=== PATIENT | male | born 1985 ===

== ENCOUNTER 2021-05-19 18:49 | Emergency (ER) | payer OTHER, SELFPAY ==
[2021-05-19 18:57] VITALS: BP 125/85; BP 142/75; PULSE 84; RESP 18; TEMP 37.3; O2SAT 96; BMI 30.1
[2021-05-19 19:05] LABS: Glucose, Whole Blood 140 mg/dL (60-115)
[2021-05-19 19:19] LABS: MANUAL DIFF FLAG NO
[2021-05-19 19:21] LABS: Basophils Percent Auto 0.5 % (0-2); Eosinophils Percent Auto 0.4 % (0-4); Hematocrit 41.8 % (42-52); Hemoglobin 14.5 g/dl (14.0-18.0); Imm Gran Abs Auto 0.01 X10*3/uL (0.00-0.03); Imm Gran Pct Auto 0.1 % (0.0-0.4); Lymphocytes Percent Auto 26.2 % (20-40); Mean Corpuscular HGB Conc 34.7 g/dl (31.0-36.0); Mean Corpuscular Hemoglobin 31.5 pg (27.0-33.0); Mean Corpuscular Volume 90.7 fL (80-98); Mean Platelet Volume 9.1 fL (9.4-12.4); Monocytes Absolute Auto 0.5 X10*3/uL (0.1-1.2); Monocytes Percent Auto 6.8 % (2-11); Neutrophils Absolute Auto 5.1 X10*3/uL (2.0-8.3); Platelet Count 260 X10*3/uL (160-400); Red Blood Count 4.61 X10*6/uL (4.60-5.80); Red Cell Distribution Width 13.2 % (11.0-16.0); White Blood Count 7.8 X10*3/uL (4.8-10.8)
--- NOTE | 2021-05-19 19:41 | ED_ITS ---
HPI - Seizure General Chief Complaint: Seizure Stated Complaint: hypoglycemia Time Seen by Provider: 05/19/21 19:41 Source: patient Mode of arrival: EMS Limitations: no limitations History of Present Illness HPI Narrative: patient's history of seizures for last 5 years after craniotomy for brain tumor taking Keppra and Depakote for last few days not taking his medication regularly and been drinking heavy drinking almost 1 pt of vodka daily had 2 seizures [id number] 45 minutes prior to arrival patient was alone at home he felt the seizure and sat down the couch according to him they lasted only for few minutes feels little confused after seizure but no fall no head injury Related Data Home Medications Medication Instructions Recorded Confirmed levetiracetam 1,000 mg tablet 1,000 mg PO BID 11/02/20 01/30/21 pantoprazole 40 mg tablet,delayed 40 mg PO DAILY 11/02/20 01/30/21 release Previous Rx's Medication Instructions Recorded nicotine (polacrilex) 4 mg buccal 4 mg PO Q8H PRN #81 maguns 01/08/21 lozenge citalopram 20 mg tablet 20 mg PO DAILY #90 tab 03/14/21 lorazepam 0.5 mg tablet 0.5 mg PO DAILY PRN 30 Days #30 tab 04/04/21 divalproex 250 mg tablet,delayed See Rx Instructions PO .COMPLEX 04/09/21 release #270 tab Allergies Allergy/AdvReac Type Severity Reaction Status Date / Time ibuprofen Allergy Unknown agitation Verified 03/07/20 00:00 No Known Allergies Allergy Unverified 08/10/20 15:45 [No Known Allergies*] Review of Systems Review of Systems: Constitutional : No Weight loss, No Fever, No Chills ENT/Mouth : No sore throat, No Rhinorrhea Eyes: No Eye Pain, No Swelling Cardiovascular : No Chest Pain, no palpitations Respiratory : No Cough, No Sputum, no shortness of breath Gastrointestinal : no Nausea, No Vomiting, No Diarrhea, No abdominal Pain, no black stools Genitourinary : No Dysuria, No Urinary Frequency Musculoskeletal : No joint pain, No Myalgias, No Joint Swelling Skin : No Skin Lesions, No rash Neuro : No Weakness, No Numbness, No Dizziness, No Headache Psych : No Anxiety/Panic, No Depression Heme/Lymph: No Bruising, No Lymphadenopathy Endocrine : No Polyuria, No Polydipsia All other systems reviewed and are negative [facility] Past Medical History Medical History Anxiety and depression Bipolar 1 disorder GERD (gastroesophageal reflux disease) Obesity (BMI 30-39.9) Seizure disorder Tobacco abuse Social History Social History Alcohol intake: current Alcohol intake frequency: a few times a month Advance Directives: No Advance Directives Information Provided: Yes Physical Exam Vital Signs: Vital Signs: Last Vital Signs Temp 99.1 F 05/19/21 18:57 Pulse 84 05/19/21 18:57 Resp 18 05/19/21 18:57 BP 125/85 05/19/21 18:57 Pulse Ox 96 05/19/21 18:57 Body Mass Index 30.1 Appearance: Alert. Oriented X3. No acute distress. Eyes: PERRLA, No Nystagmus ENT: Pharynx normal. Oral Mucosa moist no tongue bite Neck: Normal inspection. Neck supple. CVS: Normal heart rate and rhythm. Pulses normal. Respiratory: No respiratory distress. Equal air entry bilateral, no wheezing/rales/rhonchi Abdomen: Soft and nontender. Bowel sounds are present, no mass palpable, no CVA tenderness Skin: Skin warm and dry. Normal skin color. Normal skin turgor. Extremities: No lower extremity edema. No calf tenderness Neuro: Oriented X 3. No motor deficit. No sensory deficit.No cerebellar signs , cranial nerves II-XII intact MDM - Seizure MDM Narrative Medical decision making narrative: patient with schizophrenia with history of seizure disorder on multiple medication had 2 small seizures today usually he gets 1-2 seizures per month no postictal symptoms at this time patient id advised to follow with neurologist Lab Data Attestation: I reviewed the patient's lab results. Result diagrams: 05/19/21 19:15 05/19/21 19:15 Labs: Lab Results 05/19/21 05/19/21 05/19/21 Range/Units 18:56 19:15 19:15 WBC 7.8 (4.8-10.8) X10*3/uL RBC 4.61 (4.60-5.80) X10*6/uL Hgb 14.5 (14.0-18.0) g/dl Hct 41.8 L (42-52) % MCV 90.7 (80-98) fL MCH 31.5 (27.0-33.0) pg MCHC 34.7 (31.0-36.0) g/dl RDW 13.2 (11.0-16.0) % Plt Count 260 (160-400) X10*3/uL MPV 9.1 L (9.4-12.4) fL Immature Gran % (Auto) 0.1 (0.0-0.4) % Neut % (Auto) 66.0 (45-73) % Lymph % (Auto) 26.2 (20-40) % [place] % (Auto) 6.8 (2-11) % Eos % (Auto) 0.4 (0-4) % Baso % (Auto) 0.5 (0-2) % Lymph # (Auto) 2.0 (1.2-4.9) X10*3/uL [place] # (Auto) 0.5 (0.1-1.2) X10*3/uL Eos # (Auto) 0.0 (0.0-0.4) X10*3/uL Baso # (Auto) 0.0 (0.0-0.2) X10*3/uL Abs Immat Gran (auto) 0.01 (0.00-0.03) X10*3/uL Absolute Neuts (auto) 5.1 (2.0-8.3) X10*3/uL Absolute Nucleated RBC 0.000 (0.0-0.012) X10*3/uL Nucleated RBC % (auto) 0.0 (0.0-0.2) /100WBC Sodium 137 (135-145) mmol/L Potassium 3.5 (3.3-5.1) mmol/L Chloride 103 (96-108) mmol/L Carbon Dioxide 21 L (22-29) mmol/L Anion Gap 17 (12-20) BUN 7 L (9-16) mg/dL Creatinine 0.84 (0.5-1.4) mg/dL Estim Creat Clear Calc 142.1 Estimated GFR > 60 POC Glucose 140 H (60-115) mg/dL Random Glucose 144 H (60-115) mg/dL Calcium 8.5 (8.4-10.2) mg/dL Magnesium 1.5 L (1.6-2.6) mg/dL Total Bilirubin 0.4 (0.0-1.0) mg/dL Direct Bilirubin 0.3 (0.0-0.5) mg/dL AST 19 (5-37) U/L ALT 20 (0-40) U/L Alkaline Phosphatase 61 (39-117) U/L Total Protein 6.2 L (6.5-8.0) g/dL Albumin 3.6 (3.5-5.0) g/dL Lipase 13 (8-78) U/L Valproic Acid (50.0-100.0) mcg/mL Ethyl Alcohol mg/dL 05/19/21 05/19/21 Range/Units 19:15 19:15 WBC (4.8-10.8) X10*3/uL RBC (4.60-5.80) X10*6/uL Hgb (14.0-18.0) g/dl Hct (42-52) % MCV (80-98) fL MCH (27.0-33.0) pg MCHC (31.0-36.0) g/dl RDW (11.0-16.0) % Plt Count (160-400) X10*3/uL MPV (9.4-12.4) fL Immature Gran % (Auto) (0.0-0.4) % Neut % (Auto) (45-73) % Lymph % (Auto) (20-40) % [place] % (Auto) (2-11) % Eos % (Auto) (0-4) % Baso % (Auto) (0-2) % Lymph # (Auto) (1.2-4.9) X10*3/uL [place] # (Auto) (0.1-1.2) X10*3/uL Eos # (Auto) (0.0-0.4) X10*3/uL Baso # (Auto) (0.0-0.2) X10*3/uL Abs Immat Gran (auto) (0.00-0.03) X10*3/uL Absolute Neuts (auto) (2.0-8.3) X10*3/uL Absolute Nucleated RBC (0.0-0.012) X10*3/uL Nucleated RBC % (auto) (0.0-0.2) /100WBC Sodium (135-145) mmol/L Potassium (3.3-5.1) mmol/L Chloride (96-108) mmol/L Carbon Dioxide (22-29) mmol/L Anion Gap (12-20) BUN (9-16) mg/dL Creatinine (0.5-1.4) mg/dL Estim Creat Clear Calc Estimated GFR POC Glucose (60-115) mg/dL Random Glucose (60-115) mg/dL Calcium (8.4-10.2) mg/dL Magnesium (1.6-2.6) mg/dL Total Bilirubin (0.0-1.0) mg/dL Direct Bilirubin (0.0-0.5) mg/dL AST (5-37) U/L ALT (0-40) U/L Alkaline Phosphatase (39-117) U/L Total Protein (6.5-8.0) g/dL Albumin (3.5-5.0) g/dL Lipase (8-78) U/L Valproic Acid 47.2 L (50.0-100.0) mcg/mL Ethyl Alcohol 13 mg/dL Discharge Plan Discharge Clinical Impression: Seizure disorder Patient Disposition: Home, Self-Care Instructions: Epilepsy (ED) Additional Instructions: stop drinking alcohol and take medications on time. Follow with your neurologist Prescriptions: No Action nicotine (polacrilex) 4 mg lozenge 4 mg PO Q8H PRN (Reason: for nicotine cravings) Qty: 81 RF: 0 citalopram 20 mg tablet 20 mg PO DAILY Qty: 90 RF: 2 lorazepam 0.5 mg tablet 0.5 mg PO DAILY PRN (Reason: agitation) 30 Days Qty: 30 RF: 2 divalproex 250 mg tablet,delayed release (DR/EC) See Rx Instructions PO .COMPLEX Qty: 270 RF: 2 pantoprazole 40 mg tablet,delayed release (DR/EC) 40 mg PO DAILY RF: 0 levetiracetam [Keppra] 1,000 mg tablet 1,000 mg PO BID RF: 0 Interventions: ED Discharge Assessment Last Done: 05/19/21 20:44 Discharge Date/Time: 05/19/21 20:45
[2021-05-19 19:49] LABS: Ethanol 13 mg/dL
[2021-05-19 19:59] LABS: Valproate 47.2 mcg/mL (50.0-100.0)
[2021-05-19 20:08] LABS: Alanine Aminotransferase 20 U/L (0-40); Albumin Level 3.6 g/dL (3.5-5.0); Alkaline Phosphatase 61 U/L (39-117); Anion Gap 17 (12-20); Aspartate Amino Transferase 19 U/L (5-37); Bilirubin Direct 0.3 mg/dL (0.0-0.5); Bilirubin Total 0.4 mg/dL (0.0-1.0); Blood Urea Nitrogen 7 mg/dL (9-16); Calcium 8.5 mg/dL (8.4-10.2); Carbon Dioxide 21 mmol/L (22-29); Chloride 103 mmol/L (96-108); Creatinine Clr Calc Pharmacy 142.1; Estimated Glomerular Filt Rate > 60; Glucose Random 144 mg/dL (60-115); Lipase 13 U/L (8-78); Magnesium 1.5 mg/dL (1.6-2.6); Potassium 3.5 mmol/L (3.3-5.1); Sodium 137 mmol/L (135-145); Total Protein 6.2 g/dL (6.5-8.0)
== END 2021-05-19 20:45 | disposition home or self-care (01) ==
PROVIDERS: Emergency Provider Internal Medicine
DX: G40.909 Epilepsy, unspecified, not intractable, without status epilepticus (principal); F20.9 Schizophrenia, unspecified; Z79.899 Other long term (current) drug therapy
CPT/HCPCS: 36415; 80053; 80076; 80164; 82077; 82248; 82947; 83690; 83735; 85025; 99283

== ENCOUNTER 2022-03-29 17:57 | Inpatient (IN) | payer OTHER, SELFPAY ==
[2022-03-29 18:12] VITALS: BP 118/82; BP 131/75; PULSE 79; PULSE 84; RESP 18; TEMP 37.2; O2SAT 97; O2SAT 98; BMI 33.2
--- NOTE | 2022-03-29 18:56 | ED_ITS ---
HPI - Seizure General Chief Complaint: Seizure Stated Complaint: seizures Time Seen by Provider: 03/29/22 18:05 Source: patient Mode of arrival: EMS Limitations: no limitations History of Present Illness HPI Narrative: 37-year-old male with a past medical history of alcohol abuse and a seizure disorder status post brain tumor presents for seizures today. Patient states he had 2 or 3 seizures today there were not witnessed. The last 1 was just prior to arrival. States they lasted for couple of minutes. States he does have a history of alcohol withdrawal seizures, normally drinks 15 drinks a day, and his last drink was 24 hours ago. States he was hospitalized for alcohol withdrawal seizure at [facility] last year Today he said he was aware during his seizures, he had no loss of consciousness, no head strike, his face went numb but now that sensation is gone. He is on Keppra and Depakote. He does not see a neurologist. Related Data Previous Rx's Medication Instructions Recorded nicotine (polacrilex) 4 mg buccal 4 mg PO Q8H PRN #81 magnus 01/08/21 lozenge folic acid 1 mg tablet 1 mg PO DAILY 90 Days #90 tab 07/12/21 pyridoxine (vitamin B6) 50 mg 50 mg PO DAILY 90 Days #90 tab 07/12/21 tablet thiamine HCl (vitamin B1) 100 mg 100 mg PO DAILY 90 Days #90 tab 07/12/21 tablet lorazepam 0.5 mg tablet 0.5 mg PO DAILY PRN 30 Days #30 tab 11/22/21 divalproex 250 mg tablet,delayed 500 mg PO BID #270 tab 12/05/21 release citalopram 20 mg tablet 20 mg PO DAILY #90 tab 12/26/21 pantoprazole 40 mg tablet,delayed 40 mg PO DAILY 90 Days #90 tab 12/26/21 release levetiracetam 1,000 mg tablet 1,000 mg PO BID 90 Days #180 tab 01/17/22 (Keppra) acamprosate 333 mg tablet,delayed 666 mg PO TID 30 Days #180 tab 02/03/22 release Allergies Allergy/AdvReac Type Severity Reaction Status Date / Time ibuprofen Allergy Unknown agitation Verified 07/12/21 08:54 No Known Allergies Allergy Verified 07/12/21 08:54 [No Known Allergies*] Review of Systems Constitutional: Constitutional: Denies body ache(s), Denies chills, Denies fatigue, Denies fever(s), Denies headache(s), Denies malaise and Denies weakness Eyes: Eyes: Denies blurry vision and Denies diplopia ENT: Denies vertigo, Denies dizziness, Denies headache(s) and Denies throat swelling Cardiovascular: Cardiovascular: Denies chest pain, Denies syncope, Denies leg edema, Denies lightheadedness, Denies Loss of Consciousness, Denies palpitations and Denies dyspnea Respiratory: Respiratory: Denies chest congestion, Denies cough and Denies dyspnea Gastrointestinal: Gastrointestinal: Denies abdominal pain, Denies hematochezia, Denies constipation, Denies diarrhea and Denies vomiting Genitourinary: Genitourinary: Reports no additional male genitourinary complaints Musculoskeletal: Musculoskeletal: Reports no additional musculoskeletal complaints Neurologic: Denies Abnormal speech present, Denies confusion, Denies vertigo, Denies dizziness, Denies syncope, Denies headache(s), Reports seizure-like activity, Denies Sensory deficit (Neuro) and Denies weakness Psychiatric: Psychiatric: Denies anxiety, Denies confusion and Denies depression Endocrine: Endocrine: Denies fatigue and Denies palpitations Allergic/Immunologic: Allergic/Immunologic: Denies throat swelling PMFSH Past Medical History Medical History Anxiety and depression Bipolar 1 disorder GERD (gastroesophageal reflux disease) Obesity (BMI 30-39.9) Seizure disorder Tobacco abuse Social History Social History Housing: Apartment Alcohol intake: current Alcohol intake frequency: a few times a month Patient Tobacco Use Status: Current everyday Tobacco user Tobacco use type: Cigarette Cigarette Packs Per Day: 0.5 e-Cigarette/Vaping Use: Never Used Second Hand Smoke Exposure: No Advance Directives: No Advance Directives Information Provided: No service: No Current occupational status: unemployed Physical Exam Vital Signs: Vital Signs: Last Vital Signs Temp 99.1 F 03/29/22 20:36 Pulse 80 03/29/22 20:36 Resp 20 03/29/22 20:36 BP 128/79 03/29/22 20:36 Pulse Ox 97 03/29/22 20:36 BMI result Body Mass Index 33.2 Const: Other: Patient tremulous and sweaty General: No confusion Nutritional Appearance: well nourished Orientation/consciousness: patient oriented x3 and No confusion Limitations: no limitations HEENT: Other: tongue is normal, no lesions or bites on tongue or in buccal mucosa Head: Yes normal to inspection, Yes normocephalic and Yes atraumatic Ears: hearing grossly normal bilaterally General nose exam: Normal external nose present Face and sinus: Yes normal facial exam Mouth: Normal oral and palatal mucosa present, lip normal, tongue normal and moist mucous membranes Throat: Yes posterior oropharynx normal Eyes: Conjunctivae: conjunctivae normal Pupils: Equal, round and reactive pupils present EOM: EOMs intact bilaterally Neck: Neck: Yes full ROM, Yes no lymphadenopathy and Yes supple Resp: Effort & Inspection: normal respiratory effort and able to speak in complete sentences Auscultation: clear to auscultation bilaterally, no crackles, no rales, no rhonchi and no wheezes Cardio: Rate: regular rate Rhythm: regular rhythm Heart sounds: S1 normal heart sound present and S2 normal heart sound present GI: Inspection: Yes normal to inspection Palpation (GI): Soft to palpation, nontender, no guarding and not rigid Percussion: Yes normal to percussion Auscultation: normal bowel sounds Skin: General skin exam: no rashes or lesions noted Neuro: General: patient oriented x3, No confusion and Unable to assess gait Cranial nerves: Yes CN's II-XII intact bilaterally, Yes Facial sensation intact/muscles of mastication intact, Yes Equal, round and reactive pupils present, Yes Normal accommodation reflex present, Yes Bilaterally intact EOM present, Yes Nystagmus not present, Yes Normal facial strength present, Yes M idline tongue present, Yes Ability to bilaterally rotate head present and Yes Ability to bilaterally elevate shoulders present Cognition (Neuro): normal cognition Speech: No Abnormal speech present Gait exam (Neuro): Unable to assess gait Motor exam (neuro): 5/5 motor strength present throughout and Pronator motor function not present Sensory Exam: No Sensory deficit (Neuro) Deep tendon reflexes (DTR's): Right patellar reflex intensity grade: 1+ and Left patellar reflex intensity grade: 1+ Coordination: [id number] test normal and [id number] test normal Pupils: Normal pupillary reactivity/response: bilateral Extrem: General: Yes normal to inspection and Yes full ROM Psych: Appearance: grossly normal Affect: normal affect Attitude: cooperative Thought process: Normal thought process present Course Course Course Narrative: 37-year-old male with seizure disorder presents for reported 2-3 seizures today, last 1 just prior to arrival. Patient was not incontinent, did not bite his tongue. States he was aware during the whole seizure did not lose consciousness, did not strike his head. On exam, patient is tremulous and mildly diaphoretic, is neurologically intact, Patient is scoring 13 on CIWA, 1 mg Ativan given Will get alcohol, labs, chest x-ray, urine Drug screen Loaded patient with Keppra Reevaluation(s) Reevaluation #1: Alcohol is negative, CBC and CMP are unremarkable. Awaiting urine and urine dr ug screen. CIWA score is now 2. Will get lactic acid, if that returns positive, will admit for observation Reevaluation #2: Discussed with Dr Moreira, would like to admit for observation. UA negative. Lactic 1.2, Urine tox screen is negative. Lab tells me Keppra level needs to be drawn in the morning for send out Signed pt out to Dr Serna, pending if Hospitalist will admit for observation or not MDM - Seizure Lab Data Result diagrams: 03/29/22 18:57 03/29/22 18:57 Labs: Lab Results 03/29/22 03/29/22 03/29/22 Range/Units 18:57 18:57 18:57 WBC 7.2 (4.8-10.8) X10*3/uL RBC 4.84 (4.60-5.80) X10*6/uL Hgb 14.8 (14.0-18.0) g/dl Hct 42.0 (42.0-52.0) % MCV 86.8 (80.0-98.0) fL MCH 30.6 (27.0-33.0) pg MCHC 35.2 (31.0-36.0) g/dl RDW 12.8 (11.0-16.0) % Plt Count 305 (160-400) X10*3/uL MPV 8.9 L (9.4-12.4) fL Immature Gran % (Auto) 0.6 H (0.0-0.4) % Neut % (Auto) 67.1 (45-73) % Lymph % (Auto) 23.8 (20-40) % [place] % (Auto) 7.5 (2-11) % Eos % (Auto) 0.3 (0-4) % Baso % (Auto) 0.7 (0-2) % Lymph # (Auto) 1.7 (1.2-4.9) X10*3/uL [place] # (Auto) 0.5 (0.1-1.2) X10*3/uL Eos # (Auto) 0.0 (0.0-0.4) X10*3/uL Baso # (Auto) 0.1 (0.0-0.2) X10*3/uL Abs Immat Gran (auto) 0.04 H (0.00-0.03) X10*3/uL Absolute Neuts (auto) 4.8 (2.0-8.3) x10*3/uL Absolute Nucleated RBC 0.000 (0.0-0.012) X10*3/uL Nucleated RBC % (auto) 0.0 (0.0-0.2) /100WBC Sodium 140 (135-145) mmol/L Potassium 4.2 (3.3-5.1) mmol/L Chloride 108 (96-108) mmol/L Carbon Dioxide 24 (22-29) mmol/L Anion Gap 12 (12-20) BUN 9 (9-16) mg/dL Creatinine 1.00 (0.5-1.4) mg/dL Estim Creat Clear Calc 120.2 Estimated GFR > 60 Random Glucose 98 (60-115) mg/dL Lactic Acid (0.5-2.0) mmol/L Calcium 9.2 D (8.4-10.2) mg/dL Total Bilirubin 0.7 (0.0-1.0) mg/dL AST 23 (5-37) U/L ALT 38 (0-40) U/L Alkaline Phosphatase 65 (39-117) U/L Total Protein 6.7 (6.5-8.0) g/dL Albumin 3.6 (3.5-5.0) g/dL Urine Color Urine Appearance Urine pH (5.0-8.0) Ur Specific [place] (1.005-1.025) Urine Protein (NEG-TRACE) MG/DL Urine Glucose (UA) (NEG) MG/DL Urine Ketones (NEG) MG/DL Urine Blood (NEG) Urine Nitrite (NEG) Ur Leukocyte Esterase (NEG) Urine Opiates Screen (Not Detect) Urine Fentanyl Screen (Not Detect) Ur Barbiturates Screen (Not Detect) Ur Phencyclidine Scrn (Not Detect) Ur Amphetamines Screen (Not Detect) U Benzodiazepines Scrn (Not Detect) Urine Cocaine Screen (Not Detect) U Marijuana (THC) Screen (Not Detect) Ethyl Alcohol < 10 mg/dL 03/29/22 03/29/22 03/29/22 Range/Units 20:41 20:41 20:41 WBC (4.8-10.8) X10*3/uL RBC (4.60-5.80) X10*6/uL Hgb (14.0-18.0) g/dl Hct (42.0-52.0) % MCV (80.0-98.0) fL MCH (27.0-33.0) pg MCHC (31.0-36.0) g/dl RDW (11.0-16.0) % Plt Count (160-400) X10*3/uL MPV (9.4-12.4) fL Immature Gran % (Auto) (0.0-0.4) % Neut % (Auto) (45-73) % Lymph % (Auto) (20-40) % [place] % (Auto) (2-11) % Eos % (Auto) (0-4) % Baso % (Auto) (0-2) % Lymph # (Auto) (1.2-4.9) X10*3/uL [place] # (Auto) (0.1-1.2) X10*3/uL Eos # (Auto) (0.0-0.4) X10*3/uL Baso # (Auto) (0.0-0.2) X10*3/uL Abs Immat Gran (auto) (0.00-0.03) X10*3/uL Absolute Neuts (auto) (2.0-8.3) x10*3/uL Absolute Nucleated RBC (0.0-0.012) X10*3/uL Nucleated RBC % (auto) (0.0-0.2) /100WBC Sodium (135-145) mmol/L Potassium (3.3-5.1) mmol/L Chloride (96-108) mmol/L Carbon Dioxide (22-29) mmol/L Anion Gap (12-20) BUN (9-16) mg/dL Creatinine (0.5-1.4) mg/dL Estim Creat Clear Calc Estimated GFR Random Glucose (60-115) mg/dL Lactic Acid 1.2 (0.5-2.0) mmol/L Calcium (8.4-10.2) mg/dL Total Bilirubin (0.0-1.0) mg/dL AST (5-37) U/L ALT (0-40) U/L Alkaline Phosphatase (39-117) U/L Total Protein (6.5-8.0) g/dL Albumin (3.5-5.0) g/dL Urine Color YELLOW Urine Appearance CLEAR Urine pH 8.0 (5.0-8.0) Ur Specific [place] 1.015 (1.005-1.025) Urine Protein NEG (NEG-TRACE) MG/DL Urine Glucose (UA) NEG (NEG) MG/DL Urine Ketones NEG (NEG) MG/DL Urine Blood NEG (NEG) Urine Nitrite NEG (NEG) Ur Leukocyte Esterase NEG (NEG) Urine Opiates Screen Not Detected (Not Detect) Urine Fentanyl Screen Not Detected (Not Detect) Ur Barbiturates Screen Not Detected (Not Detect) Ur Phencyclidine Scrn Not Detected (Not Detect) Ur Amphetamines Screen Not Detected (Not Detect) U Benzodiazepines Scrn Not Detected (Not Detect) Urine Cocaine Screen Not Detected (Not Detect) U Marijuana (THC) Screen Not Detected (Not Detect) Ethyl Alcohol mg/dL Discharge Plan Discharge Clinical Impression: Generalized seizure, Alcohol abuse with withdrawal Patient Disposition: Admitted As Inpatient
[2022-03-29] MEDS: LORazepam 2 MG/ML VIAL 1 MG IVPUSH (19:00)
[2022-03-29] MEDS: levETIRAcetam in NaCl (iso-os) 1,000 MG/100 ML PIGGYBACK 400 MG IV (19:00)
[2022-03-29 19:01] LABS: MANUAL DIFF FLAG NO
[2022-03-29 19:23] LABS: Ethanol < 10 mg/dL
[2022-03-29 19:24] LABS: Basophils Absolute Auto 0.1 X10*3/uL (0.0-0.2); Basophils Percent Auto 0.7 % (0-2); Eosinophils Percent Auto 0.3 % (0-4); Hemoglobin 14.8 g/dl (14.0-18.0); Imm Gran Abs Auto 0.04 X10*3/uL (0.00-0.03); Imm Gran Pct Auto 0.6 % (0.0-0.4); Lymphocytes Absolute Auto 1.7 X10*3/uL (1.2-4.9); Lymphocytes Percent Auto 23.8 % (20-40); Mean Corpuscular HGB Conc 35.2 g/dl (31.0-36.0); Mean Corpuscular Hemoglobin 30.6 pg (27.0-33.0); Mean Corpuscular Volume 86.8 fL (80.0-98.0); Mean Platelet Volume 8.9 fL (9.4-12.4); Monocytes Absolute Auto 0.5 X10*3/uL (0.1-1.2); Monocytes Percent Auto 7.5 % (2-11); Neutrophils Absolute Auto 4.8 x10*3/uL (2.0-8.3); Neutrophils Percent Auto 67.1 % (45-73); Platelet Count 305 X10*3/uL (160-400); Red Blood Count 4.84 X10*6/uL (4.60-5.80); Red Cell Distribution Width 12.8 % (11.0-16.0); White Blood Count 7.2 X10*3/uL (4.8-10.8)
[2022-03-29 19:26] LABS: Alanine Aminotransferase 38 U/L (0-40); Albumin Level 3.6 g/dL (3.5-5.0); Alkaline Phosphatase 65 U/L (39-117); Anion Gap 12 (12-20); Aspartate Amino Transferase 23 U/L (5-37); Bilirubin Total 0.7 mg/dL (0.0-1.0); Blood Urea Nitrogen 9 mg/dL (9-16); Calcium 9.2 mg/dL (8.4-10.2); Carbon Dioxide 24 mmol/L (22-29); Chloride 108 mmol/L (96-108); Creatinine Clr Calc Pharmacy 120.2; Estimated Glomerular Filt Rate > 60; Glucose Random 98 mg/dL (60-115); Potassium 4.2 mmol/L (3.3-5.1); Sodium 140 mmol/L (135-145); Total Protein 6.7 g/dL (6.5-8.0)
[2022-03-29 19:29] VITALS: BP 134/83; PULSE 76; RESP 15; O2SAT 97
[2022-03-29 20:36] VITALS: BP 128/79; PULSE 80; RESP 20; TEMP 37.3; O2SAT 97
[2022-03-29 20:54] LABS: Appearance Urine CLEAR; Color Urine YELLOW; Glucose Urine UA NEG (NEG); Leukocyte Esterase Urine NEG (NEG); Nitrite Urine NEG (NEG); Specific Gravity - Urine 1.015 (1.005-1.025); Urine Blood NEG (NEG); Urine Ketones NEG (NEG); Urine Protein NEG (NEG-TRACE)
[2022-03-29 21:05] LABS: Lactic Acid 1.2 mmol/L (0.5-2.0)
[2022-03-29 21:10] LABS: Amphetamine Screen Urine Not Detected (Not Detect); Barbiturates, Urine Not Detected (Not Detect); Benzodiazepines Screen Urine Not Detected (Not Detect); Cannabinoid Screen Urine Not Detected (Not Detect); Cocaine Screen Urine Not Detected (Not Detect); Fentanyl, urine Not Detected (Not Detect); Opiate Screen Urine Not Detected (Not Detect); Phencyclidine Screen Urine Not Detected (Not Detect)
[2022-03-29 21:36] LABS: Valproate 31.2 mcg/mL (50.0-100.0)
[2022-03-29 21:55] LABS: COVID-19 Test Negative (Negative)
[2022-03-29] MEDS: PHENobarbitaL 200 MG, PHENobarbitaL 60 MG, PHENobarbitaL 15 MG 275 MG PO (22:57)
[2022-03-29] MEDS: Enoxaparin Sodium 40 MG/0.4 ML SYRINGE SUBCUT (22:58)
[2022-03-29] MEDS: 0.9 % Sodium Chloride Flush 3 ML SYRINGE IVFLUSH (23:00)
[2022-03-30] VITALS (8 sets, daily range): BP systolic 123–145; BP diastolic 72–95; PULSE 62–84; RESP 18–21; TEMP 36.1–37.2; O2SAT 94–96; BMI 35.6
[2022-03-30] MEDS: PHENobarbitaL 200 MG, PHENobarbitaL 15 MG 215 MG PO ×2 (01:32→04:33)
[2022-03-30 06:49] LABS: MANUAL DIFF FLAG NO
[2022-03-30 06:56] LABS: Basophils Absolute Auto 0.1 X10*3/uL (0.0-0.2); Basophils Percent Auto 0.7 % (0-2); Eosinophils Absolute Auto 0.1 X10*3/uL (0.0-0.4); Eosinophils Percent Auto 1.1 % (0-4); Hemoglobin 14.2 g/dl (14.0-18.0); Imm Gran Abs Auto 0.03 X10*3/uL (0.00-0.03); Imm Gran Pct Auto 0.4 % (0.0-0.4); Lymphocytes Absolute Auto 2.8 X10*3/uL (1.2-4.9); Lymphocytes Percent Auto 38.8 % (20-40); Mean Corpuscular HGB Conc 34.6 g/dl (31.0-36.0); Mean Corpuscular Hemoglobin 30.1 pg (27.0-33.0); Monocytes Absolute Auto 0.5 X10*3/uL (0.1-1.2); Monocytes Percent Auto 7.2 % (2-11); Neutrophils Absolute Auto 3.7 x10*3/uL (2.0-8.3); Neutrophils Percent Auto 51.8 % (45-73); Platelet Count 282 X10*3/uL (160-400); Red Blood Count 4.71 X10*6/uL (4.60-5.80); Red Cell Distribution Width 12.5 % (11.0-16.0); White Blood Count 7.1 X10*3/uL (4.8-10.8)
[2022-03-30 07:11] LABS: Anion Gap 12 (12-20); Blood Urea Nitrogen 9 mg/dL (9-16); Carbon Dioxide 26 mmol/L (22-29); Chloride 104 mmol/L (96-108); Creatinine Clr Calc Pharmacy 115.4; Estimated Glomerular Filt Rate > 60; Glucose Random 87 mg/dL (60-115); Potassium 3.8 mmol/L (3.3-5.1); Sodium 138 mmol/L (135-145)
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
--- NOTE | 2022-03-30 08:06 | PHA.MEDREC ---
Pharmacy Consult ? Medication Reconciliation Pharmacy has completed the medication reconciliation. Per patient, last time medication was taken was before he got here yesterday. Thanks Arvind
[2022-03-30] MEDS: Thiamine HCL 100 MG TABLET PO (09:04)
[2022-03-30] MEDS: Folic Acid 1 MG TABLET PO (09:04)
[2022-03-30] MEDS: Nicotine 21 MG PATCH.TD24 TRANSDERMA (09:04)
[2022-03-30] MEDS: 0.9 % Sodium Chloride Flush 3 ML SYRINGE IVFLUSH ×2 (09:06→17:26)
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
--- NOTE | 2022-03-30 15:31 | HO.PM.IMPN ---
Subjective Subjective Date of Service: 03/30/22 Interval History: the patient was seen and evaluated this morning Laying in bed, feels comfortable Denies any recurrence of seizure No reported other overnight events. Systemic review: No fever, chills or weakness No chest pain, palpitation No shortness of breath or coughing No abdominal pain, nausea or vomiting No urinary symptoms No any rash or wounds Physical Exam Vital Signs: Vital Signs: Last Vital Signs Temp 99.0 F 03/30/22 12:00 Pulse 84 03/30/22 12:00 Resp 20 03/30/22 12:00 BP 135/84 03/30/22 12:00 Pulse Ox 94 03/30/22 12:00 BMI result Body Mass Index 35.6 Const: Other: Constitutional : Alert, oriented, mildly anxious Neck : Normal inspection, Supple Cardiovascular : RRR, no JVP, no lower extremity edema Respiratory : fair bilateral air entry, no crackles, wheezes or rhonchi Gastrointestinal: soft, lax, Normal bowel sounds, Non tender Skin : Warm, Dry Neurological : Alert & oriented x3, No focal deficit , CN 2-12 within normal Objective Data Active Medications Acetaminophen (Acetaminophen 325 Mg Tablet) 650 mg PO Q6H PRN PRN Reason: Pain, Mild (Pain Scale 1-3) Docusate Sodium (Docusate Sodium 100 Mg Capsule) 100 mg PO DAILY PRN PRN Reason: Constipation Enoxaparin Sodium (Enoxaparin Sodium 40 Mg/0.4 Ml Syringe) 40 mg SUBCUT Q24H [facility] Last Admin: 03/29/22 22:58 Dose: 40 mg Documented by: HORTENSIA Folic Acid (Folic Acid 1 Mg Tablet) 1 mg PO DAILY [facility] Last Admin: 03/30/22 09:04 Dose: 1 mg Documented by: [facility] Nicotine (Nicotine 21 Mg Patch.Td24) 21 mg TRANSDERMA DAILY [facility] Last Admin: 03/30/22 09:04 Dose: 21 mg Documented by: [facility] Ondansetron HCl (Ondansetron Hcl 4 Mg/2 Ml Vial) 4 mg IVPUSH Q8H PRN PRN Reason: Nausea and Vomiting Pharmacy Consult (Consult Rx Etoh Phenob Po Dose) 1 each MISCELLANE ONCE PRN; Protocol PRN Reason: Consult order Pharmacy Consult (Consult Rx Perform Med Rec) 1 each MISCELLANE ONCE PRN PRN Reason: Consult order Phenobarbital (Phenobarbital 15 Mg Tablet) 45 mg PO BID [facility]; Protocol Stop: 04/01/22 09:01 Phenobarbital (Phenobarbital 30 Mg Tablet) 30 mg PO BID [facility]; Protocol Stop: 04/03/22 09:01 Phenobarbital (Phenobarbital 30 Mg Tablet) 30 mg PO DAILY [facility]; Protocol Stop: 04/04/22 09:01 Sodium Chloride (0.9 % Sodium Chloride Flush 3 Ml Syringe) 3 ml IVFLUSH QSHIFT [facility] Last Admin: 03/30/22 09:06 Dose: 3 ml Documented by: [facility] Thiamine HCl (Thiamine Hcl 100 Mg Tablet) 100 mg PO DAILY [facility] Last Admin: 03/30/22 09:04 Dose: 100 mg Documented by: ROC Labs CBC & Chem 7: 03/30/22 06:37 03/30/22 06:37 Labs: Laboratory Results - last 24 hr 03/29/22 03/29/22 03/29/22 18:57 18:57 18:57 MCV 86.8 MCH 30.6 MCHC 35.2 RDW 12.8 Plt Count 305 MPV 8.9 L Immature Gran % (Auto) 0.6 H Neut % (Auto) 67.1 Lymph % (Auto) 23.8 [facility] % (Auto) 7.5 Eos % (Auto) 0.3 Baso % (Auto) 0.7 Lymph # (Auto) 1.7 [facility] # (Auto) 0.5 Eos # (Auto) 0.0 Baso # (Auto) 0.1 Abs Immat Gran (auto) 0.04 H Absolute Neuts (auto) 4.8 Absolute Nucleated RBC 0.000 Nucleated RBC % (auto) 0.0 Anion Gap 12 Estim Creat Clear Calc 120.2 Estimated GFR > 60 Random Glucose 98 Lactic Acid Calcium 9.2 D Total Bilirubin 0.7 AST 23 ALT 38 Alkaline Phosphatase 65 Total Protein 6.7 Albumin 3.6 Urine Color Urine Appearance Urine pH Ur Specific [place] Urine Protein Urine Glucose (UA) Urine Ketones Urine Blood Urine Nitrite Ur Leukocyte Esterase Urine Opiates Screen Urine Fentanyl Screen Ur Barbiturates Screen Valproic Acid 31.2 L Ur Phencyclidine Scrn Ur Amphetamines Screen U Benzodiazepines Scrn Urine Cocaine Screen U Marijuana (THC) Screen Ethyl Alcohol < 10 COVID-19 ([facility]) COVID-19 Clin Com 03/29/22 03/29/22 03/29/22 20:41 20:41 20:41 MCV MCH MCHC RDW Plt Count MPV Immature Gran % (Auto) Neut % (Auto) Lymph % (Auto) [facility] % (Auto) Eos % (Auto) Baso % (Auto) Lymph # (Auto) [facility] # (Auto) Eos # (Auto) Baso # (Auto) Abs Immat Gran (auto) Absolute Neuts (auto) Absolute Nucleated RBC Nucleated RBC % (auto) Anion Gap Estim Creat Clear Calc Estimated GFR Random Glucose Lactic Acid 1.2 Calcium Total Bilirubin AST ALT Alkaline Phosphatase Total Protein Albumin Urine Color YELLOW Urine Appearance CLEAR Urine pH 8.0 Ur Specific [place] 1.015 Urine Protein NEG Urine Glucose (UA) NEG Urine Ketones NEG Urine Blood NEG Urine Nitrite NEG Ur Leukocyte Esterase NEG Urine Opiates Screen Not Detected Urine Fentanyl Screen Not Detected Ur Barbiturates Screen Not Detected Valproic Acid Ur Phencyclidine Scrn Not Detected Ur Amphetamines Screen Not Detected U Benzodiazepines Scrn Not Detected Urine Cocaine Screen Not Detected U Marijuana (THC) Screen Not Detected Ethyl Alcohol COVID-19 ([facility]) COVID-19 [facility] 03/29/22 03/30/22 03/30/22 21:24 06:37 06:37 MCV 87.0 MCH 30.1 MCHC 34.6 RDW 12.5 Plt Count 282 MPV 9.0 L Immature Gran % (Auto) 0.4 Neut % (Auto) 51.8 Lymph % (Auto) 38.8 [facility] % (Auto) 7.2 Eos % (Auto) 1.1 Baso % (Auto) 0.7 Lymph # (Auto) 2.8 [facility] # (Auto) 0.5 Eos # (Auto) 0.1 Baso # (Auto) 0.1 Abs Immat Gran (auto) 0.03 Absolute Neuts (auto) 3.7 Absolute Nucleated RBC 0.000 Nucleated RBC % (auto) 0.0 Anion Gap 12 Estim Creat Clear Calc 115.4 Estimated GFR > 60 Random Glucose 87 Lactic Acid Calcium 9.0 Total Bilirubin AST ALT Alkaline Phosphatase Total Protein Albumin Urine Color Urine Appearance Urine pH Ur Specific [place] Urine Protein Urine Glucose (UA) Urine Ketones Urine Blood Urine Nitrite Ur Leukocyte Esterase Urine Opiates Screen Urine Fentanyl Screen Ur Barbiturates Screen Valproic Acid Ur Phencyclidine Scrn Ur Amphetamines Screen U Benzodiazepines Scrn Urine Cocaine Screen U Marijuana (THC) Screen Ethyl Alcohol COVID-19 ([facility]) Negative COVID-19 Clin Com See Note Assessment and Plan (1) Breakthrough seizure: Status: Acute (2) Alcohol abuse with withdrawal: Status: Acute Plan 37 male with past medical history bipolar disorder, alcohol abuse who presents to the hospital with seizure episode # breakthrough seizure secondary to noncompliance with his medications as well as alcohol withdrawal seizure Continue Walt Kline # alcohol abuse with withdrawal CIWA of 13 on arrival to the ED Continue phenobarb protocol folic acid and thiamine supplement # nicotine abuse patient smokes 1 pack per day nicotine patch daily # bipolar disorder/anxiety and depression resume home medications DVT prophylaxis: Lovenox Quality Stroke Does the patient have a stroke diagnosis?: No VTE Prior VTE?: No VTE Risk Level:: Medical - moderate - high VTE Device Contraindication: Treatment Not Indicated VTE Drug Contraindication: N/A - Med Ordered
[2022-03-30] MEDS: levETIRAcetam 1,000 MG TABLET 1000 MG PO ×2 (17:26→20:43)
[2022-03-30] MEDS: Divalproex Sodium 500 MG TABLET.DR PO ×2 (17:26→20:43)
[2022-03-30] MEDS: PHENobarbitaL 15 MG TABLET 45 MG PO (20:42)
[2022-03-30] MEDS: Acamprosate Calcium 333 MG TABLET.DR 666 MG PO (20:43)
[2022-03-30] MEDS: Enoxaparin Sodium 40 MG/0.4 ML SYRINGE SUBCUT (22:10)
[2022-03-31] MEDS: 0.9 % Sodium Chloride Flush 3 ML SYRINGE IVFLUSH ×2 (00:45→10:51)
[2022-03-31 03:51] VITALS: BP 124/78; PULSE 75; RESP 18; TEMP 36.2; O2SAT 97
[2022-03-31 07:22] LABS: Anion Gap 12 (12-20); Blood Urea Nitrogen 10 mg/dL (9-16); Carbon Dioxide 24 mmol/L (22-29); Chloride 103 mmol/L (96-108); Creatinine Clr Calc Pharmacy 128.5; Estimated Glomerular Filt Rate > 60; Glucose Random 82 mg/dL (60-115); Potassium 4.1 mmol/L (3.3-5.1); Sodium 135 mmol/L (135-145)
[2022-03-31 07:58] VITALS: BP 135/61; PULSE 77; RESP 20; TEMP 36.5; O2SAT 95
--- NOTE | 2022-03-31 10:25 | P.DS_ITS ---
DS: Providers Provider Date of Service: 03/31/22 Date of admission: 03/29/22 22:10 Primary care physician: Unknown Physician DS: Diagnosis Discharge Diagnosis (1) Breakthrough seizure: Status: Acute (2) Alcohol abuse with withdrawal: Status: Acute (3) Tobacco abuse: Status: Acute DS: Summary Hospital Course Hospital Course: Admission note HPI This is a 37-year-old male with past medical history of bipolar disorder, anxiety and depression, seizure disorder on Depakote and Keppra who presents to the hospital with breakthrough seizure.? Patient reports that he was not feeling well today, he had a binge drinking episode from Friday through , he stop drinking on , and has been feeling very jittery and anxious on the day prior to presentation.? ProStat he got home from work and had to seizure- like episodes where he was lucid through 1 of them.? He denies any loss of bladder or bowel control, no biting his tongue, reports compliance with his antiseizure medications.? Patient reports history of withdrawal seizure.? He reports being postictal and confused on waking up On arrival to the ED patient hemodynamically stable with no significant abnormal vitals Labs were significant for WBC count of 7.2, lactic acid of 1.2, UA negative, valproic acid of 31.2 Hospital course The patient was admitted on phenobarbital protocol for alcohol withdrawal symptoms. His CIWA score was of 15 at time of presentation and dropped to 0 at the day of discharge. The patient started on his home medications for seizure with good response as no more seizure activity happen during the hospital stay. He was found to have low valproic acid level and Keppra level still pending at the day of discharge but he report being not adherent to his home medications. Smoker, will discharge in nicotine patches. Advised to quit smoking. We advise you complete abstinence from alcohol continue home medications as prescribed Time Spent with Patient Time attestation: Total time spent providing and/or coordinating discharge services: Discharge coordination time: Greater than 30 minutes Quality: Safe Use of Opioids Does Pt have an Active Cancer Diagnosis on the Problem List?: No Quality: Stroke Does the patient have a stroke diagnosis?: No Physical Exam Vital Signs: Vital Signs: Last Vital Signs Temp 97.7 F 03/31/22 07:58 Pulse 77 03/31/22 07:58 Resp 20 03/31/22 07:58 BP 135/61 03/31/22 07:58 Pulse Ox 95 03/31/22 07:58 BMI result Body Mass Index 35.6 Const: Other: Constitutional : Alert, oriented, not in distress Neck : Normal inspection, Supple Cardiovascular : RRR, no JVP, no lower extremity edema Respiratory : fair bilateral air entry, no crackles, wheezes or rhonchi Gastrointestinal: soft, lax, Normal bowel sounds, Non tender Skin : Warm, Dry Neurological : Alert & oriented x3, No focal deficit , CN 2-12 within normal DS: Data Data Completed and Pending Labs on day of discharge: Laboratory Results - last 24 hr 03/31/22 05:58 Sodium 135 Potassium 4.1 Chloride 103 Carbon Dioxide 24 Anion Gap 12 BUN 10 Creatinine 0.97 Estim Creat Clear Calc 128.5 Estimated GFR > 60 Random Glucose 82 Calcium 9.0 Discharge Plan Discharge Patient Disposition: Home, Self-Care Discharge Diagnosis: Breakthrough seizure Alcohol withdrawal Referrals: Physician,Unknown J [Primary Care Provider] - 1 Week Discharge Medications: Continued lorazepam 0.5 mg tablet 0.5 mg PO DAILY PRN (Reason: agitation) 30 Days Qty: 30 2RF divalproex 250 mg tablet,delayed release (DR/EC) 500 mg PO BID Qty: 270 3RF citalopram 20 mg tablet 20 mg PO DAILY Qty: 90 0RF pantoprazole 40 mg tablet,delayed release (DR/EC) 40 mg PO DAILY 90 Days Qty: 90 0RF levetiracetam [Keppra] 1,000 mg tablet 1,000 mg PO BID 90 Days Qty: 180 1RF acamprosate 333 mg tablet,delayed release (DR/EC) 666 mg PO TID 30 Days Qty: 180 0RF Discharge Orders: Discharge Order (Routine); Ordered 03/31/22 Ordered By: Phi Warren Diet: advance to usual diet Activity on Discharge: As tolerated Stand Alone Forms: Patient Portal Discharge page Care Plan Goals: Read below Health Concerns: Read below Plan of Treatment: Read below Assessment: You were admitted to the hospital for evaluation of breakthrough seizure and alcohol withdrawal. You were treated with your home medications with addition of phenobarbital for alcohol withdrawal with good response as no recurrence of seizure activity while in the hospital. We advise you complete abstinence from alcohol continue home medications as prescribed
[2022-03-31] MEDS: Divalproex Sodium 500 MG TABLET.DR PO (10:50)
[2022-03-31] MEDS: Acamprosate Calcium 333 MG TABLET.DR 666 MG PO (10:50)
[2022-03-31] MEDS: levETIRAcetam 1,000 MG TABLET 1000 MG PO (10:50)
[2022-03-31] MEDS: PHENobarbitaL 15 MG TABLET 45 MG PO (10:50)
[2022-03-31] MEDS: Thiamine HCL 100 MG TABLET PO (10:50)
[2022-03-31] MEDS: Folic Acid 1 MG TABLET PO (10:51)
[2022-03-31] MEDS: Nicotine 21 MG PATCH.TD24 TRANSDERMA (10:51)
--- NOTE | 2022-03-31 11:50 | MHC.CM.PN ---
PT WILL DC HOME TODAY WITH NO SERVICES PT TO ARRANGE TRANSPORT
== END 2022-03-31 13:11 | disposition home or self-care (01) | DRG 101 ==
LOC: HO.ED 21:06 → HO.EDOVER 22:37 → HO.IMC 03-30 03:00
PROVIDERS: Physician Assistant; Admitting Provider Internal Medicine; Emergency Provider Emergency Medicine; PCP Internal Medicine; Visit Provider Student in an Organized Health Care Education/Training Program
DX: G40.909 Epilepsy, unspecified, not intractable, without status epilepticus (principal); F10.139 Alcohol abuse with withdrawal, unspecified; K21.9 Gastro-esophageal reflux disease without esophagitis; F31.9 Bipolar disorder, unspecified; F17.210 Nicotine dependence, cigarettes, uncomplicated; Z71.6 Tobacco abuse counseling; Z91.14 Patient's other noncompliance with medication regimen; Z20.822 Contact with and (suspected) exposure to COVID-19; Z88.6 Allergy status to analgesic agent; Z79.899 Other long term (current) drug therapy
CPT/HCPCS: 36415; 80048; 80053; 80164; 80177; 80307; 81003; 82077; 83605; 85025; 87635; 96374; 96375; 99285; J1650; J1953; J2060

== ENCOUNTER 2022-08-21 05:59 | Emergency (ER) | payer OTHER, SELFPAY ==
[2022-08-21 06:06] VITALS: BP 138/78; PULSE 89; RESP 17; TEMP 36.3; O2SAT 94; BMI 32.3
[2022-08-21 06:31] LABS: MANUAL DIFF FLAG NO
[2022-08-21 06:34] LABS: Basophils Absolute Auto 0.1 X10*3/uL (0.0-0.2); Basophils Percent Auto 0.8 % (0-2); Eosinophils Percent Auto 0.4 % (0-4); Hematocrit 41.7 % (42.0-52.0); Hemoglobin 14.6 g/dl (14.0-18.0); Imm Gran Abs Auto 0.03 X10*3/uL (0.00-0.03); Imm Gran Pct Auto 0.4 % (0.0-0.4); Lymphocytes Absolute Auto 3.3 X10*3/uL (1.2-4.9); Lymphocytes Percent Auto 45.6 % (20-40); Mean Corpuscular Hemoglobin 30.8 pg (27.0-33.0); Mean Platelet Volume 9.3 fL (9.4-12.4); Monocytes Absolute Auto 0.5 X10*3/uL (0.1-1.2); Monocytes Percent Auto 7.2 % (2-11); Neutrophils Absolute Auto 3.3 x10*3/uL (2.0-8.3); Neutrophils Percent Auto 45.6 % (45-73); Platelet Count 314 X10*3/uL (160-400); Red Blood Count 4.74 X10*6/uL (4.60-5.80); Red Cell Distribution Width 12.5 % (11.0-16.0); White Blood Count 7.2 X10*3/uL (4.8-10.8)
[2022-08-21 06:56] LABS: Alanine Aminotransferase 32 U/L (0-40); Alkaline Phosphatase 54 U/L (39-117); Anion Gap 17 (12-20); Aspartate Amino Transferase 25 U/L (5-37); Bilirubin Total 0.3 mg/dL (0.0-1.0); Blood Urea Nitrogen 10 mg/dL (9-16); Calcium 8.9 mg/dL (8.4-10.2); Carbon Dioxide 25 mmol/L (22-29); Chloride 106 mmol/L (96-108); Creatinine Clr Calc Pharmacy 111.1; Estimated Glomerular Filt Rate > 60; Glucose Random 125 mg/dL (60-115); Potassium 3.6 mmol/L (3.3-5.1); Sodium 144 mmol/L (135-145); Total Protein 6.9 g/dL (6.5-8.0)
--- OUTSIDE RECORDS SUMMARY | 2022-08-21 19:01 | XMS_ITS | Continuity of Care Document ---
:1985 Author Organization [facility] Address [address], [address]rd Floor, [address] [place] [id number] Care Team Providers Name Role Phone Po Marilyn ESTEBAN Primary Care Physician Encounter [facility] Date(s): 11/03/20 - 12/03/20 [facility] [address] [place], [address], [address] [place] [id number] Allergies, Adverse Reactions, Alerts No Known Medication Allergies Immunizations Given and Recorded Vaccine Date Status Refusal Reason influenza virus vaccine, inactivated1 10/13/14 Given pneumococcal 23-valent vaccine 07/20/14 Given tetanus/diphtheria/pertussis, acel(Tdap) 12/29/09 Given 1Result Comment: [10/13/2014] Trivalent [id number] Medications Depakote By Mouth, 3 times a day, 0 Refills, Maintenance, 04/30/18 9:01:23 EDT Start Date: 04/30/18 Status: OrderedlevETIRAcetam 1000 mg oral tablet 1 tablet = 1,000 mg, By Mouth, Every 12 hours, do not crush or chew, # 60 tablet, 8 Refills, Maintenance, 11/03/20 12:15:00 EST, Tablet, [id number] Start Date: 11/03/20 Stop Date: 07/31/21 Status: Ordered Problem List Condition Effective Dates Status Health Status Informant Abnormal brain MRI(Confirmed)1 Active Tobacco abuse(Confirmed) Active 1Need to have follow up study Social History Social History Type Response Smoking Status Current every day smoker entered on: 08/16/14 Sex
--- OUTSIDE RECORDS SUMMARY | 2022-08-21 19:01 | XMS_ITS | Continuity of Care Document ---
:1985 Author Organization [facility] Address [address] [place] [address], [address] [place] [address]- Care Team Providers Name Role Phone Marilyn Myrick MD Primary Care Phys[place] [facility] [place] 08/01/[address], [address] [place], [place] [address] Attending Physician: Not on Staff, Attending MD Referring Physician: Marilyn Myrick MD Allergies, Adverse Reactions, Alerts No Known Medication Allergies Immunizations Given and Recorded Vaccine Date Status Refusal Reason influenza virus vaccine, inactivated1 10/13/14 Given pneumococcal 23-valent vaccine 07/20/14 Given tetanus/diphtheria/pertussis, acel(Tdap) 12/29/09 Given 1Result Comment: [10/13/2014] Trivalent 4006-5501 Medications acamprosate 333 mg oral delayed release tablet 2 tablet = 666 mg, By Mouth, 3 times a day, # 180 tablet, 0 Refills, Maintenance, 06/11/21 13:10:00 EDT, CR Tablet, [facility], Partial fill upon patient request if the prescription is for a schedule II opioid drug. Start Date: 06/11/21 Status: Orderedcitalopram 20 mg oral tablet 1 tablet = 20 mg, By Mouth, Daily, # 30 tablet, 0 Refills, Maintenance, 06/09/21 8:24:00 EDT, Tablet, Partial fill upon patient request if the prescription is for a schedule II opioid drug. Start Date: 06/09/21 Status: Ordereddivalproex sodium 500 mg oral enteric coated tablet = 500 mg, By Mouth, 2 times a day, # 60 tablet, 0 Refills, Maintenance, 06/11/21 12:45:00 EDT, Tablet, [facility], Partial fill upon patient request if the prescription is for a schedule II opioid drug. Start Date: 06/11/21 Stop Date: 07/11/21 Status: Orderedfolic acid 1 mg oral tablet 1 mg, 1, tablet, By Mouth, Daily, # 30 tablet, Refills 0, Tot. Refills 0, Maintenance, 06/11/21 12:46:00 EDT, Route to Pharmacy Electronically, [facility], Partial fill upon patient request if the prescription is for a schedule II opioid... Start Date: 06/11/21 Status: OrderedlevETIRAcetam 1000 mg oral tablet 1 tablet = 1,000 mg, By Mouth, 2 times a day, # 60 tablet, 0 Refills, Maintenance, 06/09/21 8:24:00 EDT, Tablet, Partial fill upon patient request if the prescription is for a schedule II opioid drug. Start Date: 06/09/21 Status: OrderedLORazepam 0.5 mg oral tablet 1 tablet = 0.5 mg, By Mouth, Daily, PRN anxiety, 0 Refills, Maintenance, 06/09/21 8:24:00 EDT, Tablet, Partial fill upon patient request if the prescription is for a schedule II opioid drug. Start Date: 06/09/21 Status: Ordered Problem List Condition Effective Dates Status Health Status Informant Abnormal brain MRI(Confirmed)1 Active Tobacco abuse(Confirmed) Active 1Need to have follow up study Social History Social History Type Response Smoking Status Current every day smoker entered on: 08/16/14 Sex
--- OUTSIDE RECORDS SUMMARY | 2022-08-21 19:01 | XMS_ITS | Continuity of Care Document ---
:1985 Author Organization [address], [address] [place] [address]- Care Team Providers Name Role Phone Po Marilyn ESTEBAN Primary Care Physician [place] [facility] [place] 08/01/[address], [address] [place], [place] [address] Attending Physician: Jaclyn Prado Admitting Physician: AdmJaclyn butler Referring Physician: AdmtrJaclyn Allergies, Adverse Reactions, Alerts No Known Medication Allergies Immunizations Given and Recorded Vaccine Date Status Refusal Reason influenza virus vaccine, inactivated1 10/13/14 Given pneumococcal 23-valent vaccine 07/20/14 Given tetanus/diphtheria/pertussis, acel(Tdap) 12/29/09 Given 1Result Comment: [10/13/2014] Trivalent [id number] Medications acamprosate 333 mg oral delayed release tablet 2 tablet = 666 mg, By Mouth, 3 times a day, # 180 tablet, 0 Refills, Maintenance, 06/11/21 13:10:00 EDT, CR Tablet, [facility], Partial fill upon patient [...] 0 Refills, Maintenance, 06/11/21 12:45:00 EDT, Tablet, [facility], Partial fill upon patient request if the prescription is for a schedule II opioid drug. Start Date: 06/11/21 Stop Date: 07/11/21 Status: Orderedfolic acid 1 mg oral tablet 1 mg, 1, tablet, By Mouth, Daily, # 30 tablet, Refills 0, Tot. Refills 0, Maintenance, 06/11/21 12:46:00 EDT, Route to Pharmacy Electronically, [facility], Partial fill upon patient request if [...]
--- NOTE | 2022-08-21 19:08 | ED_ITS ---
HPI - Seizure General Chief Complaint: Seizure Stated Complaint: Seizure Time Seen by Provider: 08/21/22 11:12 Source: patient Mode of arrival: ambulatory Limitations: no limitations History of Present Illness HPI Narrative: Patient history of alcohol abuse and alcohol withdrawal seizures epilepsy been drinking heavily lately stop drinking earlier today just prior to arrival had 2 seizures short lasting patient does not remember exactly how long no head injury patient was alone no tongue bite no bleeding history of same in 05/15 when he was admitted for alcohol withdrawal seizures at this time patient feel tired and weak Seizure History: Yes Related Data Previous Rx's Medication Instructions Recorded lorazepam 0.5 mg tablet 0.5 mg PO DAILY PRN agitation 30 11/22/21 days #30 tabs divalproex 250 mg tablet,delayed 500 mg PO BID #270 tabs 12/05/21 release nicotine 21 mg/24 hr daily 21 mg transdermal DAILY #28 ea 03/31/22 transdermal patch pantoprazole 40 mg tablet,delayed 40 mg PO DAILY 90 days #90 tabs 07/07/22 release citalopram 20 mg tablet 20 mg PO DAILY #90 tabs 07/09/22 acamprosate 333 mg tablet,delayed 666 mg PO TID 30 days #180 tabs 08/04/22 release levetiracetam 1,000 mg tablet 1,000 mg PO BID 90 days #180 tabs 08/04/22 (Keppra) lorazepam 2 mg tablet (Ativan) 2 mg PO TID PRN alcohol withdrawal 08/21/22 #14 tabs Allergies Allergy/AdvReac Type Severity Reaction Status Date / Time ibuprofen Allergy Unknown agitation Verified 07/12/21 08:54 No Known Allergies Allergy Verified 07/12/21 08:54 [No Known Allergies*] Review of Systems Review of Systems: Yes all other systems are reviewed and are negative PMFSH Past Medical History Medical History Anxiety and depression Bipolar 1 disorder Generalized seizure GERD (gastroesophageal reflux disease) History of benign brain tumor Obesity (BMI 30-39.9) Seizure disorder Tobacco abuse Surgical History H/O brain surgery Family History Family History Other No family history of coronary artery disease Social History Social History Household Members: Other Housing: Apartment Do you presently have visiting nurse or other home services: No Alcohol intake: current Alcohol intake frequency: a few times a month Patient Tobacco Use Status: Current everyday Tobacco user Tobacco use type: Cigarette Cigarette Packs Per Day: 0.5 e-Cigarette/Vaping Use: Never Used Second Hand Smoke Exposure: Yes Advance Directives: No Advance Directives Information Provided: No service: No Current occupational status: unemployed Physical Exam Vital Signs: Vital Signs: Last Vital Signs Temp 98.1 F 08/21/22 21:31 Pulse 83 08/21/22 21:31 Resp 18 08/21/22 21:31 BP 147/88 H 08/21/22 21:31 Pulse Ox 98 08/21/22 21:31 O2 Del Method 08/21/22 21:31 BMI result Body Mass Index 32.3 Appearance: Alert. Oriented X3. No acute distress. Eyes: PERRLA, No Nystagmus HEENT: Pharynx normal. Oral Mucosa moist atraumatic normocephalic Neck: Normal inspection. Neck supple. CVS: Normal heart rate and rhythm. Pulses normal. Respiratory: No respiratory distress. Equal air entry bilateral, no wheezing/rales/rhonchi Abdomen: Soft and nontender. Bowel sounds are present, no mass palpable, no CVA tenderness Skin: Skin warm and dry. Normal skin color. Normal skin turgor. Extremities: No lower extremity edema. No calf tenderness Neuro: Oriented X 3. No motor deficit. No sensory deficit.No cerebellar signs , cranial nerves II-XII intact MDM - Seizure MDM Narrative Medical decision making narrative: Patient alcoholic with history of epilepsy and alcohol withdrawal seizures on Keppra and Depakote with your patient was given extra dose of Keppra and Depakote for the seizure he had after he decrease amount of alcohol. During stay in the ER patient slept well no signs of withdrawal will discharge patient home on Ativan 2 mg tablets advised to follow-up with detox Differential Diagnosis Differential diagnosis: Likely generalized seizure Medical Records Attestation: I reviewed the patient's medical records. Lab Data Attestation: I reviewed the patient's lab results. Result diagrams: 08/21/22 06:23 08/21/22 06:23 Labs: Lab Results 08/21/22 08/21/22 Range/Units 06:23 06:23 WBC 7.2 (4.8-10.8) X10*3/uL RBC 4.74 (4.60-5.80) X10*6/uL Hgb 14.6 (14.0-18.0) g/dl Hct 41.7 L (42.0-52.0) % MCV 88.0 (80.0-98.0) fL MCH 30.8 (27.0-33.0) pg MCHC 35.0 (31.0-36.0) g/dl RDW 12.5 (11.0-16.0) % Plt Count 314 (160-400) X10*3/uL MPV 9.3 L (9.4-12.4) fL Immature Gran % (Auto) 0.4 (0.0-0.4) % Neut % (Auto) 45.6 (45-73) % Lymph % (Auto) 45.6 H (20-40) % [place] % (Auto) 7.2 (2-11) % Eos % (Auto) 0.4 (0-4) % Baso % (Auto) 0.8 (0-2) % Lymph # (Auto) 3.3 (1.2-4.9) X10*3/uL [place] # (Auto) 0.5 (0.1-1.2) X10*3/uL Eos # (Auto) 0.0 (0.0-0.4) X10*3/uL Baso # (Auto) 0.1 (0.0-0.2) X10*3/uL Abs Immat Gran (auto) 0.03 (0.00-0.03) X10*3/uL Absolute Neuts (auto) 3.3 (2.0-8.3) x10*3/uL Absolute Nucleated RBC 0.000 (0.0-0.012) X10*3/uL Nucleated RBC % (auto) 0.0 (0.0-0.2) /100WBC Sodium 144 (135-145) mmol/L Potassium 3.6 (3.3-5.1) mmol/L Chloride 106 (96-108) mmol/L Carbon Dioxide 25 (22-29) mmol/L Anion Gap 17 (12-20) BUN 10 (9-16) mg/dL Creatinine 1.10 (0.5-1.4) mg/dL Estim Creat Clear Calc 111.1 Estimated GFR > 60 Random Glucose 125 H D (60-115) mg/dL Calcium 8.9 (8.4-10.2) mg/dL Total Bilirubin 0.3 (0.0-1.0) mg/dL AST 25 (5-37) U/L ALT 32 (0-40) U/L Alkaline Phosphatase 54 (39-117) U/L Total Protein 6.9 (6.5-8.0) g/dL Albumin 4.0 (3.5-5.0) g/dL Discharge Plan Discharge Clinical Impression: Seizure disorder, Alcohol abuse Patient Disposition: Home, Self-Care Instructions: Abuse of Alcohol (ED), Recurrent Seizures in Adults (ED) Additional Instructions: Drink plenty of fluids Stop alcohol use Continue new seizure medications Take lorazepam tablets every 6 hours as needed for alcohol withdrawal Prescriptions: New lorazepam [Ativan] 2 mg tablet 2 mg PO TID PRN (Reason: alcohol withdrawal) Qty: 14 0RF No Action lorazepam 0.5 mg tablet 0.5 mg PO DAILY PRN (Reason: agitation) 30 Days Qty: 30 2RF divalproex 250 mg tablet,delayed release (DR/EC) 500 mg PO BID Qty: 270 3RF pantoprazole 40 mg tablet,delayed release (DR/EC) 40 mg PO DAILY 90 Days Qty: 90 0RF citalopram 20 mg tablet 20 mg PO DAILY Qty: 90 0RF acamprosate 333 mg tablet,delayed release (DR/EC) 666 mg PO TID 30 Days Qty: 180 0RF levetiracetam [Keppra] 1,000 mg tablet 1,000 mg PO BID 90 Days Qty: 180 1RF nicotine 21 mg/24 hr Patch 24 Hour 21 mg transdermal DAILY Qty: 28 0RF
[2022-08-21] MEDS: LORazepam 1 MG TABLET 2 MG PO (19:28)
[2022-08-21] MEDS: levETIRAcetam in NaCl (iso-os) 1,000 MG/100 ML PIGGYBACK 400 MG IV (19:28)
[2022-08-21] MEDS: 0.9 % Sodium Chloride 1,000 ML 999 ML IV (19:28)
[2022-08-21] MEDS: Divalproex Sodium 500 MG TABLET.DR 1000 MG PO (19:28)
[2022-08-21 20:00] VITALS: BP 132/79; PULSE 87; RESP 18; TEMP 36.4; O2SAT 95
[2022-08-21 21:31] VITALS: BP 147/88; PULSE 83; RESP 18; TEMP 36.7; O2SAT 98
== END 2022-08-22 00:20 | disposition home or self-care (01) ==
PROVIDERS: Emergency Provider Internal Medicine; PCP Internal Medicine
DX: G40.909 Epilepsy, unspecified, not intractable, without status epilepticus (principal); F10.10 Alcohol abuse, uncomplicated; Y90.9 Presence of alcohol in blood, level not specified; F17.210 Nicotine dependence, cigarettes, uncomplicated; E66.9 Obesity, unspecified; Z68.32 Body mass index [BMI] 32.0-32.9, adult; Z79.899 Other long term (current) drug therapy
CPT/HCPCS: 36415; 80053; 85025; 96361; 96374; 99283; 99284; J1953

== ENCOUNTER 2023-05-28 23:43 | Emergency (ER) | payer OTHER, SELFPAY ==
[2023-05-28 23:46] VITALS: BP 124/80; BP 156/70; PULSE 114; RESP 20; TEMP 37; O2SAT 92; O2SAT 94; BMI 32.0
--- NOTE | 2023-05-28 23:50 | PC.NURSE ---
this rn assumed care of pt from ems. dr haynes made aware of pt status md to bedside for assessment. pt belongings secured and placed into locker 7. pt placed on nuclear monitoring technician. iv line placed 20g in R AC. pt medicated according to jan.
[2023-05-29] VITALS (11 sets, daily range): BP systolic 100–132; BP diastolic 61–81; PULSE 77–106; RESP 14–28; TEMP 36.3–37.2; O2SAT 88–98
--- NOTE | 2023-05-29 00:04 | ED.ALCOHOL ---
HPI - Alcohol General Chief Complaint: ETOH/Substance Use Stated Complaint: etoh Time Seen by Provider: 05/29/23 00:02 Source: patient Mode of arrival: EMS Limitations: no limitations History of Present Illness HPI narrative: Patient's history of alcohol abuse and alcohol withdrawal seizures, epilepsy on Keppra and Depakote been drinking heavily lately wanted to stop had a seizure earlier today has not missed his medications had 3 24 oz beer today usually drinks more than that denies any SI or HI or depression no history of DTs no visual hallucination no delirium patient did have a benign brain tumor ? Meningioma status post craniotomy about 8 years ago since then having the seizure Related Data Previous Rx's Medication Instructions Recorded nicotine 21 mg/24 hr daily 21 mg transdermal DAILY #28 ea 03/31/22 transdermal patch acamprosate 333 mg tablet,delayed 666 mg PO TID #180 tabs 10/06/22 release citalopram 20 mg tablet 20 mg PO DAILY #90 tabs 01/30/23 divalproex 250 mg tablet,delayed 500 mg PO BID #270 tabs 04/11/23 release levetiracetam 1,000 mg tablet 1,000 mg PO BID 90 days #180 tabs 04/24/23 (Keppra) pantoprazole 40 mg tablet,delayed 40 mg PO DAILY 90 days #90 tabs 05/17/23 release Allergies Allergy/AdvReac Type Severity Reaction Status Date / Time No Known Allergies Allergy Verified 05/13/23 13:59 [No Known Allergies*] Review of Systems Review of Systems: Yes all other systems are reviewed and are negative PMFSH Past Medical History Medical History Anxiety and depression Bipolar 1 disorder Generalized seizure GERD (gastroesophageal reflux disease) History of benign brain tumor Obesity (BMI 30-39.9) Seizure disorder Tobacco abuse Surgical History H/O brain surgery Family History Family History Other No family history of coronary artery disease Substance use disorder Social History Social History Household Members: Other Housing: Apartment Do you presently have visiting nurse or other home services: No Alcohol intake: current Alcohol intake frequency: 3 or more drinks per day Patient Tobacco Use Status: Current everyday Tobacco user Tobacco use type: Cigarette Cigarette Packs Per Day: 0.5 Cigarettes Per Day: 10 Smoked in Last 30 Days: No e-Cigarette/Vaping Use: Never Used Second Hand Smoke Exposure: Yes Use of substances other than those prescribed or required for medical reasons: Yes Substance Use Type: Crack/Cocaine Advance Directives: No Advance Directives Information Provided: No service: No Current occupational status: unemployed Cognitive needs: No Hearing needs: No Vision needs: No Physical Exam ED Vital Signs: Vital Signs - 24 hr 05/28/23 23:46 05/29/23 02:04 05/29/23 03:53 Temperature 98.6 F 98.5 F 97.4 F Pulse Rate 114 H 106 H 98 Respiratory Rate 20 28 H 22 H Blood Pressure 124/80 111/62 111/67 Pulse Oximetry 92 92 96 Oxygen Delivery Method Room Air Nasal Cannula Nasal Cannula Oxygen Flow Rate 2 2 05/29/23 05:43 05/29/23 01:00 05/29/23 06:52 Temperature 97.7 F Pulse Rate 90 81 Respiratory Rate 21 H 16 Blood Pressure 110/64 Pulse Oximetry 98 88 L Oxygen Delivery Method Nasal Cannula Room Air Oxygen Flow Rate 2 BMI result Body Mass Index 32.0 Appearance: Alert. Oriented X3. No acute distress. etoh++ Eyes: PERRLA, No Nystagmus ENT: Pharynx normal. Oral Mucosa moist Neck: Normal inspection. Neck supple. CVS: Tachycardia, regular rate and rhythm, no murmur , Pulses normal. Respiratory: No respiratory distress. Equal air entry bilateral, no wheezing/rales/rhonchi Abdomen: Soft and nontender. Bowel sounds are present, no mass palpable, no CVA tenderness Skin: Skin warm and dry. Normal skin color. Normal skin turgor. Extremities: No lower extremity edema. No calf tenderness Neuro: Oriented X 3. No motor deficit. No sensory deficit.No cerebellar signs , cranial nerves II-XII intact Medical Decision Making Medical Decision Making MDM Narrative: Patient alcoholic would like to go to detox. During stay in the ER patient noticed decreased pulse ox to 88% at room air patient denied any chest pain or cough no history of sleep apnea chest x-ray negative for any infiltrate . While awake patient's saturation improves possible the patient might have sleep apnea be give DuoNeb treatment re-evaluate 705 am patient awake alert having breakfast saturating 96% at room air will get care team involved for detox placement Lab Data MDM Lab Attestation statement: I reviewed the patient's lab results. 05/29/23 00:19 05/29/23 00:19 Labs: Lab Results 05/29/23 05/29/23 05/29/23 Range/Units 00:19 00:19 00:19 WBC 8.5 (4.8-10.8) X10*3/uL RBC 5.09 (4.60-5.80) X10*6/uL Hgb 15.4 (14.0-18.0) g/dl Hct 43.1 (42.0-52.0) % MCV 84.7 (80.0-98.0) fL MCH 30.3 (27.0-33.0) pg MCHC 35.7 (31.0-36.0) g/dl RDW 12.0 (11.0-16.0) % Plt Count 333 (160-400) X10*3/uL MPV 8.9 L (9.4-12.4) fL Immature Gran % (Auto) 0.4 (0.0-0.4) % Neut % (Auto) 54.2 (45-73) % Lymph % (Auto) 35.9 (20-40) % [place] % (Auto) 8.6 (2-11) % Eos % (Auto) 0.2 (0-4) % Baso % (Auto) 0.7 (0-2) % Lymph # (Auto) 3.1 (1.2-4.9) X10*3/uL [place] # (Auto) 0.7 (0.1-1.2) X10*3/uL Eos # (Auto) 0.0 (0.0-0.4) X10*3/uL Baso # (Auto) 0.1 (0.0-0.2) X10*3/uL Abs Immat Gran (auto) 0.03 (0.00-0.03) X10*3/uL Absolute Neuts (auto) 4.6 (2.0-8.3) x10*3/uL Absolute Nucleated RBC 0.000 (0.0-0.012) X10*3/uL Nucleated RBC % (auto) 0.0 (0.0-0.2) /100WBC Sodium 142 (135-145) mmol/L Potassium 3.4 (3.3-5.1) mmol/L Chloride 103 (96-108) mmol/L Carbon Dioxide 25 (22-29) mmol/L Anion Gap 17 (12-20) BUN 11 (9-16) mg/dL Creatinine 1.01 (0.5-1.4) mg/dL Estim Creat Clear Calc 119.3 Estimated GFR > 60 Random Glucose 134 H (60-115) mg/dL Calcium 9.3 (8.4-10.2) mg/dL Magnesium 2.0 (1.6-2.6) mg/dL Total Bilirubin 0.3 (0.0-1.0) mg/dL AST 30 (5-37) U/L ALT 32 (0-40) U/L Alkaline Phosphatase 59 (39-117) U/L Total Protein 6.6 (6.5-8.0) g/dL Albumin 3.5 (3.5-5.0) g/dL Urine Color Urine Appearance Urine pH (5.0-9.0) Ur Specific [place] (1.005-1.025) Urine Protein (Neg-Trace) mg/dL Urine Glucose (UA) (Negative) mg/dL Urine Ketones (Negative) mg/dL Urine Blood (Negative) Urine Nitrite (Negative) Ur Leukocyte Esterase (Negative) Urine Opiates Screen (Not Detect) Urine Fentanyl Screen (Not Detect) Ur Barbiturates Screen (Not Detect) Ur Phencyclidine Scrn (Not Detect) Ur Amphetamines Screen (Not Detect) U Benzodiazepines Scrn (Not Detect) Urine Cocaine Screen (Not Detect) U Marijuana (THC) Screen (Not Detect) Ethyl Alcohol 255 mg/dL COVID-19 ([facility]) Negative (Negative) COVID-19 Clin Com See Note 05/29/23 05/29/23 Range/Units 03:24 03:24 WBC (4.8-10.8) X10*3/uL RBC (4.60-5.80) X10*6/uL Hgb (14.0-18.0) g/dl Hct (42.0-52.0) % MCV (80.0-98.0) fL MCH (27.0-33.0) pg MCHC (31.0-36.0) g/dl RDW (11.0-16.0) % Plt Count (160-400) X10*3/uL MPV (9.4-12.4) fL Immature Gran % (Auto) (0.0-0.4) % Neut % (Auto) (45-73) % Lymph % (Auto) (20-40) % [place] % (Auto) (2-11) % Eos % (Auto) (0-4) % Baso % (Auto) (0-2) % Lymph # (Auto) (1.2-4.9) X10*3/uL [place] # (Auto) (0.1-1.2) X10*3/uL Eos # (Auto) (0.0-0.4) X10*3/uL Baso # (Auto) (0.0-0.2) X10*3/uL Abs Immat Gran (auto) (0.00-0.03) X10*3/uL Absolute Neuts (auto) (2.0-8.3) x10*3/uL Absolute Nucleated RBC (0.0-0.012) X10*3/uL Nucleated RBC % (auto) (0.0-0.2) /100WBC Sodium (135-145) mmol/L Potassium (3.3-5.1) mmol/L Chloride (96-108) mmol/L Carbon Dioxide (22-29) mmol/L Anion Gap (12-20) BUN (9-16) mg/dL Creatinine (0.5-1.4) mg/dL Estim Creat Clear Calc Estimated GFR Random Glucose (60-115) mg/dL Calcium (8.4-10.2) mg/dL Magnesium (1.6-2.6) mg/dL Total Bilirubin (0.0-1.0) mg/dL AST (5-37) U/L ALT (0-40) U/L Alkaline Phosphatase (39-117) U/L Total Protein (6.5-8.0) g/dL Albumin (3.5-5.0) g/dL Urine Color Yellow Urine Appearance Clear Urine pH 6.0 (5.0-9.0) Ur Specific [place] 1.015 (1.005-1.025) Urine Protein Negative (Neg-Trace) mg/dL Urine Glucose (UA) Negative (Negative) mg/dL Urine Ketones Trace (Negative) mg/dL Urine Blood Negative (Negative) Urine Nitrite Negative (Negative) Ur Leukocyte Esterase Negative (Negative) Urine Opiates Screen Not Detected (Not Detect) Urine Fentanyl Screen Not Detected (Not Detect) Ur Barbiturates Screen Not Detected (Not Detect) Ur Phencyclidine Scrn Not Detected (Not Detect) Ur Amphetamines Screen Not Detected (Not Detect) U Benzodiazepines Scrn Not Detected (Not Detect) Urine Cocaine Screen Not Detected (Not Detect) U Marijuana (THC) Screen Not Detected (Not Detect) Ethyl Alcohol mg/dL COVID-19 ([facility]) (Negative) COVID-19 Clin Com Medications Administered Discontinued Medications Generic Name Dose Route Start Last Admin Trade Name Freq PRN Reason Stop Dose Admin Albuterol Sulfate 2.5 mg/ 0 mg 05/29/23 06:24 05/29/23 06:50 Albuterol/Ipratropium 3 ml INHALE 05/29/23 06:25 1 each ONCE ONE Administration Sodium Chloride 1,000 mls @ 999 mls/hr 05/29/23 00:04 05/29/23 02:34 Ns IV 05/29/23 01:04 Infused .Q1H1M ONE Infusion Sodium Chloride 1,000 mls @ 999 mls/hr 05/29/23 02:33 05/29/23 05:30 Ns IV 05/29/23 03:33 Infused .Q1H1M ONE Infusion Levetiracetam 1,000 mg 05/29/23 00:13 05/29/23 00:21 Levetiracetam 1,000 Mg Tablet PO 05/29/23 00:14 1,000 mg ONCE ONE Administration Lorazepam 2 mg 05/29/23 00:05 05/29/23 00:16 Lorazepam 2 Mg/Ml Vial IVPUSH 05/29/23 00:06 2 mg ONCE ONE Administration Discharge Plan Discharge Clinical Impression: Alcohol withdrawal syndrome Patient Disposition: Still a Patient Prescriptions: No Action acamprosate 333 mg tablet,delayed release (DR/EC) 666 mg PO TID Qty: 180 0RF citalopram 20 mg tablet 20 mg PO DAILY Qty: 90 1RF levetiracetam [Keppra] 1,000 mg tablet 1,000 mg PO BID 90 Days Qty: 180 1RF pantoprazole 40 mg tablet,delayed release (DR/EC) 40 mg PO DAILY 90 Days Qty: 90 0RF nicotine 21 mg/24 hr Patch 24 Hour 21 mg transdermal DAILY Qty: 28 0RF divalproex 250 mg tablet,delayed release (DR/EC) 500 mg PO BID Qty: 270 3RF
--- NOTE | 2023-05-29 00:22 | MHC.EDTECH ---
Pt arrived by ambulance, was changed into hospital attire. Security at bedside belongings list done, VS taken pt placed on cardiac specialist EKG and labs obtained. Seizure pads applied and call andrews within reach.
[2023-05-29 00:43] LABS: Alanine Aminotransferase 32 U/L (0-40); Albumin Level 3.5 g/dL (3.5-5.0); Alkaline Phosphatase 59 U/L (39-117); Anion Gap 17 (12-20); Aspartate Amino Transferase 30 U/L (5-37); Bilirubin Total 0.3 mg/dL (0.0-1.0); Blood Urea Nitrogen 11 mg/dL (9-16); Calcium 9.3 mg/dL (8.4-10.2); Carbon Dioxide 25 mmol/L (22-29); Chloride 103 mmol/L (96-108); Creatinine Clr Calc Pharmacy 119.3; Estimated Glomerular Filt Rate > 60; Ethanol 255 mg/dL; Glucose Random 134 mg/dL (60-115); Potassium 3.4 mmol/L (3.3-5.1); Sodium 142 mmol/L (135-145); Total Protein 6.6 g/dL (6.5-8.0)
--- NOTE | 2023-05-29 01:00 | PC.NURSE ---
pt desatted to 88% room air. dr haynes made aware pt placed on 2LPM NC. spo2 96% on 2LPM
[2023-05-29 03:30] LABS: Appearance Urine Clear; Color Urine Yellow; Glucose Urine UA Negative (Negative); Leukocyte Esterase Urine Negative (Negative); Nitrite Urine Negative (Negative); Specific Gravity - Urine 1.015 (1.005-1.025); Urine Blood Negative (Negative); Urine Ketones Trace mg/dL (Negative); Urine Protein Negative (Neg-Trace)
--- NOTE | 2023-05-29 03:40 | PC.NURSE ---
late entry- pt ambulatory to restroom with standby assist of this rn and hedis manager. pt calm and cooperative. pt replaced back to bed. urine sample sent down to lab
[2023-05-29 03:59] LABS: Amphetamine Screen Urine Not Detected (Not Detect); Barbiturates, Urine Not Detected (Not Detect); Benzodiazepines Screen Urine Not Detected (Not Detect); Cannabinoid Screen Urine Not Detected (Not Detect); Cocaine Screen Urine Not Detected (Not Detect); Fentanyl, urine Not Detected (Not Detect); Opiate Screen Urine Not Detected (Not Detect); Phencyclidine Screen Urine Not Detected (Not Detect)
--- NOTE | 2023-05-29 06:04 | PC.NURSE ---
med rec completed by this rn
--- NOTE | 2023-05-29 07:55 | PC.NURSE ---
assumed care at 0700. pt sleeping at the time of assumed care, denies pain. vss, breakfast given.
--- NOTE | 2023-05-29 09:05 | PC.NURSE ---
pt A&O x3, vss, CIWA: one, denies VH and AH, pt resting quietly, fitness coach at bedside.
--- NOTE | 2023-05-29 13:35 | MHC.RECOVRN ---
This screen writer met with patient, patient difficult to engage, reports not feeling well. Pt reports drinking 3, 24oz beers daily for past week. Pt interetesed in ATS bedsearch, once medically cleared. ED Provider states pt now off O2, pt ate breakfast, ambulated to the bathroom, resting comfortably, at this time pt medically cleared. ATS referral sent to Edil Elder for review.
--- NOTE | 2023-05-29 15:40 | MHC.RECOVSUP ---
Pt accepted to [facility] for 8pm admission.
--- NOTE | 2023-05-29 16:31 | PC.NURSE ---
pt seen by defensive secondary coach, per defensive secondary coach pt will be going to [facility] around 8pm via [facility]. Pt aware of plan of care.
--- NOTE | 2023-05-29 16:54 | PC.NURSE ---
per Rashard from recovery a [facility] will be here around 1920 for transport to [facility].
== END 2023-05-29 22:35 | disposition other institution (70) ==
PROVIDERS: Emergency Provider Internal Medicine; PCP Internal Medicine
DX: F10.130 Alcohol abuse with withdrawal, uncomplicated (principal); F10.120 Alcohol abuse with intoxication, uncomplicated; Y90.8 Blood alcohol level of 240 mg/100 ml or more; Z20.822 Contact with and (suspected) exposure to COVID-19; F17.210 Nicotine dependence, cigarettes, uncomplicated; F41.9 Anxiety disorder, unspecified; G40.909 Epilepsy, unspecified, not intractable, without status epilepticus; F31.9 Bipolar disorder, unspecified; E66.9 Obesity, unspecified; Z68.32 Body mass index [BMI] 32.0-32.9, adult; Z79.899 Other long term (current) drug therapy
CPT/HCPCS: 36415; 71045; 80053; 80307; 81003; 83735; 85025; 87635; 93005; 94640; 96361; 96374; 99285; J2060

== ENCOUNTER 2023-06-23 16:54 | Outpatient (AMB) | payer OTHER, SELFPAY ==
[2023-06-23 16:58] VITALS: BP 114/70; PULSE 90; O2SAT 97; BMI 31.1
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
== END 2023-06-23 17:55 | disposition home or self-care (01) ==
PROVIDERS: PCP Internal Medicine; Visit Provider Internal Medicine
DX: K21.9 Gastro-esophageal reflux disease without esophagitis (principal); G40.909 Epilepsy, unspecified, not intractable, without status epilepticus; E66.9 Obesity, unspecified; Z68.31 Body mass index [BMI] 31.0-31.9, adult; F10.10 Alcohol abuse, uncomplicated; Z72.0 Tobacco use; M54.50 Low back pain, unspecified
CPT/HCPCS: 99214

== ENCOUNTER 2023-07-04 13:00 | Outpatient (REF) | payer OTHER, SELFPAY ==
--- NOTE | ~2023-07-04 | XR_ITS ---
EXAMINATION: XR LUMBOSACRAL SPINE CLINICAL INFORMATION: Low back pain COMPARISON: CT scan from May 2017 and MRI from November 2016 TECHNIQUE: Three views of the lumbosacral spine. FINDINGS: There is straightening of lumbar lordosis with narrowing of L4-L5 intervertebral disc space unchanged significantly since previous examination of 2017 no evidence of spondylolysis or listhesis. Pedicles are preserved.. XR/XR lumbar spine 2-3V IMPRESSION: Degenerative changes at the level of L4-L5 with narrowing of disc space.
== END 2023-07-04 13:01 | disposition home or self-care (01) ==
LOC: HO.XRAY 13:00
PROVIDERS: PCP Internal Medicine; Visit Provider Internal Medicine
DX: M54.50 Low back pain, unspecified (principal)
CPT/HCPCS: 72100

== ENCOUNTER 2023-08-14 07:24 | Outpatient (AMB) | payer OTHER, SELFPAY ==
[2023-08-14 07:27] VITALS: BP 116/62; PULSE 89; O2SAT 98; BMI 31.6
--- NOTE | 2023-08-14 07:27 | A.OFFPC_ITS ---
Vital Signs 08/14/23 07:27 Height 5 ft 10 in Weight 220 lb BMI 31.6 BP 116/62 Blood Pressure Location Lt brachial Position Sitting Pulse 89 Pulse Source Pulse Oximeter Pulse Oximetry (%) 98 Oxygen Delivery Method Room Air Intake Visit Reasons: Back Pain Allergies No Known Allergies [No Known Allergies*] Allergy (Verified 08/14/23 07:29) Tobacco use date assessed: 05/13/23 Dental Screening Dental Screen Date: 08/14/23 Did you have a dental visit in the last 12 months?: No Did you have a dental problem in the last 6 months where you did not have access to dental care?: No Was dental information given to patient?: No HPI HPI Comments History of Present Illness Details 38-year-old male past medical history si gnificant for seizures, anxiety, depression, GERD and right-sided sciatica. Patient last seen in May. Patient presents today for Follow up for his low back pain. 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 Patient presents today stating that low back pain is feeling much better currently on meloxicam 50 mg daily with good effect denies any lumbar radiculopathy symptoms. Patient requesting a work note to return to work. Work note given. Patient educated on good body mechanics. Patient also reports has not yet been contacted by physical therapy, will re-enter referral. [facility] Medical History Anxiety and depression Bipolar 1 disorder Generalized seizure GERD (gastroesophageal reflux disease) History of benign brain tumor Obesity (BMI 30-39.9) Seizure disorder Tobacco abuse Surgical History H/O brain surgery Family History Other No family history of coronary artery disease Substance use disorder Social History Household Members: Other Housing: Apartment Do you presently have visiting nurse or other home services: No Alcohol intake: current Alcohol intake frequency: 3 or more drinks per day Patient Tobacco Use Status: Current everyday Tobacco user Tobacco use type: Cigarette Cigarette Packs Per Day: 0.5 Cigarettes Per Day: 10 e-Cigarette/Vaping Use: Never Used Second Hand Smoke Exposure: Yes Substance Use Type: Crack/Cocaine service: No Current occupational status: unemployed Cognitive needs: No Hearing needs: No Vision needs: No Questionnaire PHQ-9 Over the last 2 weeks, how often have you been bothered by any of the following problems? 1. Little interest or pleasure in doing things: not at all 2. Feeling down, depressed, or hopeless: not at all 3. Trouble falling or staying asleep, or sleeping too much: not at all 4. Feeling tired or having little energy: not at all 5. Poor appetite or overeating: not at all 6. Feeling bad about yourself - or that you are a failure or have let yourself or your family down: not at all 7. Trouble concentrating on things, such as reading the newspaper or watching television: not at all 8. Moving or speaking so slowly that other people could have noticed. Or the opposite - being so fidgety or restless that you have been moving around a lot more than usual: not at all 9. Thoughts that you would be better off or of hurting yourself in some way: not at all Total score: 0 Depression Screening Interpretation: Negative Source: Developed by Drs. Shade Clark, Paty Bernard, Joshua Henriquez and colleagues, with an educational maria elena from [employer]. Thrive Questionnaire Date Thrive assessed: 04/11/23 AUDIT C Alcohol Use Questionnaire (AUDIT-C) 1. How often do you have a drink containing alcohol?: Never 2. How many drinks containing alcohol do you have on a typical day when you are drinking?: 1 or 2 Total Score: 0 SARANYA-7 AMB Questionnaire SARANYA-7 Date SARANYA - 7 assessed: 04/11/23 Source: Developed by Drs. Sahde Clark, Paty Bernard, Joshua Henriquez and colleagues, with an educational maria elena from [employer]. Review of Systems Const Denies chills, Denies fatigue, Denies fever(s) and Denies poor appetite Eyes Denies no additional complaints ENT Reports Normal hearing present Card Denies chest pain, Denies syncope, Denies rapid heart rate and Denies dyspnea Resp Denies cough and Denies dyspnea GI Denies change in stool character, Denies constipation, Denies diarrhea, Denies nausea and Denies vomiting Denies dysuria, Denies urinary frequency and Denies urinary urgency Neuro Reports Normal hearing present, Denies confusion and Denies syncope Psych Denies confusion Endo Denies fatigue Physical exam (Primary Care) Vital Signs: Last Vital Signs Pulse 89 08/14/23 07:27 BP 116/62 08/14/23 07:27 Pulse Ox 98 08/14/23 07:27 Oxygen Delivery Method Room Air 08/14/23 07:27 BMI result Body Mass Index 31.6 Tobacco/Smoking Status: Tobacco use Status Tobacco use date assessed 05/13/23 08/14/23 07:33 Patient Tobacco Use Status Current everyday Tobacco 08/14/23 07:33 Tobacco use type Cigarette 08/14/23 07:33 e-Cigarette/Vaping Use Never Used 08/14/23 07:33 PHQ-9: PHQ-9 Score PHQ-9: Total score 0 08/14/23 07:40 Depression Screening Interpretation: Negative Thrive Assessment: Date of Thrive Assessment Date Thrive assessed 04/11/23 08/14/23 07:33 Const General: No confusion Orientation/consciousness: No confusion HENMT Head: Yes normocephalic and Yes atraumatic Eyes Conjunctivae: conjunctivae normal Chest Chest palpation & inspection: normal inspection of the chest Resp Effort & Inspection: normal respiratory effort Auscultation: clear to auscultation bilaterally, no crackles, no rhonchi and no wheezes Cardio Rate: regular rate Rhythm: regular rhythm Heart sounds: S1 normal heart sound present and S2 normal heart sound present GI Inspection: Yes normal to inspection Back/Spine/Pelvis Thoracic/Lumbar Spine: thoracic and lumbar spine normal to inspection, No thoracic spinal tenderness and No lumbar spinal tenderness Pelvis: no sciatic notch tenderness Neuro General: No confusion Cranial nerves: Yes Normal hearing present Extrem General: No edema Assessment and Plan Assessment & Plan (1) Right sided sciatica: Code(s): M54.31 - Sciatica, right side (2) Low back pain: Code(s): M54.5 - Low back pain Plan: Continue on meloxicam 15 mg daily. New referral placed to physical therapy. Patient requesting note to return to work as he reports his back pain is feeling much better and denies any right-sided sciatica pain, work note given. (3) Seizure disorder: Code(s): G40.909 - Epilepsy, unspecified, not intractable, without status epilepticus Plan: Continue on Keppra and divalproex (4) Anxiety and depression: Code(s): F41.9 - Anxiety disorder, unspecified; F32.9 - Major depressive disorder, single episode, unspecified Plan: Continue on Citalopram 20mg daily. Plan Keep scheduled follow up with pcp. Orders: Orders PT Evaluation and Treatment Today M54.5 - Low back pain Coding Level of Care Code Est Pt Level 3 (22693) Diagnoses Right sided sciatica M54.31 Low back pain M54.5 Seizure disorder G40.909 Anxiety and depression F41.9; F32.9
== END 2023-08-14 09:22 | disposition home or self-care (01) ==
PROVIDERS: PCP Internal Medicine; Visit Provider Nurse Practitioner Family
DX: G40.909 Epilepsy, unspecified, not intractable, without status epilepticus (principal); F41.9 Anxiety disorder, unspecified; F32.9 Major depressive disorder, single episode, unspecified; M54.31 Sciatica, right side; M54.50 Low back pain, unspecified
CPT/HCPCS: 99213

== ENCOUNTER 2023-08-17 10:48 | Inpatient (IN) | payer OTHER, SELFPAY ==
--- NOTE | ~2023-08-17 | CT_ITS ---
EXAMINATION: CT CERVICAL SPINE WITHOUT CONTRAST CLINICAL INFORMATION: Seizure. Fall. COMPARISON: None available. TECHNIQUE: CT of the head and cervical spine were performed without intravenous contrast. Multiplanar reformats were rendered and reviewed. This CT examination was performed using dose optimization techniques as appropriate, variously including the following: *Automated exposure control *Adjustment of mA and/or kV according to patient size (this includes techniques or standardized protocols for targeted exams where dose is matched to indication/reason for exam; i.e. extremities or head) *Use of iterative reconstruction technique DLP: 2436 mGy-cm FINDINGS: Limited by motion artifact. The vertebral body heights appear maintained. No gross cervical spine fracture is seen. The cervical alignment appears normal. The paraspinal soft tissues appear within normal limits. The partially imaged lung apices appear clear. Left maxillary sinus mucosal thickening, partially imaged. Craniotomy projecting over the frontotemporal region on tomographic lateral view. CT/CT cervical spine wo IV con IMPRESSION: Limited by motion artifact. No gross cervical spine fracture or traumatic malalignment identified.
--- NOTE | ~2023-08-17 | CT_ITS ---
CT head/brain wo IV con, CT facial bones wo IV con CLINICAL INFORMATION: Reason for Exam Seizure, fall, head injury, face injury COMPARISON: No prior CT scan available for comparison. TECHNIQUE: Department standard protocol. This CT examination was performed using dose optimization techniques as appropriate, variously including the following: *Automated exposure control *Adjustment of mA and/or kV according to patient size (this includes techniques or standardized protocols for targeted exams where dose is matched to indication/reason for exam; i.e. extremities or head) *Use of iterative reconstruction technique DLP: 2436 mGy-cm FINDINGS: CEREBRAL HEMISPHERES: There is a triangular shaped defect in the right parietal lobe, the morphology of which suggest possibly a congenital or related to prior injury. There is adjacent craniotomy lines.. BRAIN PARENCHYMA: Normal gunter-white matter differentiation. SUBDURAL SPACE: No bleed. BASAL GANGLIA AND PINEAL GLAND: Unremarkable VENTRICLES: Symmetric and normal in size. CEREBELLUM AND BRAINSTEM: No space-occupying mass, hemorrhage or acute infarct. CEREBELLOPONTINE ANGLES: No lesion found. ORBITS: No intraorbital mass. VESSELS: Unremarkable SKULL BASE: Unremarkable INCLUDED SINUSES AT SKULL BASE: Clear SKULL AND SKIN: No fracture or bone lesion found. EXAMINATION: CT FACIAL BONES FINDINGS : SKULL BASE: Included structures at skull base are normal. BONES: Skull base, orbital bones, nasal bones, maxillary bones, mandibles, zygomatic arches, and included cervical vertebrae are normal. ORBITS: Globes are symmetric. Orbital structures are normal. SALIVARY GLANDS: Unremarkable SINUSES: There are retention cyst in the floor of the left maxillary sinus. CT/CT facial bones wo IV con IMPRESSION: * No CT evidence of intracranial space-occupying mass, bleed or infarct. * There is a triangular shaped defect in the right parietal lobe, the morphology of which suggest possibly a congenital or related to prior injury. There is adjacent postsurgical craniotomy lines. * Facial bones are intact. * Retention cyst at the floor of the left maxillary sinus.
[2023-08-17 10:54] VITALS: BP 131/86; PULSE 111; RESP 18; TEMP 36.3; O2SAT 94; BMI 29.6
[2023-08-17 11:11] VITALS: BP 124/80; PULSE 98; RESP 18; O2SAT 97
--- NOTE | 2023-08-17 11:13 | PC.NURSE ---
Patient arrived from home after 3 days of heavy drinking. States is concerned about withdrawl symptoms. States hx of epilepsy and had a sezire this morning Reports has had grand mal seizures but this am had a focal seizures and was awake for entire seizure. Reports has not really slept in last few days. Endorses SI without a plan, denies Hi. Reports last drink was around 5am this morning and seizure was around 6am.
--- NOTE | 2023-08-17 11:27 | PC.NURSE ---
seizure precautions initiated, 20g IV started in left AC
--- NOTE | 2023-08-17 11:28 | ECG_ITS ---
Test Reason : CHEST PAIN Blood Pressure : / mmHG Vent. Rate : 095 BPM Atrial Rate : 095 BPM P-R Int : 142 ms QRS Dur : 110 ms QT Int : 366 ms P-R-T Axes : 022 046 027 degrees QTc Int : 459 ms Normal sinus rhythm Normal ECG When compared with ECG of 29-MAY-2023 00:05, No significant change was found Referred By: Daniel Randall Electronically Signed By:COREY RUSHING
--- NOTE | 2023-08-17 11:30 | ED.SEIZURE ---
HPI - Seizure General Chief Complaint: Seizure Stated Complaint: seizure Time Seen by Provider: 08/17/23 11:23 Source: patient Mode of arrival: ambulatory Limitations: no limitations History of Present Illness HPI Narrative: 38-year-old male presents with seizure, alcohol abuse and suicidal ideation regarding his suicidal ideation, patient denies any plan. He has never been admitted for psychiatric reasons. He would like to be evaluated. As far as the seizure, he does not remember specifically. Your does report a significant amount of alcohol intake. Unable to quantify. Last drink was earlier this morning. Typically drinks until he is tired. He denies any additional drug use. Currently denies any headache, nausea, vomiting, fevers, chills. He does report that he has noncompliance to his medications. Reports having difficulty remembering to take his medications. Patient describes symptoms as moderate to severe. There is no clear relieving features. All of his symptoms appear to be worsened by alcohol ingestion Seizure History: Yes Place: Home Related Data Previous Rx's Medication Instructions Recorded nicotine 21 mg/24 hr daily 21 mg transdermal DAILY #28 ea 03/31/22 transdermal patch acamprosate 333 mg tablet,delayed 666 mg (2 x 333 mg) PO TID #180 10/06/22 release tabs citalopram 20 mg tablet 20 mg PO DAILY #90 tabs 01/30/23 divalproex 250 mg tablet,delayed 500 mg (2 x 250 mg) PO BID #270 04/11/23 release tabs levetiracetam 1,000 mg tablet 1,000 mg PO BID 90 days #180 tabs 04/24/23 (Keppra) pantoprazole 40 mg tablet,delayed 40 mg PO DAILY 90 days #90 tabs 05/17/23 release meloxicam 15 mg tablet 15 mg PO DAILY #30 tabs 07/08/23 Allergies Allergy/AdvReac Type Severity Reaction Status Date / Time No Known Allergies Allergy Verified 08/14/23 07:29 [No Known Allergies*] Review of Systems Review of Systems: CONSTITUTIONAL: Denies weight loss, fever and chills. HEENT: Denies changes in vision and hearing. RESPIRATORY: Denies SOB and cough. CV: Denies palpitations no CP. GI: Denies abdominal pain, nausea, vomiting and diarrhea. : Denies dysuria and urinary frequency. MSK: Denies myalgia and joint pain. SKIN: Denies rash and pruritus. NEUROLOGICAL: Denies headache and syncope. PSYCHIATRIC: Positive depression All other ROS are negative unless in HPI PMFSH Past Medical History Medical History History of benign brain tumor Generalized seizure Bipolar 1 disorder Obesity (BMI 30-39.9) Tobacco abuse GERD (gastroesophageal reflux disease) Anxiety and depression Seizure disorder Surgical History H/O brain surgery Family History Family History Other No family history of coronary artery disease Substance use disorder Social History Social History Household Members: Other Housing: Apartment Do you presently have visiting nurse or other home services: No Alcohol intake: current Alcohol intake frequency: 3 or more drinks per day Patient Tobacco Use Status: Current everyday Tobacco user Tobacco use type: Cigarette Cigarette Packs Per Day: 0.5 Cigarettes Per Day: 10 Smoked in Last 30 Days: Yes e-Cigarette/Vaping Use: Never Used Second Hand Smoke Exposure: Yes Use of substances other than those prescribed or required for medical reasons: No Substance Use Type: Crack/Cocaine Advance Directives: No service: No Current occupational status: unemployed Cognitive needs: No Hearing needs: No Vision needs: No Physical Exam Vital Signs: Vital Signs: Last Vital Signs Temp 98.2 F 08/17/23 14:51 Pulse 112 H 08/17/23 14:51 Resp 18 08/17/23 14:51 BP 126/77 08/17/23 14:51 Pulse Ox 96 08/17/23 14:51 O2 Del Method Room Air 08/17/23 14:51 BMI result Body Mass Index 29.6 GEN: Well developed, no acute distress, alert, oriented HEENT: Normocephalic, atraumatic, normal external ears, nose appears normal, no oropharyngeal edema or exudates Eyes: Normal to appearance Neck: Supple, no lymphadenopathy Respiratory: Talks in complete sentences, no respiratory distress, clear to auscultation bilaterally Cardiovascular: Regular rate and rhythm, no murmurs rubs or gallops Abdomen: Soft, nontender, nondistended, no guarding, no rebound Back: No CVA tenderness Extremities: No clubbing cyanosis or edema Neurologic: No focal neurologic deficits, cranial nerves 2-12 intact, strength is 5/5 bilaterally Skin: No rash Course Reevaluation(s) Reevaluation #1: Patient is currently medically clear for psychiatric evaluation. Will place patient physician observation pending care team. Time: 12:48 Reevaluation #2: Patient's care will be transitioned to my colleague. Patient is pending care team evaluation. Time: 16:05 Medical Decision Making Medical Decision Making [facility] Narrative: 38-year-old male presents with seizure, alcohol abuse and depressive symptomatology associated with SI but no plan. At this point, place the patient on one-to-one observation. Will do routine laboratory analysis. I will check a valproic acid level. He also takes Keppra. Patient will likely need loading doses of his medications. Differential diagnosis for symptoms includes alcohol abuse, medication noncompliance, depression, anxiety, PTSD, mood disorder. Plan will be to medically clear the patient, provide him for prophylaxis against seizure and re-evaluate patient. I will also order care team consultation. Differential Diagnosis Differential Diagnoses: The differential diagnosis associated with the presentation includes (See above) Admission/Observation Consideration of admission/observation: Escalation of care including admission/observation considered Lab Data [facility] Lab Attestation statement: I reviewed the patient's lab results. 08/17/23 11:46 08/17/23 11:46 Labs: Lab Results 08/17/23 08/17/23 08/17/23 Range/Units 11:46 11:59 15:04 WBC 12.2 H (4.8-10.8) X10*3/uL RBC 5.05 (4.60-5.80) X10*6/uL Hgb 15.4 (14.0-18.0) g/dl Hct 45.0 (42.0-52.0) % MCV 89.1 (80.0-98.0) fL MCH 30.5 (27.0-33.0) pg MCHC 34.2 (31.0-36.0) g/dl RDW 12.9 (11.0-16.0) % Plt Count 329 (160-400) X10*3/uL MPV 9.1 L (9.4-12.4) fL Immature Gran % (Auto) 0.3 (0.0-0.4) % Neut % (Auto) 62.3 (45-73) % Lymph % (Auto) 28.5 (20-40) % [place] % (Auto) 8.1 (2-11) % Eos % (Auto) 0.2 (0-4) % Baso % (Auto) 0.6 (0-2) % Lymph # (Auto) 3.5 (1.2-4.9) X10*3/uL [place] # (Auto) 1.0 (0.1-1.2) X10*3/uL Eos # (Auto) 0.0 (0.0-0.4) X10*3/uL Baso # (Auto) 0.1 (0.0-0.2) X10*3/uL Abs Immat Gran (auto) 0.04 H (0.00-0.03) X10*3/uL Absolute Neuts (auto) 7.6 (2.0-8.3) x10*3/uL Absolute Nucleated RBC 0.000 (0.0-0.012) X10*3/uL Nucleated RBC % (auto) 0.0 (0.0-0.2) /100WBC Sodium 140 (135-145) mmol/L Potassium 3.8 (3.3-5.1) mmol/L Chloride 102 (96-108) mmol/L Carbon Dioxide 20 L (22-29) mmol/L Anion Gap 22 H (12-20) BUN 11 (9-16) mg/dL Creatinine 1.26 (0.5-1.4) mg/dL Estim Creat Clear Calc 95.0 Estimated GFR > 60 Random Glucose 85 (60-115) mg/dL Calcium 9.0 (8.4-10.2) mg/dL Total Bilirubin 0.5 (0.0-1.0) mg/dL AST 18 (5-37) U/L ALT 18 (0-40) U/L Alkaline Phosphatase 52 (39-117) U/L Total Protein 6.9 (6.5-8.0) g/dL Albumin 4.0 (3.5-5.0) g/dL Urine Color Yellow Urine Appearance Cloudy Urine pH 5.5 (5.0-9.0) Ur Specific [place] >= 1.030 H (1.005-1.025) Urine Protein 30 (1+) H (Neg-Trace) mg/dL Urine Glucose (UA) Negative (Negative) mg/dL Urine Ketones 15 (Negative) mg/dL Urine Blood Negative (Negative) Urine Nitrite Negative (Negative) Ur Leukocyte Esterase Negative (Negative) Urine RBC 0-2 (0-2) /HPF Urine WBC 0-5 (0-5) /HPF Ur Squamous Epith Cells 3-5 (0-2) /HPF Urine Bacteria None Seen (None Seen) Hyaline Casts >20 (0-2) /LPF Granular Casts Present Urine Opiates Screen Not Detected (Not Detect) Urine Fentanyl Screen Not Detected (Not Detect) Ur Barbiturates Screen Not Detected (Not Detect) Valproic Acid 44.2 L (50.0-100.0) mcg/mL Ur Phencyclidine Scrn Not Detected (Not Detect) Ur Amphetamines Screen Not Detected (Not Detect) U Benzodiazepines Scrn Not Detected (Not Detect) Urine Cocaine Screen Not Detected (Not Detect) U Marijuana (THC) Screen Not Detected (Not Detect) Ethyl Alcohol 142 mg/dL COVID-19 ([facility]) Negative (Negative) COVID-19 Clin Com See Note Independent Interpretation I performed an independent interpretation of an: EKG (Normal sinus rhythm heart rate 95, no acute ST elevation depressions, normal intervals) Prescription Management I considered prescription management with: Pain Medication and Antibiotic Chronic Conditions Patient?s care impacted by: Other (Seizure disorder, alcohol abuse) Discharge Plan Discharge Clinical Impression: Alcohol abuse, Seizure disorder, Depressive disorder Patient Disposition: Still a Patient Prescriptions: No Action acamprosate 333 mg tablet,delayed release (DR/EC) 666 mg PO TID Qty: 180 0RF citalopram 20 mg tablet 20 mg PO DAILY Qty: 90 1RF levetiracetam [Keppra] 1,000 mg tablet 1,000 mg PO BID 90 Days Qty: 180 1RF pantoprazole 40 mg tablet,delayed release (DR/EC) 40 mg PO DAILY 90 Days Qty: 90 0RF meloxicam 15 mg tablet 15 mg PO DAILY Qty: 30 0RF nicotine 21 mg/24 hr Patch 24 Hour 21 mg transdermal DAILY Qty: 28 0RF divalproex 250 mg tablet,delayed release (DR/EC) 500 mg PO BID Qty: 270 3RF
--- NOTE | 2023-08-17 11:41 | PC.NURSE ---
belongings secured inPOD locker #11
[2023-08-17 11:53] LABS: Basophils Absolute Auto 0.1 X10*3/uL (0.0-0.2); Basophils Percent Auto 0.6 % (0-2); Eosinophils Percent Auto 0.2 % (0-4); Hemoglobin 15.4 g/dl (14.0-18.0); Imm Gran Abs Auto 0.04 X10*3/uL (0.00-0.03); Imm Gran Pct Auto 0.3 % (0.0-0.4); Lymphocytes Absolute Auto 3.5 X10*3/uL (1.2-4.9); Lymphocytes Percent Auto 28.5 % (20-40); MANUAL DIFF FLAG NO; Mean Corpuscular HGB Conc 34.2 g/dl (31.0-36.0); Mean Corpuscular Hemoglobin 30.5 pg (27.0-33.0); Mean Corpuscular Volume 89.1 fL (80.0-98.0); Mean Platelet Volume 9.1 fL (9.4-12.4); Monocytes Percent Auto 8.1 % (2-11); Neutrophils Absolute Auto 7.6 x10*3/uL (2.0-8.3); Neutrophils Percent Auto 62.3 % (45-73); Platelet Count 329 X10*3/uL (160-400); Red Blood Count 5.05 X10*6/uL (4.60-5.80); Red Cell Distribution Width 12.9 % (11.0-16.0); White Blood Count 12.2 X10*3/uL (4.8-10.8)
[2023-08-17 12:08] LABS: Valproate 44.2 mcg/mL (50.0-100.0)
[2023-08-17 12:10] LABS: Appearance Urine Cloudy; Color Urine Yellow; Glucose Urine UA Negative (Negative); Leukocyte Esterase Urine Negative (Negative); Nitrite Urine Negative (Negative); PH 5.5 (5.0-9.0); Specific Gravity - Urine >= 1.030 (1.005-1.025); UMIC TRIGGER UACC YES; Urine Blood Negative (Negative); Urine Ketones 15 mg/dL (Negative); Urine Protein 30 (1+) mg/dL (Neg-Trace)
--- NOTE | 2023-08-17 12:11 | PC.NURSE ---
Patient changed into hospital attire, belongings locked into pod locker # 11, 1:1 for safety
[2023-08-17 12:16] LABS: Alanine Aminotransferase 18 U/L (0-40); Alkaline Phosphatase 52 U/L (39-117); Anion Gap 22 (12-20); Aspartate Amino Transferase 18 U/L (5-37); Bilirubin Total 0.5 mg/dL (0.0-1.0); Blood Urea Nitrogen 11 mg/dL (9-16); Carbon Dioxide 20 mmol/L (22-29); Chloride 102 mmol/L (96-108); Estimated Glomerular Filt Rate > 60; Ethanol 142 mg/dL; Glucose Random 85 mg/dL (60-115); Potassium 3.8 mmol/L (3.3-5.1); Sodium 140 mmol/L (135-145); Total Protein 6.9 g/dL (6.5-8.0)
[2023-08-17 12:18] LABS: Amphetamine Screen Urine Not Detected (Not Detect); Barbiturates, Urine Not Detected (Not Detect); Benzodiazepines Screen Urine Not Detected (Not Detect); Cannabinoid Screen Urine Not Detected (Not Detect); Cocaine Screen Urine Not Detected (Not Detect); Fentanyl, urine Not Detected (Not Detect); Opiate Screen Urine Not Detected (Not Detect); Phencyclidine Screen Urine Not Detected (Not Detect)
[2023-08-17 12:21] LABS: Bacteria Urine None Seen (None Seen); Granular Casts Urine Present; Hyaline Casts Urine >20 /LPF (0-2); RBC Urine 0-2 /HPF (0-2); WBC Urine 0-5 /HPF (0-5)
--- NOTE | 2023-08-17 14:07 | PC.NURSE ---
Pt brought over to Pod from main ED. Pt is a/ox4, he is responsive to staff questions, and answering appropriately. Pt denies thoughts of direct SI, but stating he is having significant life stressors, and it is all overwhelming him right now. Care team currently at bedside with patient
[2023-08-17 14:51] VITALS: BP 126/77; PULSE 112; RESP 18; TEMP 36.8; O2SAT 96
[2023-08-17 15:31] LABS: COVID-19 Test Negative (Negative); IDNOW Serial# 6674DD1D
--- NOTE | 2023-08-17 15:48 | PC.NURSE ---
pt ambulating around pod with steady gait, respirations even and unlabored, skin pwd. Awaiting CARE team decision at this time
--- NOTE | 2023-08-17 16:20 | PC.NURSE ---
medication rec done by this RN. Meds obtained via medical records, patient unable to remember when he last took each medication
--- NOTE | 2023-08-17 17:54 | PC.NURSE ---
EVENT NOTE; Patient ambulated independently out to chair in common area. Patient reported feeling like he is going to have a seizure. This RN instructed patient to sit down in the chair. Patient began to have facial twitching and hand movements but continued to speak with this RN. Pt asked for water cup back but, then started to stand up and walk around. Pt stated to this RN that he hasn't taken his Keppra today. CHUNG Alfredo attempted to guide patient back to chair but patient began to stumble towards the wall stating I am going to fall . CHUNG Alfredo attempted to catch patient but patient fell and hit head on wall right next lockers. Patient began to shake and have seizure like activity for approximately 30-35 seconds. Pt was bleeding from nose d/t impact with wall. patient was kept on side to prevent aspiration. Medical assist button was pressed, no response from main ED personnel, CHUNG Galan ran to get assistance. Dr. Serna and multiple other staff responded. Patient was moved to a backboard, placed on stretcher and moved to main ED for further care
[2023-08-17] MEDS: LORazepam 2 MG/ML VIAL IVPUSH (17:56)
[2023-08-17] MEDS: ondansetron HCL 4 MG/2 ML VIAL IVPUSH (17:57)
[2023-08-17] MEDS: levETIRAcetam in NaCl (iso-os) 1,000 MG/100 ML PIGGYBACK 400 MG IV (18:08)
[2023-08-17 18:14] LABS: Basophils Absolute Auto 0.1 X10*3/uL (0.0-0.2); Basophils Percent Auto 0.6 % (0-2); Eosinophils Absolute Auto 0.1 X10*3/uL (0.0-0.4); Eosinophils Percent Auto 0.3 % (0-4); Hematocrit 50.2 % (42.0-52.0); Hemoglobin 16.3 g/dl (14.0-18.0); Imm Gran Abs Auto 0.09 X10*3/uL (0.00-0.03); Imm Gran Pct Auto 0.5 % (0.0-0.4); Lymphocytes Percent Auto 44.4 % (20-40); MANUAL DIFF FLAG SCAN; Mean Corpuscular HGB Conc 32.5 g/dl (31.0-36.0); Mean Corpuscular Hemoglobin 30.6 pg (27.0-33.0); Mean Corpuscular Volume 94.2 fL (80.0-98.0); Mean Platelet Volume 9.3 fL (9.4-12.4); Monocytes Absolute Auto 1.8 X10*3/uL (0.1-1.2); Monocytes Percent Auto 9.8 % (2-11); Neutrophils Absolute Auto 8.2 x10*3/uL (2.0-8.3); Neutrophils Percent Auto 44.4 % (45-73); Platelet Count 384 X10*3/uL (160-400); Red Blood Count 5.33 X10*6/uL (4.60-5.80); Red Cell Distribution Width 12.6 % (11.0-16.0); SCAN SMEAR FLAG 1; White Blood Count 18.4 X10*3/uL (4.8-10.8)
--- NOTE | 2023-08-17 18:18 | PC.NURSE ---
POD tech came to main ED requesting assistance in the POD. Kyrie observed face down in front of locker, POD RN assisting patient. With staff assist patient turned on side, slide board placed under patient, patient assisted to stretcher. Cut noted to patients upper lip, bleeding controlled. Patient brought to main ED. Patient alert but post ictal. 2 IV`s placed, meds given per order. Patient brought to CT at this time.
[2023-08-17 18:19] LABS: INTERNATIONAL NORM RATIO 0.9 (0.9-1.1); Lymphocytes Absolute Auto 8.2 X10*3/uL (1.2-4.9); Prothrombin Time 10.8 SEC (11.1-13.3)
[2023-08-17 18:22] LABS: Partial Thromboplastin Time 27.8 SEC (26.0-36.4)
[2023-08-17 18:38] LABS: SLIDE REVIEW VERIFIED
[2023-08-17 18:41] VITALS: BP 105/60; PULSE 125; RESP 18; O2SAT 94
--- NOTE | 2023-08-17 18:44 | PC.NURSE ---
Seizure precautions in place, 1:1 at bedside for safety. Patient alert and oriented, patient stating he felt the seizure was coming and heard staff attempting to have him sit down and then he hit his head. Patient educated not to touch lip ,the MD will be in to assess cut.
[2023-08-17 18:57] LABS: Alanine Aminotransferase 20 U/L (0-40); Albumin Level 4.5 g/dL (3.5-5.0); Alkaline Phosphatase 64 U/L (39-117); Anion Gap 39 (12-20); Aspartate Amino Transferase 20 U/L (5-37); Bilirubin Total 0.6 mg/dL (0.0-1.0); Blood Urea Nitrogen 13 mg/dL (9-16); Calcium 9.4 mg/dL (8.4-10.2); Carbon Dioxide 6 mmol/L (22-29); Chloride 100 mmol/L (96-108); Creatinine Clr Calc Pharmacy 84.3; Estimated Glomerular Filt Rate 56; Glucose Random 120 mg/dL (60-115); Lipase 8 U/L (8-78); Potassium 3.9 mmol/L (3.3-5.1); Sodium 141 mmol/L (135-145); Total Protein 7.9 g/dL (6.5-8.0)
[2023-08-17] MEDS: Divalproex Sodium ER 500 MG TAB.ER.24H PO (20:29)
[2023-08-17] MEDS: Lidocaine HCl 1 % MPF 5 ML VIAL INFILTRATI (20:29)
[2023-08-17] MEDS: LORazepam 1 MG TABLET 2 MG PO (22:58)
[2023-08-17] MEDS: Bacitracin Oint 0.9 GM PACKET 1 APPL TOPICAL (23:53)
[2023-08-18 04:35] VITALS: RESP 14
--- NOTE | 2023-08-18 04:35 | PC.NURSE ---
patient sleeping at this time, respirations even and unlabored, no seizure like activity thus far
--- NOTE | 2023-08-18 07:30 | PHA.MEDREC ---
Pharmacy Consult ? Medication Reconciliation Pharmacy has completed the medication reconciliation. Reviewed med rec done by nursing
[2023-08-18 09:32] VITALS: BP 129/73; PULSE 106; RESP 18; TEMP 36.6; O2SAT 96
[2023-08-18] MEDS: levETIRAcetam 1,000 MG TABLET 1000 MG PO ×2 (09:34→19:34)
[2023-08-18] MEDS: Escitalopram Oxalate 20 MG TABLET 10 MG PO (09:34)
[2023-08-18] MEDS: Omeprazole 20 MG CAPSULE.DR PO (09:34)
[2023-08-18] MEDS: NaPROXEN 500 MG TABLET PO ×2 (09:35→19:34)
[2023-08-18] MEDS: LORazepam 1 MG TABLET 2 MG PO ×3 (09:35→19:49)
[2023-08-18] MEDS: Bacitracin Oint 0.9 GM PACKET 1 APPL TOPICAL ×2 (09:35→19:31)
[2023-08-18] MEDS: Divalproex Sodium 500 MG TABLET.DR PO ×2 (09:35→19:30)
[2023-08-18] MEDS: Acamprosate Calcium 333 MG TABLET.DR 666 MG PO ×2 (09:39→20:41)
--- NOTE | 2023-08-18 13:57 | MHC.CARE ---
CARE Team [employer] attempted to meet with pt. Pt is observed sleeping and not engageable at this time.
[2023-08-18 15:59] VITALS: RESP 16
--- NOTE | 2023-08-18 17:24 | PC.NURSE ---
Kyrie was OOB this morning and approached the nurses station for juice and his AM medication. Kyrie was adherent with all scheduled medication. CIWA 7 and he reports he is uncomfortable, Lorazepam 2mg PO given. Appetite is good and there have been no behavioral concerns noted this shift. Kyrie denied SI/HI/AVH but does endorse feeling depressed and off . Staff will continue to monitor.
[2023-08-18 17:44] VITALS: BP 147/88; PULSE 98; RESP 18; TEMP 36.8; O2SAT 98
[2023-08-18 19:35] VITALS: BP 130/87; PULSE 101; RESP 18; TEMP 36; O2SAT 96
[2023-08-18 23:30] VITALS: BP 130/84; PULSE 87; RESP 16; TEMP 36.4; O2SAT 98
--- NOTE | 2023-08-19 06:33 | PC.NURSE ---
Patient slept through the night, no distress observed/reported, asymptomatic of withdrawal at this time, Ativan 2 mg PO administered at 1949 for general comfort with + effect, disposition per care team Section 12 inpatient bed search, labs completed/resulted, VSS, will continue to monitor.
--- NOTE | 2023-08-19 08:56 | PC.NURSE ---
patient appears to remain at rest respirations are even and unlabored patient appears in no distress
[2023-08-19] MEDS: NaPROXEN 500 MG TABLET PO ×2 (09:00→20:50)
[2023-08-19] MEDS: Acamprosate Calcium 333 MG TABLET.DR 666 MG PO ×3 (09:00→20:49)
[2023-08-19] MEDS: Bacitracin Oint 0.9 GM PACKET 1 APPL TOPICAL ×2 (09:00→20:49)
[2023-08-19] MEDS: Omeprazole 20 MG CAPSULE.DR PO (09:00)
[2023-08-19] MEDS: Divalproex Sodium 500 MG TABLET.DR PO ×2 (09:00→20:49)
[2023-08-19] MEDS: levETIRAcetam 1,000 MG TABLET 1000 MG PO ×2 (09:01→20:50)
[2023-08-19] MEDS: Escitalopram Oxalate 20 MG TABLET 10 MG PO (09:01)
--- NOTE | 2023-08-19 09:22 | PC.NURSE ---
gave patient some education about wound cleansing and treatment, and also about new medication, campral.
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
[2023-08-19 11:42] VITALS: BP 116/62; PULSE 80; RESP 16; TEMP 36.9; O2SAT 94
[2023-08-19 12:30] LABS: MANUAL DIFF FLAG NO
[2023-08-19 12:39] LABS: Basophils Absolute Auto 0.1 X10*3/uL (0.0-0.2); Basophils Percent Auto 0.7 % (0-2); Eosinophils Percent Auto 0.3 % (0-4); Hematocrit 42.5 % (42.0-52.0); Hemoglobin 14.9 g/dl (14.0-18.0); Imm Gran Abs Auto 0.02 X10*3/uL (0.00-0.03); Imm Gran Pct Auto 0.3 % (0.0-0.4); Lymphocytes Absolute Auto 2.1 X10*3/uL (1.2-4.9); Mean Corpuscular HGB Conc 35.1 g/dl (31.0-36.0); Mean Corpuscular Hemoglobin 31.1 pg (27.0-33.0); Mean Corpuscular Volume 88.7 fL (80.0-98.0); Mean Platelet Volume 9.4 fL (9.4-12.4); Monocytes Absolute Auto 0.5 X10*3/uL (0.1-1.2); Monocytes Percent Auto 6.9 % (2-11); Neutrophils Absolute Auto 4.6 x10*3/uL (2.0-8.3); Neutrophils Percent Auto 62.8 % (45-73); Platelet Count 283 X10*3/uL (160-400); Red Blood Count 4.79 X10*6/uL (4.60-5.80); Red Cell Distribution Width 12.5 % (11.0-16.0); White Blood Count 7.4 X10*3/uL (4.8-10.8)
[2023-08-19 12:51] LABS: Alanine Aminotransferase 14 U/L (0-40); Albumin Level 3.7 g/dL (3.5-5.0); Alkaline Phosphatase 48 U/L (39-117); Anion Gap 16 (12-20); Aspartate Amino Transferase 27 U/L (5-37); Bilirubin Total 0.9 mg/dL (0.0-1.0); Blood Urea Nitrogen 16 mg/dL (9-16); Calcium 9.2 mg/dL (8.4-10.2); Carbon Dioxide 24 mmol/L (22-29); Chloride 104 mmol/L (96-108); Creatinine Clr Calc Pharmacy 92.8; Estimated Glomerular Filt Rate > 60; Glucose Random 91 mg/dL (60-115); Sodium 140 mmol/L (135-145); Total Protein 6.7 g/dL (6.5-8.0)
[2023-08-19] MEDS: Thiamine HCL 100 MG TABLET PO (13:39)
[2023-08-19 15:45] VITALS: BP 136/85; PULSE 93; RESP 18; TEMP 36.5; O2SAT 98
--- NOTE | 2023-08-19 17:27 | PC.ADMIT ---
Kyrie is an alert and oriented 38 yo male who was admitted to the unit after he presented to the ED on 08/17 complaining of heavy etoh use and suicidal ideation. He also complained of having a seizure at home and reported history of epilepsy. During time in the ED patient had a witnessed seizure that involved falling with injury(lac to upper lip needing sutures). Kyrie was calm, cooperative, and engaged with admission process, denies current depression or anxiety, denies SI, HI, AVH and reports he feels he would notify staff if he had thoughts of hurting himself. Skin check performed by this RN with an MHA and patient was oriented to the unit.
[2023-08-19] MEDS: Nicotine 21 MG PATCH.TD24 TRANSDERMA (18:07)
[2023-08-19 20:45] VITALS: BP 125/71; PULSE 100; RESP 16; TEMP 37; O2SAT 97
[2023-08-20] MEDS: hydrOXYzine HCL 25 MG TABLET PO ×2 (00:47→20:28)
[2023-08-20] MEDS: traZODone HCL 50 MG TABLET PO ×2 (00:47→20:28)
[2023-08-20] MEDS: Escitalopram Oxalate 20 MG TABLET 10 MG PO (08:54)
[2023-08-20] MEDS: Acamprosate Calcium 333 MG TABLET.DR 666 MG PO ×3 (08:54→20:27)
[2023-08-20] MEDS: levETIRAcetam 1,000 MG TABLET 1000 MG PO ×2 (08:55→20:28)
[2023-08-20] MEDS: NaPROXEN 500 MG TABLET PO (08:55)
[2023-08-20] MEDS: Nicotine 21 MG PATCH.TD24 TRANSDERMA (08:56)
[2023-08-20] MEDS: Omeprazole 20 MG CAPSULE.DR PO (08:56)
[2023-08-20] MEDS: Thiamine HCL 100 MG TABLET PO (08:56)
[2023-08-20] MEDS: Bacitracin Oint 0.9 GM PACKET 1 APPL TOPICAL ×2 (08:56→20:31)
[2023-08-20] MEDS: Divalproex Sodium 500 MG TABLET.DR PO ×2 (08:56→20:31)
[2023-08-20 08:57] VITALS: BP 119/76; PULSE 87; RESP 17; TEMP 36.6; O2SAT 96
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
[2023-08-20 09:37] LABS: Alanine Aminotransferase 13 U/L (0-40); Albumin Level 3.7 g/dL (3.5-5.0); Alkaline Phosphatase 47 U/L (39-117); Anion Gap 13 (12-20); Aspartate Amino Transferase 21 U/L (5-37); Bilirubin Total 0.9 mg/dL (0.0-1.0); Blood Urea Nitrogen 14 mg/dL (9-16); Calcium 9.4 mg/dL (8.4-10.2); Carbon Dioxide 29 mmol/L (22-29); Chloride 103 mmol/L (96-108); Cholesterol 195 mg/dL (<200); Creatinine Clr Calc Pharmacy 99.8; Estimated Glomerular Filt Rate > 60; Glucose Fasting 83 mg/dL (60-99); HDL Cholesterol 44 mg/dL (>40); LDL Cholesterol Calculated 125 mg/dL (<100); Potassium 3.7 mmol/L (3.3-5.1); Sodium 141 mmol/L (135-145); Total Protein 6.6 g/dL (6.5-8.0); Triglycerides 132 mg/dL (<150)
[2023-08-20 09:50] LABS: Free T4 (Free Thyroxine) 0.94 ng/dL (0.71-1.85); Thyroid Stimulating Hormone 2.11 uIU/mL (0.32-4.0)
[2023-08-20 10:05] LABS: Folate 8.5 ng/mL (> or = 4.0); Vitamin B12 796 pg/mL (200-900)
[2023-08-20 12:02] LABS: Estimated Average Glucose 100 mg/dL; Hemoglobin A1c % 5.1 % (<6.0)
[2023-08-20 20:45] VITALS: BP 114/73; PULSE 79; TEMP 36.6; O2SAT 97
[2023-08-21 06:00] VITALS: BP 126/87; PULSE 78; RESP 16; TEMP 36.2; O2SAT 96
[2023-08-21 07:00] VITALS: BMI 30.3
[2023-08-21] MEDS: Acamprosate Calcium 333 MG TABLET.DR 666 MG PO ×3 (09:45→21:07)
[2023-08-21] MEDS: Nicotine 21 MG PATCH.TD24 TRANSDERMA (09:45)
[2023-08-21] MEDS: Escitalopram Oxalate 20 MG TABLET 10 MG PO (09:45)
[2023-08-21] MEDS: Thiamine HCL 100 MG TABLET PO (09:45)
[2023-08-21] MEDS: levETIRAcetam 1,000 MG TABLET 1000 MG PO ×2 (09:45→21:07)
[2023-08-21] MEDS: Bacitracin Oint 0.9 GM PACKET 1 APPL TOPICAL ×2 (09:45→21:07)
[2023-08-21] MEDS: Omeprazole 20 MG CAPSULE.DR PO (09:45)
[2023-08-21] MEDS: Divalproex Sodium 500 MG TABLET.DR PO ×2 (09:45→21:07)
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
[2023-08-21 21:11] VITALS: BP 130/76; PULSE 90; RESP 18; TEMP 36.2; O2SAT 96
[2023-08-22 08:30] VITALS: BP 127/80; PULSE 74; RESP 18; TEMP 36.3; O2SAT 96
[2023-08-22] MEDS: Omeprazole 20 MG CAPSULE.DR PO (08:44)
[2023-08-22] MEDS: Acamprosate Calcium 333 MG TABLET.DR 666 MG PO (08:44)
[2023-08-22] MEDS: levETIRAcetam 1,000 MG TABLET 1000 MG PO (08:44)
[2023-08-22] MEDS: Nicotine 21 MG PATCH.TD24 TRANSDERMA (08:44)
[2023-08-22] MEDS: Bacitracin Oint 0.9 GM PACKET 1 APPL TOPICAL (08:45)
[2023-08-22] MEDS: Divalproex Sodium 500 MG TABLET.DR PO (08:45)
[2023-08-22] MEDS: Escitalopram Oxalate 20 MG TABLET 10 MG PO (08:45)
[2023-08-22] MEDS: Thiamine HCL 100 MG TABLET PO (08:45)
== END 2023-08-22 12:10 | disposition home or self-care (01) | DRG 881 ==
LOC: HO.ED 22:50 → HO.PADLT16 08-19 14:41
PROVIDERS: Emergency Medicine; Social Worker; Admitting Provider Psychiatry & Neurology Psychiatry; Emergency Provider Emergency Medicine Emergency Medical Services; PCP Internal Medicine; Visit Provider Psychiatry & Neurology Psychiatry
DX: F32.A Depression, unspecified (principal); R45.851 Suicidal ideations; S01.511A Laceration without foreign body of lip, initial encounter; F10.10 Alcohol abuse, uncomplicated; W19.XXXA Unspecified fall, initial encounter; G40.909 Epilepsy, unspecified, not intractable, without status epilepticus; F17.210 Nicotine dependence, cigarettes, uncomplicated; Z71.6 Tobacco abuse counseling; Z20.822 Contact with and (suspected) exposure to COVID-19; Y90.6 Blood alcohol level of 120-199 mg/100 ml; Z62.810 Personal history of physical and sexual abuse in childhood; Z91.148 Patient's other noncompliance with medication regimen for other reason; Z79.899 Other long term (current) drug therapy
CPT/HCPCS: 36415; 70450; 70486; 72125; 80053; 80061; 80164; 80307; 81001; 82607; 82746; 83036; 83690; 84439; 84443; 85025; 85610; 85730; 87635; 93005; 99285; J1953; J2060; J2405; S9485

== ENCOUNTER → 2023-08-19 14:29 | Outpatient (BNV) | payer OTHER, SELFPAY | PROVIDERS: Admitting Provider Psychiatry & Neurology Psychiatry; Emergency Provider Emergency Medicine Emergency Medical Services; PCP Internal Medicine; Visit Provider Psychiatry & Neurology Psychiatry | DX: F33.1 Major depressive disorder, recurrent, moderate (principal); F10.930 Alcohol use, unspecified with withdrawal, uncomplicated; G40.909 Epilepsy, unspecified, not intractable, without status epilepticus; F17.200 Nicotine dependence, unspecified, uncomplicated | CPT/HCPCS: 90792; 99239 ==

== ENCOUNTER 2024-03-17 09:29 | Emergency (ER) | payer OTHER, SELFPAY ==
--- NOTE | ~2024-03-17 | XR_ITS ---
EXAMINATION: XR FOOT, RIGHT CLINICAL INFORMATION: Pain. Seizure. COMPARISON: None available. TECHNIQUE: AP, lateral, and oblique views of the right foot. FINDINGS: The bones and soft tissues are normal. No fracture. Alignment is anatomic. Joint spaces are maintained. XR/XR foot RT min 3V IMPRESSION: Normal right foot.
[2024-03-17 09:42] VITALS: BP 123/71; BP 130/80; PULSE 108; PULSE 118; RESP 24; TEMP 36.9; O2SAT 94; O2SAT 98; BMI 34.0
--- NOTE | 2024-03-17 09:59 | ED_ITS ---
HPI - Seizure General Chief Complaint: Seizure Stated Complaint: SZ,POST ICTAL PER EMS Time Seen by Provider: 03/17/24 09:35 Source: patient and old records reviewed Mode of arrival: EMS Limitations: no limitations History of Present Illness HPI Narrative: 39 yo male with PMH of seizures takes depakote and keppra states he is fairly compliant and took his meds today, anxiety, depression, GERD, has been having more seizures since September has appointment with Neurology in March. He notes he is more anxious, under stress and not sleeping well. Had aura and seizure noted 1 min GTC was postictal and agitated - no medications given c/o pain in R foot after seizure complaint: seizure Onset (ago): minute(s) (NURSING CONSULTANT) Description of Episode: loss of consciousness and tonic-clonic movement Duration of episode: 1 -: minutes(s) Witnessed: Yes - by Bystander Trauma: Yes (R foot) Seizure History: Yes Place: Home Possible Precipitating Event: lack of sleep and stress Associated symptoms: denies other symptoms Treatments prior to arrival: none Related Data Previous Rx's ?Medication ?Instructions ?Recorded acamprosate 333 mg tablet,delayed 666 mg (2 x 333 mg) PO TID 30 days 08/21/23 release #180 tabs escitalopram oxalate 20 mg tablet 10 mg (1/2 x 20 mg) PO DAILY 30 08/21/23 days #15 tabs nicotine (polacrilex) 2 mg gum 4 mg buccal Q2H PRN Nicotine 08/21/23 Cravings 30 days #180 ea nicotine 21 mg/24 hr daily 21 mg transdermal DAILY 28 days 08/21/23 transdermal patch #28 ea trazodone 50 mg tablet 50 mg PO BEDTIME Insomnia 30 days 08/21/23 #30 tabs divalproex 250 mg tablet,delayed 500 mg (2 x 250 mg) PO BID #270 10/02/23 release tabs levetiracetam 1,000 mg tablet 1,000 mg PO BID 90 days #180 tabs 10/08/23 (Keppra) pantoprazole 40 mg tablet,delayed 40 mg PO DAILY 90 days #90 tabs 12/28/23 release meloxicam 15 mg tablet 15 mg PO DAILY #30 tabs 02/11/24 levetiracetam 1,000 mg tablet 1,500 mg (1.5 x 1,000 mg) PO BID 03/17/24 (Keppra) #45 tabs Allergies Allergy/AdvReac Type Severity Reaction Status Date / Time No Known Allergies Allergy Verified 03/17/24 09:43 [No Known Allergies*] Review of Systems 2 Review of Systems: Constitutional : No Fever, No Chills, No Fatigue ENT/Mouth : No sore throat, No Rhinorrhea Eyes: No Eye Pain, No Swelling, No Redness Cardiovascular : No Chest Pain, No SOB, No Dyspnea on Exertion Respiratory : No Cough, No Sputum Gastrointestinal : No Nausea, No Vomiting, No Diarrhea, No abdominal Pain Genitourinary : No Dysuria, No Urinary Frequency, No Hematuria, Musculoskeletal : No joint pain, No Myalgias, No Joint Swelling, pos foot pain Skin : No Skin Lesions, No rash Neuro : No Weakness, No Numbness, No Dizziness, no Headache, pos seizure Psych : No Anxiety/Panic, No Depression All other systems reviewed and are negative PMFSH Past Medical History Attestation statement: The following information was validated with the patient. Source: old records reviewed Medical History Alcohol use disorder History of benign brain tumor Generalized seizure Bipolar 1 disorder Obesity (BMI 30-39.9) Tobacco abuse GERD (gastroesophageal reflux disease) Anxiety and depression Seizure disorder Surgical History H/O brain surgery Family History Family History Other No family history of coronary artery disease Substance use disorder Social History Social History Household Members: None Housing: Apartment Do you presently have visiting nurse or other home services: No Alcohol intake: current Alcohol intake frequency: 3 or more drinks per day Patient Tobacco Use Status: Current everyday Tobacco user Tobacco use type: Cigarette Cigarette Packs Per Day: 1 Cigarettes Per Day: 20.0 Years Smoked: 15 Smoked in Last 30 Days: Yes e-Cigarette/Vaping Use: Never Used Second Hand Smoke Exposure: Yes Use of substances other than those prescribed or required for medical reasons: No Substance Use Type: Crack/Cocaine Advance Directives: No Advance Directives Information Provided: Yes Do you have a plan to hurt others: No Plan service: No Current occupational status: unemployed Sexual orientation: Straight/Heterosexual Cognitive needs: No Hearing needs: No Vision needs: No Physical Exam 2 Vital Signs: Vital Signs: Last Vital Signs Temp 98.6 F 03/17/24 12:22 Pulse 72 03/17/24 12:22 Resp 16 03/17/24 12:22 BP 100/71 03/17/24 12:22 Pulse Ox 99 03/17/24 12:22 O2 Del Method Room Air 03/17/24 12:22 BMI result Body Mass Index 34.0 Appearance: Alert. Oriented X3. No acute distress. Eyes: Pupils equal, round and reactive to light. ENT: Pharynx normal. atraumatic Neck: Normal inspection. Neck supple. CVS: Normal heart rate and rhythm. Pulses normal. Respiratory: No respiratory distress. Breath sounds normal. Abdomen: Soft and non-tender. Skin: Skin warm and dry. Normal skin color. Extremities: No lower extremity edema. R foot ttp NV intact Neuro: Oriented X 3. No motor deficit. No sensory deficit. Medications Administered Discontinued Medications Generic Name Dose Route Start Last Admin Trade Name Freq PRN Reason Stop Dose Admin Sodium Chloride 1,000 mls @ 999 mls/hr 03/17/24 10:00 03/17/24 11:39 Ns IV 03/17/24 11:00 Infused .Q1H1M BREANNA Infusion Lorazepam 1 mg 03/17/24 09:57 03/17/24 10:20 Lorazepam 2 Mg/Ml Vial IVPUSH 03/17/24 09:58 1 mg STAT STA Administration Medical Decision Making Medical Decision Making [facility] Narrative: 39 yo male with PMH of seizures takes depakote and keppra states he is fairly compliant and took his meds today, anxiety, depression, GERD here after seizure at home - he reports compliance I confirmed he last picked up 90 day Rx of each in December at this time IV ativan, labs, EKG, IVF, R foot xray. No obvious head trauma he is GCS 15 will increase keppra to 1500mg BID. Differential Diagnosis Differential Diagnoses: The differential diagnosis associated with the presentation includes seizure, stress, non compliance Admission/Observation Consideration of admission/observation: Escalation of care including admission/observation considered at baseline stable for DC plan to start on keppra 1500mg BID and he will call his neurologist Lab Data [facility] Lab Attestation statement: I reviewed the patient's lab results. 03/17/24 10:11 03/17/24 10:11 Labs: Lab Results 03/17/24 Range/Units 10:11 WBC 10.0 (4.8-10.8) X10*3/uL RBC 5.08 (4.60-5.80) X10*6/uL Hgb 15.4 (14.0-18.0) g/dl Hct 43.7 (42.0-52.0) % MCV 86.0 (80.0-98.0) fL MCH 30.3 (27.0-33.0) pg MCHC 35.2 (31.0-36.0) g/dl RDW 12.1 (11.0-16.0) % Plt Count 296 (160-400) X10*3/uL MPV 9.5 (9.4-12.4) fL Immature Gran % (Auto) 0.8 H (0.0-0.4) % Neut % (Auto) 50.6 (45-73) % Lymph % (Auto) 42.0 H (20-40) % [place] % (Auto) 5.5 (2-11) % Eos % (Auto) 0.8 (0-4) % Baso % (Auto) 0.3 (0-2) % Lymph # (Auto) 4.2 (1.2-4.9) X10*3/uL [place] # (Auto) 0.6 (0.1-1.2) X10*3/uL Eos # (Auto) 0.1 (0.0-0.4) X10*3/uL Baso # (Auto) 0.0 (0.0-0.2) X10*3/uL Abs Immat Gran (auto) 0.08 H (0.00-0.03) X10*3/uL Absolute Neuts (auto) 5.0 (2.0-8.3) x10*3/uL Absolute Nucleated RBC 0.000 (0.0-0.012) X10*3/uL Nucleated RBC % (auto) 0.0 (0.0-0.2) /100WBC Sodium 135 (135-145) mmol/L Potassium 3.7 (3.3-5.1) mmol/L Chloride 106 (96-108) mmol/L Carbon Dioxide 18 L (22-29) mmol/L Anion Gap 15 (12-20) BUN 14 (9-16) mg/dL Creatinine 1.08 (0.5-1.4) mg/dL Estim Creat Clear Calc 107.0 Estimated GFR > 60 Random Glucose 119 H (60-115) mg/dL Calcium 8.9 (8.4-10.2) mg/dL Magnesium 2.4 (1.6-2.6) mg/dL Total Bilirubin 0.3 (0.0-1.0) mg/dL Direct Bilirubin 0.1 (0.0-0.5) mg/dL AST 20 (5-37) U/L ALT 30 (0-40) U/L Alkaline Phosphatase 42 (39-117) U/L Total Protein 6.6 (6.5-8.0) g/dL Albumin 3.7 (3.5-5.0) g/dL Valproic Acid 47.8 L (50.0-100.0) mcg/mL Ethyl Alcohol < 10 mg/dL Independent Interpretation I performed an independent interpretation of an: EKG and Plain X-Ray (no fracture) Interpretation: Rate: Rhythm: [place]: Normal P waves. Normal PIO. Normal QRS complex. ST T wave : qTC: prior studies: The study has been interpreted contemporaneously by me. . Radiology Impression Discussion of test interpretation with radiology: I have reviewed the radiologist's reading. Independent Historian Clinical information obtained from an independent historian. History obtained from or confirmed by: Spouse and EMS External Record Review External record reviewed: Inpatient record Prescription Management I considered prescription management with: Other Discharge Plan Discharge Clinical Impression: Generalized seizure Patient Disposition: Home, Self-Care Instructions: Recurrent Seizures in Adults (ED) Additional Instructions: increase keppra to 1500mg twice a day call your neurologist remember to not swim alone, cook over open flame, operate heavy machinery or drive while having seizures return for any worsening symptoms or concerns. Prescriptions: New levetiracetam [Keppra] 1,000 mg tablet 1,500 mg PO BID Qty: 45 1RF No Action divalproex 250 mg tablet,delayed release (DR/EC) 500 mg PO BID Qty: 270 3RF levetiracetam [Keppra] 1,000 mg tablet 1,000 mg PO BID 90 Days Qty: 180 1RF pantoprazole 40 mg tablet,delayed release (DR/EC) 40 mg PO DAILY 90 Days Qty: 90 0RF meloxicam 15 mg tablet 15 mg PO DAILY Qty: 30 0RF trazodone 50 mg Tablet 50 mg PO BEDTIME 30 Days Qty: 30 0RF nicotine (polacrilex) 2 mg Gum 4 mg buccal Q2H PRN (Reason: Nicotine Cravings) 30 Days Qty: 180 0RF nicotine 21 mg/24 hr Patch 24 Hour 21 mg transdermal DAILY 28 Days Qty: 28 0RF escitalopram oxalate 20 mg Tablet 10 mg PO DAILY 30 Days Qty: 15 0RF acamprosate 333 mg Tablet,Delayed Release (Dr/Ec) 666 mg PO TID 30 Days Qty: 180 0RF Stand Alone Forms: Work/School Release Print Language: Cymro
[2024-03-17 10:13] VITALS: BP 117/67; PULSE 105; RESP 15; O2SAT 93
[2024-03-17 10:16] LABS: MANUAL DIFF FLAG NO
[2024-03-17] MEDS: 0.9 % Sodium Chloride 1,000 ML 999 ML IV (10:19)
[2024-03-17 10:20] LABS: Basophils Percent Auto 0.3 % (0-2); Eosinophils Absolute Auto 0.1 X10*3/uL (0.0-0.4); Eosinophils Percent Auto 0.8 % (0-4); Hematocrit 43.7 % (42.0-52.0); Hemoglobin 15.4 g/dl (14.0-18.0); Imm Gran Abs Auto 0.08 X10*3/uL (0.00-0.03); Imm Gran Pct Auto 0.8 % (0.0-0.4); Lymphocytes Absolute Auto 4.2 X10*3/uL (1.2-4.9); Mean Corpuscular HGB Conc 35.2 g/dl (31.0-36.0); Mean Corpuscular Hemoglobin 30.3 pg (27.0-33.0); Mean Platelet Volume 9.5 fL (9.4-12.4); Monocytes Absolute Auto 0.6 X10*3/uL (0.1-1.2); Monocytes Percent Auto 5.5 % (2-11); Neutrophils Percent Auto 50.6 % (45-73); Platelet Count 296 X10*3/uL (160-400); Red Blood Count 5.08 X10*6/uL (4.60-5.80); Red Cell Distribution Width 12.1 % (11.0-16.0)
[2024-03-17] MEDS: LORazepam 2 MG/ML VIAL 1 MG IVPUSH (10:20)
[2024-03-17 10:30] LABS: Valproate 47.8 mcg/mL (50.0-100.0)
[2024-03-17 10:41] LABS: Alanine Aminotransferase 30 U/L (0-40); Albumin Level 3.7 g/dL (3.5-5.0); Alkaline Phosphatase 42 U/L (39-117); Anion Gap 15 (12-20); Aspartate Amino Transferase 20 U/L (5-37); Bilirubin Direct 0.1 mg/dL (0.0-0.5); Bilirubin Total 0.3 mg/dL (0.0-1.0); Blood Urea Nitrogen 14 mg/dL (9-16); Calcium 8.9 mg/dL (8.4-10.2); Carbon Dioxide 18 mmol/L (22-29); Chloride 106 mmol/L (96-108); Estimated Glomerular Filt Rate > 60; Ethanol < 10 mg/dL; Glucose Random 119 mg/dL (60-115); Magnesium 2.4 mg/dL (1.6-2.6); Potassium 3.7 mmol/L (3.3-5.1); Sodium 135 mmol/L (135-145); Total Protein 6.6 g/dL (6.5-8.0)
--- NOTE | 2024-03-17 12:00 | PC.NURSE ---
Pt BIBA, from home reporting aura called 911, upon EMS arrival pt unresponsive, roommate reported seizure for approximately 1 min , postictal, violent and confused upon resolve. Pt states has not missed any doses of keppra.
[2024-03-17 12:22] VITALS: BP 100/71; PULSE 72; RESP 16; TEMP 37; O2SAT 99
--- NOTE | 2024-03-17 13:58 | PC.NURSE ---
Pt AOx4, 20G LAC, Pt ambulates to bathroom with steady gait, pt reports slight dizziness upon standing. Pt calm and cooperative, no new orders.
[2024-03-17 14:00] VITALS: BP 114/72; PULSE 83; RESP 16; TEMP 37.3; O2SAT 97
[2024-03-17 14:14] VITALS: BP 114/72; PULSE 83; RESP 16; TEMP 37.3; O2SAT 97
== END 2024-03-17 14:17 | disposition home or self-care (01) ==
PROVIDERS: Emergency Provider Emergency Medicine; PCP Internal Medicine
DX: G40.409 Other generalized epilepsy and epileptic syndromes, not intractable, without status epilepticus (principal); M79.671 Pain in right foot; Z79.899 Other long term (current) drug therapy
CPT/HCPCS: 36415; 73630; 80048; 80076; 80164; 80307; 83735; 85025; 96361; 96374; 99284; J2060

== ENCOUNTER 2024-04-06 20:08 | Emergency (ER) | payer OTHER, SELFPAY ==
[2024-04-06 20:19] VITALS: BP 110/78; BP 117/75; PULSE 86; PULSE 93; RESP 18; TEMP 36.8; O2SAT 95; O2SAT 98; BMI 31.3
[2024-04-06 20:50] LABS: MANUAL DIFF FLAG NO
[2024-04-06 20:50] LABS: Glucose, Whole Blood 105 mg/dL (60-115)
[2024-04-06 20:52] LABS: Basophils Percent Auto 0.5 % (0-2); Eosinophils Absolute Auto 0.1 X10*3/uL (0.0-0.4); Eosinophils Percent Auto 0.7 % (0-4); Hematocrit 42.5 % (42.0-52.0); Hemoglobin 14.9 g/dl (14.0-18.0); Imm Gran Abs Auto 0.03 X10*3/uL (0.00-0.03); Imm Gran Pct Auto 0.4 % (0.0-0.4); Lymphocytes Percent Auto 26.1 % (20-40); Mean Corpuscular HGB Conc 35.1 g/dl (31.0-36.0); Mean Corpuscular Hemoglobin 30.4 pg (27.0-33.0); Mean Corpuscular Volume 86.7 fL (80.0-98.0); Mean Platelet Volume 9.5 fL (9.4-12.4); Monocytes Absolute Auto 0.5 X10*3/uL (0.1-1.2); Monocytes Percent Auto 7.2 % (2-11); Neutrophils Absolute Auto 4.9 x10*3/uL (2.0-8.3); Neutrophils Percent Auto 65.1 % (45-73); Platelet Count 284 X10*3/uL (160-400); Red Cell Distribution Width 12.3 % (11.0-16.0); White Blood Count 7.5 X10*3/uL (4.8-10.8)
--- NOTE | 2024-04-06 21:02 | ED_ITS ---
HPI - Seizure General Chief Complaint: Seizure Stated Complaint: SEIZURE Time Seen by Provider: 04/06/24 20:59 Source: patient, EMS and old records reviewed Mode of arrival: EMS Limitations: no limitations History of Present Illness HPI Narrative: 39 yo male with PMH of seizures on keppra and depakote reports compliance though last time I saw him in February there was a question of compliance, ETOH abuse, anxiety and depression who presents with c/o having another episode he states he felt like he had a seizure. He felt tired, thinks he shook salivated, no trauma. No tongue biting or incontinence. He called 911 to be checked out. He states he is compliant with medications though his partner notes he is not fully compliant. He does not eat well per her. He does note he has neurology appointment on Friday and reports that PRN ativan has helped him in the past. MD complaint: possible seizure and feels seizure coming on Onset (ago): day(s) (today) Description of Episode: other Witnessed: No Trauma: No Seizure History: Yes Place: Home Possible Precipitating Event: none Associated symptoms: denies other symptoms Treatments prior to arrival: none Related Data Previous Rx's ?Medication ?Instructions ?Recorded acamprosate 333 mg tablet,delayed 666 mg (2 x 333 mg) PO TID 30 days 08/21/23 release #180 tabs escitalopram oxalate 20 mg tablet 10 mg (1/2 x 20 mg) PO DAILY 30 08/21/23 days #15 tabs nicotine (polacrilex) 2 mg gum 4 mg buccal Q2H PRN Nicotine 08/21/23 Cravings 30 days #180 ea nicotine 21 mg/24 hr daily 21 mg transdermal DAILY 28 days 08/21/23 transdermal patch #28 ea trazodone 50 mg tablet 50 mg PO BEDTIME Insomnia 30 days 08/21/23 #30 tabs divalproex 250 mg tablet,delayed 500 mg (2 x 250 mg) PO BID #270 10/02/23 release tabs levetiracetam 1,000 mg tablet 1,000 mg PO BID 90 days #180 tabs 10/08/23 (Keppra) pantoprazole 40 mg tablet,delayed 40 mg PO DAILY 90 days #90 tabs 12/28/23 release meloxicam 15 mg tablet 15 mg PO DAILY #30 tabs 02/11/24 levetiracetam 1,000 mg tablet 1,500 mg (1.5 x 1,000 mg) PO BID 03/17/24 (Keppra) #45 tabs lorazepam 1 mg tablet (Ativan) 1 mg PO BEDTIME PRN anxiety #7 tabs 04/06/24 Allergies Allergy/AdvReac Type Severity Reaction Status Date / Time No Known Allergies Allergy Verified 04/06/24 20:24 [No Known Allergies*] Review of Systems 2 Review of Systems: Constitutional : No Fever, No Chills, No Fatigue ENT/Mouth : No sore throat, No Rhinorrhea Eyes: No Eye Pain, No Swelling, No Redness Cardiovascular : No Chest Pain, No SOB, No Dyspnea on Exertion Respiratory : No Cough, No Sputum Gastrointestinal : No Nausea, No Vomiting, No Diarrhea, No abdominal Pain Genitourinary : No Dysuria, No Urinary Frequency, No Hematuria, Musculoskeletal : No joint pain, No Myalgias, No Joint Swelling Skin : No Skin Lesions, No rash Neuro : No Weakness, No Numbness, No Dizziness, no Headache Psych : pos Anxiety/Panic, No Depression All other systems reviewed and are negative [facility] Past Medical History Attestation statement: The following information was validated with the patient. Source: old records reviewed Medical History Alcohol use disorder History of benign brain tumor Generalized seizure Bipolar 1 disorder Obesity (BMI 30-39.9) Tobacco abuse GERD (gastroesophageal reflux disease) Anxiety and depression Seizure disorder Surgical History H/O brain surgery Family History Family History Other No family history of coronary artery disease Substance use disorder Social History Social History Household Members: None Housing: Apartment Do you presently have visiting nurse or other home services: No Alcohol intake: current Alcohol intake frequency: 3 or more drinks per day Patient Tobacco Use Status: Current everyday Tobacco user Tobacco use type: Cigarette Cigarette Packs Per Day: 1 Cigarettes Per Day: 20.0 Years Smoked: 15 e-Cigarette/Vaping Use: Never Used Second Hand Smoke Exposure: Yes Substance Use Type: Crack/Cocaine Advance Directives: No Advance Directives Information Provided: No service: No Current occupational status: unemployed Sexual orientation: Straight/Heterosexual Cognitive needs: No Hearing needs: No Vision needs: No Physical Exam 2 Vital Signs: Vital Signs: Last Vital Signs Temp 98.3 F 04/06/24 20:19 Pulse 93 04/06/24 20:19 Resp 18 04/06/24 20:19 BP 117/75 04/06/24 20:19 Pulse Ox 95 04/06/24 20:19 O2 Del Method Room Air 04/06/24 20:19 BMI result Body Mass Index 31.3 Appearance: Alert. Oriented X3. No acute distress. Eyes: Pupils equal, round and reactive to light. ENT: Pharynx normal. atraumatic no tongue biting Neck: Normal inspection. Neck supple. CVS: Normal heart rate and rhythm. Pulses normal. Respiratory: No respiratory distress. Breath sounds normal. Abdomen: Soft and nontender. Skin: Skin warm and dry. Normal skin color. Extremities: No lower extremity edema. Neuro: Oriented X 3. No motor deficit. No sensory deficit. Course Course Course Narrative: labs are reassuring at this time Medications Administered Discontinued Medications Generic Name Dose Route Start Last Admin Trade Name Freq PRN Reason Stop Dose Admin Lorazepam 1 mg 04/06/24 21:19 04/06/24 21:39 Lorazepam 1 Mg Tablet PO 04/06/24 21:20 1 mg ONCE ONE Administration Medical Decision Making Medical Decision Making [facility] Narrative: 39 yo male with PMH of seizures on keppra and depakote reports compliance though last time I saw him in February there was a question of compliance, ETOH abuse, anxiety and depression who presents with c/o possible seizure though it does not sound convincing to me on exam and did not have tongue biting or incontinence. At this time will obtain basic labs, levels of AEDs, he has neurology appointment on Friday will start him on nightly 1mg ativan for sleep and he can follow up with his neurologist. No concern for ICH. Differential Diagnosis Differential Diagnoses: The differential diagnosis associated with the presentation includes anxiety, seizure Admission/Observation Consideration of admission/observation: Escalation of care including admission/observation considered at baseline stable for DC Lab Data [facility] Lab Attestation statement: I reviewed the patient's lab results. 04/06/24 20:46 04/06/24 20:46 Labs: Lab Results 04/06/24 04/06/24 Range/Units 20:42 20:46 WBC 7.5 (4.8-10.8) X10*3/uL RBC 4.90 (4.60-5.80) X10*6/uL Hgb 14.9 (14.0-18.0) g/dl Hct 42.5 (42.0-52.0) % MCV 86.7 (80.0-98.0) fL MCH 30.4 (27.0-33.0) pg MCHC 35.1 (31.0-36.0) g/dl RDW 12.3 (11.0-16.0) % Plt Count 284 (160-400) X10*3/uL MPV 9.5 (9.4-12.4) fL Immature Gran % (Auto) 0.4 (0.0-0.4) % Neut % (Auto) 65.1 (45-73) % Lymph % (Auto) 26.1 (20-40) % [place] % (Auto) 7.2 (2-11) % Eos % (Auto) 0.7 (0-4) % Baso % (Auto) 0.5 (0-2) % Lymph # (Auto) 2.0 (1.2-4.9) X10*3/uL [place] # (Auto) 0.5 (0.1-1.2) X10*3/uL Eos # (Auto) 0.1 (0.0-0.4) X10*3/uL Baso # (Auto) 0.0 (0.0-0.2) X10*3/uL Abs Immat Gran (auto) 0.03 (0.00-0.03) X10*3/uL Absolute Neuts (auto) 4.9 (2.0-8.3) x10*3/uL Absolute Nucleated RBC 0.000 (0.0-0.012) X10*3/uL Nucleated RBC % (auto) 0.0 (0.0-0.2) /100WBC Sodium 141 (135-145) mmol/L Potassium 3.8 (3.3-5.1) mmol/L Chloride 109 H (96-108) mmol/L Carbon Dioxide 23 (22-29) mmol/L Anion Gap 13 (12-20) BUN 17 H (9-16) mg/dL Creatinine 1.32 (0.5-1.4) mg/dL Estim Creat Clear Calc 86.8 Estimated GFR > 60 POC Glucose 105 (60-115) mg/dL Random Glucose 101 (60-115) mg/dL Calcium 9.1 (8.4-10.2) mg/dL Valproic Acid 22.2 L (50.0-100.0) mcg/mL Ethyl Alcohol < 10 mg/dL Independent Historian Clinical information obtained from an independent historian. History obtained from or confirmed by: Spouse and EMS External Record Review External record reviewed: Inpatient record Prescription Management I considered prescription management with: Other Discharge Plan Discharge Clinical Impression: Seizure disorder Patient Disposition: Home, Self-Care Instructions: Epilepsy (ED) Additional Instructions: continue your medications follow up with your doctor return for any worsening symptoms or concerns. please make your neurology appointment take all medications as prescribed. remember no driving, cooking over open flame, swimming alone labs reassuring Prescriptions: New lorazepam [Ativan] 1 mg tablet 1 mg PO BEDTIME PRN (Reason: anxiety) Qty: 7 0RF No Action divalproex 250 mg tablet,delayed release (DR/EC) 500 mg PO BID Qty: 270 3RF levetiracetam [Keppra] 1,000 mg tablet 1,000 mg PO BID 90 Days Qty: 180 1RF pantoprazole 40 mg tablet,delayed release (DR/EC) 40 mg PO DAILY 90 Days Qty: 90 0RF meloxicam 15 mg tablet 15 mg PO DAILY Qty: 30 0RF levetiracetam [Keppra] 1,000 mg tablet 1,500 mg PO BID Qty: 45 1RF trazodone 50 mg Tablet 50 mg PO BEDTIME 30 Days Qty: 30 0RF nicotine (polacrilex) 2 mg Gum 4 mg buccal Q2H PRN (Reason: Nicotine Cravings) 30 Days Qty: 180 0RF nicotine 21 mg/24 hr Patch 24 Hour 21 mg transdermal DAILY 28 Days Qty: 28 0RF escitalopram oxalate 20 mg Tablet 10 mg PO DAILY 30 Days Qty: 15 0RF acamprosate 333 mg Tablet,Delayed Release (Dr/Ec) 666 mg PO TID 30 Days Qty: 180 0RF Stand Alone Forms: Work/School Release Print Language: Slovenian
[2024-04-06 21:09] LABS: Anion Gap 13 (12-20); Blood Urea Nitrogen 17 mg/dL (9-16); Calcium 9.1 mg/dL (8.4-10.2); Carbon Dioxide 23 mmol/L (22-29); Chloride 109 mmol/L (96-108); Creatinine Clr Calc Pharmacy 86.8; Estimated Glomerular Filt Rate > 60; Ethanol < 10 mg/dL; Glucose Random 101 mg/dL (60-115); Potassium 3.8 mmol/L (3.3-5.1); Sodium 141 mmol/L (135-145)
[2024-04-06] MEDS: LORazepam 1 MG TABLET PO (21:39)
[2024-04-06 21:40] LABS: Valproate 22.2 mcg/mL (50.0-100.0)
[2024-04-06 21:53] VITALS: BP 116/61; PULSE 84; RESP 16; TEMP 36.8; O2SAT 95
[2024-04-06 22:05] VITALS: BP 116/61; PULSE 84; RESP 16; TEMP 36.8; O2SAT 95
[2024-04-10 16:23] LABS: Levetiracetam Keppra 32.8 mcg/mL (6.0-46.0)
== END 2024-04-06 22:05 | disposition home or self-care (01) ==
PROVIDERS: Emergency Provider Emergency Medicine; PCP Internal Medicine
DX: G40.409 Other generalized epilepsy and epileptic syndromes, not intractable, without status epilepticus (principal); F10.10 Alcohol abuse, uncomplicated; Y90.0 Blood alcohol level of less than 20 mg/100 ml; F41.9 Anxiety disorder, unspecified; K21.9 Gastro-esophageal reflux disease without esophagitis; F32.A Depression, unspecified; F17.210 Nicotine dependence, cigarettes, uncomplicated; Z79.899 Other long term (current) drug therapy
CPT/HCPCS: 36415; 80048; 80164; 80177; 80307; 82947; 85025; 99284

== ENCOUNTER 2024-04-12 12:43 | Outpatient (AMB) | payer OTHER, SELFPAY ==
--- NOTE | 2024-04-12 12:54 | MHC.OFFVIS ---
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 6 seizures in this past month Allergies No Known Allergies [No Known Allergies*] Allergy (Verified 04/12/24 12:55) Medication List - Last Reconciled 04/12/24 by TRAM Matthew divalproex 500 mg (2 x 250 mg) PO BID levetiracetam (Keppra) 1,500 mg (1.5 x 1,000 mg) PO BID levetiracetam (Keppra) 1,000 mg PO BID 90 days lorazepam (Ativan) 1 mg PO BEDTIME PRN meloxicam 15 mg PO DAILY nicotine 21 mg transdermal DAILY 28 days nicotine (polacrilex) 4 mg buccal Q2H PRN 30 days pantoprazole 40 mg PO DAILY 90 days HPI Comments Details: 39-yr-old male presents for new pt evaluation of seizure disorder, accompanied by his girlfriend. Pt reports he started having grand-mal seizure at age 29. 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 He has continued to have seizure since. He was originally f/b [facility] and neurosurgery, but was lost to f/u. He is currently on Keppra and Depakote. States he was tried on another AED before- maybe when he was 1st diagnosed w/ seizure- but not sure what or specific effect- maybe one triggered breakthrough seizure. Pt states that he has 2 seizures- a grand-mal seizure and a left-sided seizure w/o LOC. Pt reports his seizures have been increasing over the last several months. He is not sure why this is as is eating healthier, has quit alcohol- about 7 months ago, working on reducing smoking. He has had several ER evals for seizure. His Keppra was recently increased from 1000mg to 1500mg bid by [place] [facility] last month. He is taking Depakote 500mg bid. His last depakote level was 22 L (04/06/24 at [facility] He was recently restarted on Lorazepam 1mg qhs prn- pt states that this helps prevent seizures and anxiety- was given by the ER. He describes the milder left sided seizure as: Starts w/ a sense of emilie vu, feels like he is gasping for air, his breathing becomes more shallow, then left side of the body locks up, like a spams not a/w LOC- lasts at most 2-3 minutes, post-ictal left facial numbness and dizziness. If he has repeated attacks, the attacks will be stronger. Triggers for this include stress, lack of sleep, but he is not sure. He is having more of these episodes- up to 4-5 attacks in a day. His describes the grand-mal seizure as: He will feel like he is in a dream, has emilie vu, he will feel dizzy. He has LOC, mouth foaming, left leg shaking, tongue biting. No intraictal incontinence. The seizure lasts a few minutes, Takes him 20-30 minutes or so to come to. He has had 2 attacks in the last couple of weeks. Prior he had 2 attacks in the last year, and prior could go years w/o having grand-mal seizures. Pt does endorse snoring, fatigue, sleep difficulties. [facility] Medical History Alcohol use disorder History of benign brain tumor Generalized seizure Bipolar 1 disorder Obesity (BMI 30-39.9) Tobacco abuse GERD (gastroesophageal reflux disease) Anxiety and depression Seizure disorder Surgical History H/O brain surgery Family History Other No family history of coronary artery disease Substance use disorder Social History Household Members: None Housing: Apartment Do you presently have visiting nurse or other home services: No Alcohol intake: former Patient Tobacco Use Status: Former Tobacco user Tobacco use type: Cigarette Cigarette Packs Per Day: 1 Cigarettes Per Day: 20.0 Years Smoked: 15 e-Cigarette/Vaping Use: Never Used Second Hand Smoke Exposure: Yes Substance Use Type: Crack/Cocaine service: No Current occupational status: unemployed Sexual orientation: Straight/Heterosexual Cognitive needs: No Hearing needs: No Vision needs: No Physical Exam Vital Signs: Last Vital Signs Pulse 104 H 04/12/24 13:01 BP 112/80 04/12/24 13:01 Pulse Ox 96 04/12/24 13:01 Oxygen Delivery Method Room Air 04/12/24 13:01 BMI result Body Mass Index 31.7 Const Orientation/consciousness: patient oriented x3 HEENT Other: No palpable scalp tenderness. Head: Yes normocephalic Resp Effort & Inspection: normal respiratory effort and able to speak in complete sentences Neuro General: patient oriented x3 Cranial nerves: Yes CN's II-XII intact bilaterally Cognition (Neuro): normal cognition Gait exam (Neuro): Normal gait present Motor exam (neuro): 5/5 motor strength present throughout Deep tendon reflexes (DTR's): Right triceps reflex intensity grade: 2+, Left triceps reflex intensity grade: 2+, Rt Biceps (C5, C6): 2+, Left biceps reflex intensity grade: 2+, Right brachioradialis reflex intensity grade: 2+, Left brachioradialis reflex intensity grade: 2+, Right patellar reflex intensity grade: 2+ and Left patellar reflex intensity grade: 2+ Coordination: [id number] test normal Pupils: Normal pupillary reactivity/response: bilateral Psych Appearance: grossly normal Mental Status: mental status grossly normal Speech and movement: Normal speech and movement present Affect: normal affect Attitude: cooperative Thought process: Normal thought process present Assessment & Plan Assessment & Plan (1) Seizure disorder: Code(s): G40.909 - Epilepsy, unspecified, not intractable, without status epilepticus Category: Medical (2) History of oligodendroglioma of brain: Code(s): Z85.841 - Personal history of malignant neoplasm of brain Category: Medical (3) Seizure disorder: Code(s): G40.909 - Epilepsy, unspecified, not intractable, without status epilepticus Category: Medical (4) Snoring: Code(s): R06.83 - Snoring Category: Medical (5) Sleep difficulties: Code(s): G47.9 - Sleep disorder, unspecified Category: Medical (6) Fatigue: Code(s): R53.83 - Other fatigue Category: Medical Plan Pt advised to undergo: Brain MRI w/wo- to assess for central etiologies of increasing seizures. 72 EEG. HST- to assess for sleep apnea f/u CBC, CMP, depakote levels in 1 month. Continue Levetirectam 1500mg bid Increase Valproic acide from 500mg bid to 750mg bid. Continue Lorazepam 1mg qd prn anxiety/seizure. As pt is having breakthrough seizure activity while on 2 AEDs- will refer to epilepy clinic at [facility]. Pt asks us to complete FMLA paperwork- with plan for pt to return to work next week. Pt seen in collaboration w/ Dr Ilene Benton. Orders: Orders MR head/brain wo/w con Today G40.909 - Epilepsy, unspecified, not intractable, without status epilepticus, Z85.841 - Personal history of malignant neoplasm of brain EEG 72 Hours Today RT home sleep study Today G40.909 - Epilepsy, unspecified, not intractable, without status epilepticus, G47.9 - Sleep disorder, unspecified, R06.83 - Snoring, R53.83 - Other fatigue Complete Blood Count Auto Diff Today G40.909 - Epilepsy, unspecified, not intractable, without status epilepticus Comprehensive Met. Panel Today G40.909 - Epilepsy, unspecified, not intractable, without status epilepticus Valproate Today G40.909 - Epilepsy, unspecified, not intractable, without status epilepticus Referrals Neurology Referral G40.909 - Epilepsy, unspecified, not intractable, without status epilepticus, Z85.841 - Personal history of malignant neoplasm of brain Medications: New divalproex 750 mg (3 x 250 mg) PO BID 30 days 180 tabs 3RF Changed From lorazepam (Ativan) 1 mg PO BEDTIME PRN 7 tabs 0RF anxiety To lorazepam (Ativan) 1 mg PO ONCE 15 days PRN 15 tabs 0RF anxiety MDD 1 tab Discontinued divalproex Discontinued Reason: Doctor's Order 500 mg (2 x 250 mg) PO BID 270 tabs 3RF Coding Level of Care Code New Pt Level 4 (08855) Diagnoses Seizure disorder G40.909 History of oligodendroglioma of brain Z85.841 Snoring R06.83 Sleep difficulties G47.9 Fatigue R53.83
[2024-04-12 13:01] VITALS: BP 112/80; PULSE 104; O2SAT 96; BMI 31.7
== END 2024-04-12 14:10 | disposition home or self-care (01) ==
PROVIDERS: PCP Internal Medicine; Visit Provider Nurse Practitioner Family
DX: G40.909 Epilepsy, unspecified, not intractable, without status epilepticus (principal); Z85.841 Personal history of malignant neoplasm of brain; R06.83 Snoring; G47.9 Sleep disorder, unspecified; R53.83 Other fatigue
CPT/HCPCS: 99204

== ENCOUNTER → 2024-04-12 12:43 | Outpatient (BNVA) | payer OTHER, SELFPAY | PROVIDERS: PCP Internal Medicine; Visit Provider Nurse Practitioner Family | DX: G40.909 Epilepsy, unspecified, not intractable, without status epilepticus (principal); G47.9 Sleep disorder, unspecified; R06.83 Snoring; R53.83 Other fatigue; Z85.841 Personal history of malignant neoplasm of brain | CPT/HCPCS: 99202 ==

== ENCOUNTER → 2024-05-13 16:03 | Outpatient (REF) | payer OTHER, SELFPAY | LOC: HO.SL 16:03 | PROVIDERS: PCP Internal Medicine; Visit Provider Nurse Practitioner Family | DX: G47.33 Obstructive sleep apnea (adult) (pediatric) (principal); R06.83 Snoring | CPT/HCPCS: 95806 ==

== ENCOUNTER → 2024-05-13 16:08 | Outpatient (BNV) | payer OTHER, SELFPAY | PROVIDERS: PCP Internal Medicine; Visit Provider Psychiatry & Neurology Neurology | DX: G47.33 Obstructive sleep apnea (adult) (pediatric) (principal) | CPT/HCPCS: 95806 ==

== ENCOUNTER 2024-05-21 14:27 | Outpatient (AMB) | payer OTHER, SELFPAY ==
[2024-05-21 14:28] VITALS: BP 112/88; PULSE 95; O2SAT 96; BMI 32.3
--- NOTE | 2024-05-21 14:28 | MHC.PC.OV ---
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 Allergies No Known Allergies [No Known Allergies*] Allergy (Verified 05/21/24 14:29) Medication List - Last Reconciled 05/21/24 by Marilyn Myrick MD divalproex 750 mg (3 x 250 mg) PO BID 30 days levetiracetam (Keppra) 1,500 mg (1.5 x 1,000 mg) PO BID 30 days lorazepam (Ativan) 0.5 mg (1/2 x 1 mg) PO ONCE PRN 30 days MDD 1 tab meloxicam 15 mg PO DAILY pantoprazole 40 mg PO DAILY 90 days Tobacco use date assessed: 05/21/24 Dental Screening Dental Screen Date: 05/21/24 HPI seischarlotte HPI Details 39-year-old obese male smoker with a history of seizure disorder generalized anxiety disorder history of alcohol abuse coming in for follow-up. Last seen in 08/13/2023 patient had some low back pain and was advised physical therapy review of the notes had EEG done in 03/13/2024 showing within normal limits patient was also advised to get the brain MRI and get the sleep study done. On Keppra 1500 mg twice a day Depakote 750 mg twice a day and lorazepam as needed advised to get to see the epilepsy Clinic. 08/13/2023 patient was in the hospital alcohol use and depression with suicidal ideation. [employer] is asking for a leave of absence due to problem [facility] Medical History Alcohol use disorder History of benign brain tumor Generalized seizure Bipolar 1 disorder Obesity (BMI 30-39.9) Tobacco abuse GERD (gastroesophageal reflux disease) Anxiety and depression Seizure disorder Surgical History H/O brain surgery Family History Other No family history of coronary artery disease Substance use disorder Social History (Reviewed 04/12/24 @ 13:01 by YVES Cherry Household Members: None Housing: Apartment Do you presently have visiting nurse or other home services: No Alcohol intake: former Patient Tobacco Use Status: Former Tobacco user Tobacco use type: Cigarette Cigarette Packs Per Day: 1 Cigarettes Per Day: 20.0 Years Smoked: 15 e-Cigarette/Vaping Use: Never Used Second Hand Smoke Exposure: Yes Substance Use Type: Crack/Cocaine service: No Current occupational status: unemployed Sexual orientation: Straight/Heterosexual Cognitive needs: No Hearing needs: No Vision needs: No Questionnaire Thrive Questionnaire Date Thrive assessed: 08/20/23 AUDIT C Alcohol Use Questionnaire (AUDIT-C) 1. How often do you have a drink containing alcohol?: Never 2. How many drinks containing alcohol do you have on a typical day when you are drinking?: 1 or 2 Total Score: 0 SARANYA-7 AMB Questionnaire SARANYA-7 Date SARANYA - 7 assessed: 04/11/23 Source: Developed by Drs. Shade Clark, Paty Bernard, Joshua Henriquez and colleagues, with an educational maria elena from [employer]. Physical exam (Primary Care) Vital Signs: Last Vital Signs Pulse 95 05/21/24 14:28 BP 112/88 05/21/24 14:28 Pulse Ox 96 05/21/24 14:28 Oxygen Delivery Method Room Air 05/21/24 14:28 BMI result Body Mass Index 32.3 Tobacco/Smoking Status: Tobacco use Status Tobacco use date assessed 05/21/24 05/21/24 14:29 Patient Tobacco Use Status Former Tobacco user 05/21/24 14:28 Tobacco use type Cigarette 05/21/24 14:28 e-Cigarette/Vaping Use Never Used 05/21/24 14:28 Thrive Assessment: Date of Thrive Assessment Date Thrive assessed 08/20/23 05/21/24 14:28 Const General: alert; No acute distress Eyes Conjunctivae: conjunctivae normal Resp Auscultation: clear to auscultation bilaterally Cardio Rate: regular rate Rhythm: regular rhythm GI Inspection: Yes normal to inspection Extrem General: Yes normal to inspection and No edema Assessment and Plan Assessment & Plan (1) Obesity (BMI 30-39.9): Code(s): E66.9 - Obesity, unspecified Plan: Diet and exercise (2) Tobacco abuse: Comment: Stop smoking 02/2023 Code(s): Z72.0 - Tobacco use Plan: Patient is strongly advised to stop smoking!! stopped smoking 02/2023 (3) GERD (gastroesophageal reflux disease): Code(s): K21.9 - Gastro-esophageal reflux disease without esophagitis Qualifiers: Esophagitis presence: without esophagitis Qualified Code(s): K21.9 - Gastro-esophageal reflux disease without esophagitis Plan: Avoid the foods that causes that usually spicy foods, tomato products, juices, coffee, soda and foods that your sensitive to. After eating do not lie down, allow 3-4 hours before in lie down. And keep the head of bed above 30 degrees to avoid the acid from going up. Patient is advised to stop smoking! (4) Seizure disorder: Code(s): G40.909 - Epilepsy, unspecified, not intractable, without status epilepticus Plan: Patient had a EEG done revealing negative results meanwhile follows up with Neurology and has been placed on Keppra lorazepam Depakote.. Patient has an upcoming MRI of the brain (5) Depressive disorder: Code(s): F32.A - Depression, unspecified Plan: Noted to have had an admission for suicidal ideation. On lorazepam. (6) Alcohol abuse: Comment: stopped 07/2024 Code(s): F10.10 - Alcohol abuse, uncomplicated Plan: Congratulations!! Orders: Orders Valproate Today G40.909 - Epilepsy, unspecified, not intractable, without status epilepticus Levetiracetam Keppra Today G40.909 - Epilepsy, unspecified, not intractable, without status epilepticus Medications: Changed From lorazepam (Ativan) 1 mg PO ONCE 30 days PRN 30 tabs 0RF anxiety MDD 1 tab To lorazepam (Ativan) 0.5 mg (1/2 x 1 mg) PO ONCE 30 days PRN 30 tabs 0RF anxiety MDD 1 tab Discontinued nicotine (polacrilex) Discontinued Reason: Patient Completed Course 4 mg buccal Q2H 30 days PRN 180 ea 0RF Nicotine Cravings nicotine Discontinued Reason: Patient Completed Course 21 mg transdermal DAILY 28 days 28 ea 0RF Coding Level of Care Code Est Pt Level 4 (08614) Diagnoses Obesity (BMI 30-39.9) E66.9 Tobacco abuse Z72.0 Gastroesophageal reflux disease without esophagitis K21.9 Esophagitis presence: without esophagitis Seizure disorder G40.909 Depressive disorder F32.A Alcohol abuse F10.10
== END 2024-05-21 15:15 | disposition home or self-care (01) ==
PROVIDERS: PCP Internal Medicine; Visit Provider Internal Medicine
DX: G40.909 Epilepsy, unspecified, not intractable, without status epilepticus (principal); Z68.32 Body mass index [BMI] 32.0-32.9, adult; E66.9 Obesity, unspecified; K21.9 Gastro-esophageal reflux disease without esophagitis; Z72.0 Tobacco use; F32.A Depression, unspecified; F10.10 Alcohol abuse, uncomplicated
CPT/HCPCS: 99214

== ENCOUNTER 2024-05-31 15:48 | Outpatient (REF) | payer OTHER, SELFPAY ==
--- NOTE | ~2024-05-31 | MR_ITS ---
EXAMINATION: MR BRAIN WITHOUT AND WITH CONTRAST CLINICAL INFORMATION: Intractable epilepsy. COMPARISON: CT head and cervical spine 08/17/2023. TECHNIQUE: Multiplanar MR imaging of the brain was performed without and with contrast. A total of 10 mL Gadavist was utilized for this examination. FINDINGS: There are chronic postoperative changes within the right supratentorial compartment with partial resection of the right frontal and parietal lobes. 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 There is no pathological enhancement demonstrated on postcontrast images. No intracranial mass effect or midline shift. No hydrocephalus. Midline structures including the cervicomedullary junction are normal. No acute bone marrow signal changes. There is no acute territorial infarct. No pathological magnetic susceptibility artifact. Intracranial vascular flow voids are maintained. There is no mastoid middle ear effusion. Multiple retention cysts within the recess of the left maxillary sinus and mild mucosal thickening within the ethmoid air cells. Globes and orbits are symmetric. MR/MR head/brain wo/w con IMPRESSION: There are chronic postoperative changes within the right supratentorial compartment with a surgical resection cavity at the junction of the right frontal and parietal lobes. 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 No pathological enhancement is demonstrated on postcontrast images. Comparison with prior imaging is recommended if available. No substantial intracranial mass effect or hydrocephalus.
[2024-05-31] MEDS: gadobutroL 10 ML VIAL IVPUSH (16:55)
== END 2024-05-31 15:49 | disposition home or self-care (01) ==
LOC: HO.MRI 15:48
PROVIDERS: PCP Internal Medicine; Visit Provider Nurse Practitioner Family
DX: G40.909 Epilepsy, unspecified, not intractable, without status epilepticus (principal); Z85.841 Personal history of malignant neoplasm of brain
CPT/HCPCS: 70553; A9585

== ENCOUNTER 2024-07-23 13:47 | Outpatient (AMB) | payer OTHER, SELFPAY ==
--- NOTE | 2024-07-23 13:51 | MHC.OFFVIS ---
Vital Signs 07/23/24 13:54 Height 5 ft 9 in Weight 199 lb BMI 29.4 BP 118/78 Blood Pressure Location Rt brachial Position Sitting Pulse 95 Pulse Source Pulse Oximeter Pulse Oximetry (%) 97 Oxygen Delivery Method Room Air Intake Visit Reasons: 3 month f/u Intake Note: Patient presents for 3 month follow up. patient still having the seizure actually getting worst has been loosing weight by dieting and excercising. patient last seizure this morning. Allergies No Known Allergies [No Known Allergies*] Allergy (Verified 07/23/24 13:56) Medication List - Last Reconciled 07/23/24 by TRAM Matthew divalproex 750 mg (3 x 250 mg) PO BID 30 days levetiracetam (Keppra) 1,500 mg (1.5 x 1,000 mg) PO BID 30 days lorazepam (Ativan) 0.5 mg (1/2 x 1 mg) PO ONCE PRN 30 days MDD 1 tab meloxicam 15 mg PO DAILY pantoprazole 40 mg PO DAILY 90 days HPI Comments Details: 39-yr-old male presents for f/u visit of seizure Pt denies any significant interval medical changes. Pt reports he has had intentional weight loss- through diet, limiting but not avoiding carbs. Also exercising more- walking, some weight training, calisthenics. 72 EEG was unremarkable. 05/31/24, MR/MR head/brain wo/w con IMPRESSION: There are chronic postoperative changes within the right supratentorial compartment with a surgical resection cavity at the junction of the right frontal and parietal lobes. 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 No pathological enhancement is demonstrated on postcontrast images. Comparison with prior imaging is recommended if available. No substantial intracranial mass effect or hydrocephalus. Upon review of the brain MRI report, we did refer pt back to [facility] [place]. Pt states he has an appt in Aug. It is unclear if this appt is w/ neurosurgery or w/ the epilepsy clinci as pt has started to see them as well. Note at last [facility] neurology visit, pt was asked to have labs/levels drawn, however he has not done these yet. He states he is having increased in his left sided seizures. He states he has been having days w/ up to 4 seizures in a day. After the seizures, he feels jittery and has cognitive difficulties. Pt states he had a seizure during the 2nd day of the EEG. He has not had a full convulsive seizure. He is having more intense right side migraines, like before he had his brain surgery. The migraine headache is a pressure in right side a/w photophobia, phonophobia, nausea, difficult to breathe. The migraine can come before the seizures. lasts 45 minutes if he can sit and relax, or can last all day. Initial HPI, 04/12/24: He describes the milder left sided seizure as: Starts w/ a sense of emilie vu, feels like he is gasping for air, his breathing becomes more shallow, then left side of the body locks up, like a spams not a/w LOC- lasts at most 2-3 minutes, post-ictal left facial numbness and dizziness. If he has repeated attacks, the attacks will be stronger. Triggers for this include stress, lack of sleep, but he is not sure. He is having more of these episodes- up to 4-5 attacks in a day. His describes the grand-mal seizure as: He will feel like he is in a dream, has emilie vu, he will feel dizzy. He has LOC, mouth foaming, left leg shaking, tongue biting. No intraictal incontinence. The seizure lasts a few minutes, Takes him 20-30 minutes or so to come to. He has had 2 attacks in the last couple of weeks. Prior he had 2 attacks in the last year, and prior could go years w/o having grand-mal seizures. [facility] Medical History Alcohol use disorder History of benign brain tumor Generalized seizure Bipolar 1 disorder Obesity (BMI 30-39.9) Tobacco abuse GERD (gastroesophageal reflux disease) Anxiety and depression Seizure disorder Surgical History H/O brain surgery Family History Other No family history of coronary artery disease Substance use disorder Social History Household Members: None Housing: Apartment Do you presently have visiting nurse or other home services: No Alcohol intake: former Patient Tobacco Use Status: Former Tobacco user Tobacco use type: Cigarette Cigarette Packs Per Day: 1 Cigarettes Per Day: 20.0 Years Smoked: 15 e-Cigarette/Vaping Use: Never Used Second Hand Smoke Exposure: Yes Substance Use Type: Crack/Cocaine service: No Current occupational status: unemployed Sexual orientation: Straight/Heterosexual Cognitive needs: No Hearing needs: No Vision needs: No Physical Exam Vital Signs: Last Vital Signs Pulse 95 07/23/24 13:54 BP 118/78 07/23/24 13:54 Pulse Ox 97 07/23/24 13:54 Oxygen Delivery Method Room Air 07/23/24 13:54 BMI result Body Mass Index 29.4 Const General: cooperative and no acute distress Orientation/consciousness: patient oriented x3 Resp Effort & Inspection: normal respiratory effort and able to speak in complete sentences Neuro General: patient oriented x3 Cranial nerves: Yes CN's II-XII intact bilaterally Cognition (Neuro): normal cognition Psych Appearance: grossly normal Mental Status: mental status grossly normal Speech and movement: Normal speech and movement present Affect: normal affect Attitude: cooperative Assessment & Plan Assessment & Plan (1) Seizure disorder: Code(s): G40.909 - Epilepsy, unspecified, not intractable, without status epilepticus Category: Medical (2) Migraine without aura: Code(s): G43.009 - Migraine without aura, not intractable, without status migrainosus Category: Medical Plan Reviewed 72 EEH, unremarkable. Pt states he did have an abscence seizure during 2nd day of stiudy. Reviewed brain MRI w/o- results suggestive of a presence of a low-grade glial tumori setting of known chronic postoperative changes within the right supratentorial compartment with a surgical resection cavity at the junction of the right frontal and parietal lobes. Will confirm w/ [facility] f/u epilepsy and neurosurgery consult appointments. Pt advised to have blood work drawn as ordered. Continue Levetirectam 1500mg bid Continue Valproic acid 750mg bid. Continue Lorazepam 1mg qd prn anxiety/seizure. FGor acute migraine tx: Trial Ubrogepant (Ubrelvy) 100mg tab, 1/2 - 1 tab (50-100mg) at onset of headache, may repeat in 2 hours. Max of 2 tabs (200mg) per 24 hours. May adjunct with OTC Tylenol 650mg q 4 hours, Ibuprofen 600mg q 6 hours, or Naproxen 440mg q 12 hrs prn. Do not take w/ Butalbital (Fioricet or Fiorinal). Potential adverse effects, include but are not limited to fatigue, nausea, dry mouth, constipation Migraine tx contraindications- symptomatic seizure d/o. For migraine prevention: Depakote- ordered for seizure control. Medications: New ubrogepant (Ubrelvy) take at onset of migraine, may repeat in 2hrs (may take w/ Ibuprofen) 50 - 100 mg (0.5 - 1 x 100 mg) PO ONCE PRN 16 tabs 3RF migraine headache 30 days Coding Level of Care Code Est Pt Level 4 (93435) Diagnoses Seizure disorder G40.909 Migraine without aura G43.009
[2024-07-23 13:54] VITALS: BP 118/78; PULSE 95; O2SAT 97; BMI 29.4
== END 2024-07-23 14:42 | disposition home or self-care (01) ==
PROVIDERS: PCP Internal Medicine; Visit Provider Nurse Practitioner Family
DX: G40.909 Epilepsy, unspecified, not intractable, without status epilepticus (principal); G43.009 Migraine without aura, not intractable, without status migrainosus
CPT/HCPCS: 99214

== ENCOUNTER → 2024-07-23 13:47 | Outpatient (BNVA) | payer OTHER, SELFPAY | PROVIDERS: PCP Internal Medicine; Visit Provider Nurse Practitioner Family | DX: G40.909 Epilepsy, unspecified, not intractable, without status epilepticus (principal); G43.009 Migraine without aura, not intractable, without status migrainosus | CPT/HCPCS: 99212 ==

== ENCOUNTER 2024-08-24 06:20 | Emergency (ER) | payer OTHER, SELFPAY ==
--- NOTE | 2024-08-24 | ECG_ITS ---
Test Reason : SEIZURE Blood Pressure : / mmHG Vent. Rate : 098 BPM Atrial Rate : 098 BPM P-R Int : 150 ms QRS Dur : 102 ms QT Int : 350 ms P-R-T Axes : 031 039 065 degrees QTc Int : 446 ms Normal sinus rhythm Normal ECG When compared with ECG of 17-AUG-2023 11:40, No significant change was found Referred By: Generic ED Physician Electronically Signed By:COREY RUSHING
[2024-08-24 06:30] VITALS: BMI 28.6
[2024-08-24 06:33] VITALS: BP 125/71; PULSE 111; RESP 22; TEMP 37.2; O2SAT 98
[2024-08-24] MEDS: LORazepam 2 MG/ML VIAL IVPUSH (06:46)
--- NOTE | 2024-08-24 06:47 | PC.NURSE ---
pt given 2mg ativan with was an override from pyxis d/t pt feeling a seizure coming on. Verbal order read back from md benavidez
--- NOTE | 2024-08-24 07:03 | ED_ITS ---
HPI - General Adult General Chief complaint: Seizure Stated complaint: SEIZURE Time Seen by Provider: 08/24/24 07:03 History of Present Illness ED Provider: Kristyn GONZALEZ narrative: The patient is a 39-year-old male. 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 He has a seizure disorder and is maintained on levetiracetam and valproic acid. He says that some point this morning he got up to get some food and went to his kitchen. He then felt some strange feelings in his body that were typical of how he feels before he has a seizure. He apparently then had a seizure. His roommate called 911. The patient has no recollection of being transported to the ambulance or the hospital. He thinks he has bitten his tongue. He had no incontinence. Does not think he sustained any significant injuries from the seizure other than the tongue biting. He says that he has been compliant with his current medication regimen. He estimates this is his 3rd or 4th breakthrough seizure this year. Related Data Previous Rx's ?Medication ?Instructions ?Recorded levetiracetam 1,000 mg tablet 1,500 mg (1.5 x 1,000 mg) PO BID 04/26/24 (Keppra) 30 days #90 tabs divalproex 250 mg tablet,delayed 750 mg (3 x 250 mg) PO BID 30 days 06/17/24 release #180 tabs meloxicam 15 mg tablet 15 mg PO DAILY #30 tabs 06/17/24 pantoprazole 40 mg tablet,delayed 40 mg PO DAILY 90 days #90 tabs 07/05/24 release ubrogepant 100 mg tablet (Ubrelvy) 50 - 100 mg (0.5 - 1 x 100 mg) PO 07/23/24 ONCE PRN migraine headache 30 days #16 tabs lorazepam 1 mg tablet (Ativan) 0.5 mg (1/2 x 1 mg) PO ONCE PRN 08/02/24 anxiety 30 days #30 tabs Allergies Allergy/AdvReac Type Severity Reaction Status Date / Time No Known Allergies Allergy Verified 08/24/24 06:32 [No Known Allergies*] Review of Systems 2 Review of Systems: Yes all other systems are reviewed and are negative PMFSH Past Medical History Medical History Alcohol use disorder History of benign brain tumor Generalized seizure Bipolar 1 disorder Obesity (BMI 30-39.9) Tobacco abuse GERD (gastroesophageal reflux disease) Anxiety and depression Seizure disorder Surgical History H/O brain surgery Family History Family History Other No family history of coronary artery disease Substance use disorder Social History Social History Household Members: None Housing: Apartment Do you presently have visiting nurse or other home services: No Alcohol intake: former Patient Tobacco Use Status: Former Tobacco user Tobacco use type: Cigarette Cigarette Packs Per Day: 1 Cigarettes Per Day: 20.0 Years Smoked: 15 Smoked in Last 30 Days: No e-Cigarette/Vaping Use: Never Used Second Hand Smoke Exposure: Yes Use of substances other than those prescribed or required for medical reasons: No Substance Use Type: Crack/Cocaine Advance Directives: No Advance Directives Information Provided: Yes Do you have a plan to hurt others: No Plan service: No Current occupational status: unemployed Sexual orientation: Straight/Heterosexual Cognitive needs: No Hearing needs: No Vision needs: No Physical Exam ED Vital Signs: Vital Signs - 24 hr 08/24/24 06:33 08/24/24 09:15 Temperature 98.9 F 0 F L Pulse Rate 111 H 83 Respiratory Rate 22 H 18 Blood Pressure 125/71 106/72 Pulse Oximetry 98 98 Oxygen Delivery Method Room Air Room Air BMI result Body Mass Index 28.6 Const Other: The patient is a 39-year-old male. He is awake and alert. He looks somewhat fatigued. Does not seem ill or in distress otherwise. Mental status seems clear. HENMT Other: The patient has a surgical scar in the right side of his scalp. He has some mild bruising to the right side of his tongue. Eyes Other: Pupils are round equal, conjunctivae are clear, extraocular moments intact Neck Other: No C-spine tenderness. He is moving his neck easily. Resp Effort & Inspection: normal respiratory effort Auscultation: clear to auscultation bilaterally Cardio Rate: regular rate Rhythm: regular rhythm Heart sounds: S1 normal heart sound present and S2 normal heart sound present GI Other: Abdomen is soft and nontender Skin Other: Skin is dry and unremarkable Neuro Other: The patient is awake and alert. He is appropriately oriented. Cognition seems normal. Cranial nerves are grossly intact. He moves his extremities symmetrically. Extrem Other: No injuries to the extremities Medications Administered Discontinued Medications Generic Name Dose Route Start Last Admin Trade Name Lizzy PRN Reason Stop Dose Admin Divalproex Sodium 750 mg 08/24/24 07:13 08/24/24 08:12 Divalproex Sodium Er 250 Mg Tab.Er.24h PO 08/24/24 07:14 750 mg ONCE ONE Administration Levetiracetam 1,500 mg in 100 mls @ 400 mls/hr 08/24/24 07:13 08/24/24 08:12 Keppra IV 08/24/24 07:27 400 mls/hr ONCE ONE Administration Lorazepam 2 mg 08/24/24 06:41 08/24/24 06:46 Lorazepam 2 Mg/Ml Vial IVPUSH 08/24/24 06:42 2 mg ONCE ONE Administration Medical Decision Making Medical Decision Making [facility] Narrative: The patient is a 39-year-old with a history of a seizure disorder. He has a history of brain surgery 10 years ago for oligodendroglioma. His seizures are treated with levetiracetam 1500 b.i.d. and divalproex 750 mg b.i.d.. The patient has what seems to have been a breakthrough seizure today. He reports no lack of compliance with his medications. He has some slight bruising to the right side of his tongue but no other signs of injury and no other signs of illness. He does not exhibit any neurological deficits. His valproic acid level today is slightly subtherapeutic at 38.9. The patient was given an IV dose of levetiracetam. He was given his usual 750 mg of oral divalproex. He was observed. He was stable. He will be discharged to contact his neurologist for additional advice about his antiepileptics. Lab Data 08/24/24 07:46 08/24/24 07:46 Labs: Lab Results 08/24/24 Range/Units 07:46 WBC 9.7 (4.8-10.8) X10*3/uL RBC 4.91 (4.60-5.80) X10*6/uL Hgb 15.2 (14.0-18.0) g/dl Hct 43.2 (42.0-52.0) % MCV 88.0 (80.0-98.0) fL MCH 31.0 (27.0-33.0) pg MCHC 35.2 (31.0-36.0) g/dl RDW 12.3 (11.0-16.0) % Plt Count 289 (160-400) X10*3/uL MPV 9.4 (9.4-12.4) fL Immature Gran % (Auto) 0.4 (0.0-0.4) % Neut % (Auto) 83.9 H (45-73) % Lymph % (Auto) 9.3 L (20-40) % Moffat % (Auto) 6.0 (2-11) % Eos % (Auto) 0.2 (0-4) % Baso % (Auto) 0.2 (0-2) % Lymph # (Auto) 0.9 L (1.2-4.9) X10*3/uL Moffat # (Auto) 0.6 (0.1-1.2) X10*3/uL Eos # (Auto) 0.0 (0.0-0.4) X10*3/uL Baso # (Auto) 0.0 (0.0-0.2) X10*3/uL Abs Immat Gran (auto) 0.04 H (0.00-0.03) X10*3/uL Absolute Neuts (auto) 8.2 (2.0-8.3) x10*3/uL Absolute Nucleated RBC 0.000 (0.0-0.012) X10*3/uL Nucleated RBC % (auto) 0.0 (0.0-0.2) /100WBC Sodium 139 (135-145) mmol/L Potassium 4.6 D (3.3-5.1) mmol/L Chloride 108 (96-108) mmol/L Carbon Dioxide 26 (22-29) mmol/L Anion Gap 10 L (12-20) BUN 11 (9-16) mg/dL Creatinine 1.11 (0.5-1.4) mg/dL Estim Creat Clear Calc 99.0 Estimated GFR > 60 Random Glucose 98 (60-115) mg/dL Calcium 9.5 (8.4-10.2) mg/dL Total Bilirubin 0.4 (0.0-1.0) mg/dL Direct Bilirubin 0.1 (0.0-0.5) mg/dL AST 55 H (5-37) U/L ALT 27 (0-40) U/L Alkaline Phosphatase 44 (39-117) U/L Total Protein 6.7 (6.5-8.0) g/dL Albumin 3.8 (3.5-5.0) g/dL Valproic Acid 38.9 L (50.0-100.0) mcg/mL Independent Interpretation I performed an independent interpretation of an: EKG Interpretation: EKG at 0630 shows normal sinus rhythm at 98 beats per minute. It is a normal EKG. Discharge Plan Discharge Clinical Impression: Breakthrough seizure Patient Disposition: Home, Self-Care Additional Instructions: You received your regular dose of levetiracetam 1500 mg here in the emergency room today. You received this as an IV dose. You also received 750 mg of Depakote, your usual morning dose. Please resume your normal dosing at home. Please contact your neurologist today to discuss that you had a breakthrough seizure and whether your dosages should be adjusted. Your Depakote level was slightly subtherapeutic. Return to the emergency room if significantly worse. Prescriptions: No Action levetiracetam [Keppra] 1,000 mg tablet 1,500 mg PO BID 30 Days Qty: 90 6RF meloxicam 15 mg tablet 15 mg PO DAILY Qty: 30 0RF divalproex 250 mg tablet,delayed release (DR/EC) 750 mg PO BID 30 Days Qty: 180 2RF pantoprazole 40 mg tablet,delayed release (DR/EC) 40 mg PO DAILY 90 Days Qty: 90 0RF lorazepam [Ativan] 1 mg tablet 0.5 mg PO ONCE MDD 1 tab PRN (Reason: anxiety) 30 Days Qty: 30 0RF Ubrelvy 100 mg tablet 50 - 100 mg PO ONCE PRN (Reason: migraine headache) 30 Days Qty: 16 3RF Rx Instructions: take at onset of migraine, may repeat in 2hrs (may take w/ Ibuprofen) Referrals: Jeannette Parsons FNP [Nurse Practitioner] - (breakthrough seizure) Interventions: ED Discharge Assessment Last Done: 08/24/24 09:15 Discharge Date/Time: 08/24/24 09:16 Print Language: Gambian
[2024-08-24 07:51] LABS: MANUAL DIFF FLAG NO
[2024-08-24 07:54] LABS: Basophils Percent Auto 0.2 % (0-2); Eosinophils Percent Auto 0.2 % (0-4); Hematocrit 43.2 % (42.0-52.0); Hemoglobin 15.2 g/dl (14.0-18.0); Imm Gran Abs Auto 0.04 X10*3/uL (0.00-0.03); Imm Gran Pct Auto 0.4 % (0.0-0.4); Lymphocytes Absolute Auto 0.9 X10*3/uL (1.2-4.9); Lymphocytes Percent Auto 9.3 % (20-40); Mean Corpuscular HGB Conc 35.2 g/dl (31.0-36.0); Mean Platelet Volume 9.4 fL (9.4-12.4); Monocytes Absolute Auto 0.6 X10*3/uL (0.1-1.2); Neutrophils Absolute Auto 8.2 x10*3/uL (2.0-8.3); Neutrophils Percent Auto 83.9 % (45-73); Platelet Count 289 X10*3/uL (160-400); Red Blood Count 4.91 X10*6/uL (4.60-5.80); Red Cell Distribution Width 12.3 % (11.0-16.0); White Blood Count 9.7 X10*3/uL (4.8-10.8)
[2024-08-24 08:08] LABS: Valproate 38.9 mcg/mL (50.0-100.0)
[2024-08-24 08:12] LABS: Alanine Aminotransferase 27 U/L (0-40); Albumin Level 3.8 g/dL (3.5-5.0); Alkaline Phosphatase 44 U/L (39-117); Anion Gap 10 (12-20); Aspartate Amino Transferase 55 U/L (5-37); Bilirubin Direct 0.1 mg/dL (0.0-0.5); Bilirubin Total 0.4 mg/dL (0.0-1.0); Blood Urea Nitrogen 11 mg/dL (9-16); Calcium 9.5 mg/dL (8.4-10.2); Carbon Dioxide 26 mmol/L (22-29); Chloride 108 mmol/L (96-108); Estimated Glomerular Filt Rate > 60; Glucose Random 98 mg/dL (60-115); Potassium 4.6 mmol/L (3.3-5.1); Sodium 139 mmol/L (135-145); Total Protein 6.7 g/dL (6.5-8.0)
[2024-08-24] MEDS: Divalproex Sodium ER 250 MG TAB.ER.24H 750 MG PO (08:12)
[2024-08-24] MEDS: levETIRAcetam in NaCl (iso-os) 1,500 MG/100 ML PIGGYBACK 400 MG IV (08:12)
[2024-08-24 09:15] VITALS: BP 106/72; PULSE 83; RESP 18; TEMP -17.7; TEMP 0; O2SAT 98
[2024-08-26 20:09] LABS: Levetiracetam Keppra 21.8 mcg/mL (6.0-46.0)
== END 2024-08-24 09:16 | disposition home or self-care (01) ==
PROVIDERS: Emergency Provider Emergency Medicine
DX: G40.919 Epilepsy, unspecified, intractable, without status epilepticus (principal); Z79.899 Other long term (current) drug therapy
CPT/HCPCS: 36415; 80048; 80076; 80164; 80177; 85025; 93005; 96374; 96375; 99284; 99285; J1953; J2060

== ENCOUNTER 2024-08-28 06:55 | Emergency (ER) | payer OTHER, SELFPAY ==
--- NOTE | ~2024-08-28 | CT_ITS ---
EXAMINATION: CT HEAD WITHOUT CONTRAST CLINICAL INFORMATION: Status post surgery. COMPARISON: MR brain without and with contrast 05/31/2024. TECHNIQUE: Contiguous axial imaging was performed from the skull base to vertex without intravenous administration of contrast. This CT examination was performed using dose optimization techniques as appropriate, variously including the following: *Automated exposure control *Adjustment of mA and/or kV according to patient size (this includes techniques or standardized protocols for targeted exams where dose is matched to indication/reason for exam; i.e. extremities or head) *Use of iterative reconstruction technique DLP: 692 mGy-cm FINDINGS: There are chronic postoperative changes of a right craniotomy. There is a small surgical cavity located within the right frontal lobe. There is a slightly expansile mass at the superior aspect of the surgical cavity with a few intralesional calcifications are coincides with the findings demonstrated on the recent brain MRI from 05/31/2024. There is no intracranial mass effect or midline shift. No hydrocephalus. Watts-white matter differentiation is grossly preserved and there is no evidence of acute territorial infarct. The calvarium and skull base are grossly intact. Mastoid air cells and middle ear cavities are well aerated. No active paranasal sinus disease. CT/CT head/brain wo IV con IMPRESSION: There are chronic postoperative changes of a right craniotomy. Grossly stable appearance of a small surgical cavity located within the right frontal lobe. There is a slightly expansile mass at the superior aspect of the surgical cavity with a few intralesional calcifications that coincides with the findings demonstrated on the recent brain MRI from 05/31/2024. No intracranial mass effect or hydrocephalus. Electronically signed by: Shade Antonio MD 08/28/2024 08:54 AM EDT
[2024-08-28 07:06] VITALS: BP 109/52; BP 122/87; PULSE 70; PULSE 76; RESP 20; TEMP 37; O2SAT 98; O2SAT 99; BMI 31.2
--- NOTE | 2024-08-28 07:09 | ED_ITS ---
HPI - General Adult General Chief complaint: Seizure Stated complaint: pre sz activity,h/o epilepsy per ems Time Seen by Provider: 08/28/24 07:01 Source: patient Mode of arrival: ambulatory Limitations: no limitations History of Present Illness ED Provider: dallas GONZALEZ narrative: Patient is 39 years old with history of oligodendroglioma status post brain surgery about 10 years ago been having seizure since maintain on Keppra 1500 mg twice a day and Depakote 750 mg twice claims that been having pre seizure-like activity to 3 times for some time but had only for breakthrough seizure today patient came as he woke up from sleep felt like throat is closing felt like going to have seizure but did not have the full-blown seizure patient also take lorazepam 0.5 mg 2 times a day patient denied any sleep deprivation complaining of increased stress lately was started on yUbrogepant for migraine last 1 which patient did not take it as a felt that it may be making him having seizure does complain of headache off and on patient has had MRI 06/16 and recurrence of oligodendroglioma was noticed plan to see neurosurgeon for further management Related Data Previous Rx's ?Medication ?Instructions ?Recorded levetiracetam 1,000 mg tablet 1,500 mg (1.5 x 1,000 mg) PO BID 04/26/24 (Keppra) 30 days #90 tabs divalproex 250 mg tablet,delayed 750 mg (3 x 250 mg) PO BID 30 days 06/17/24 release #180 tabs meloxicam 15 mg tablet 15 mg PO DAILY #30 tabs 06/17/24 pantoprazole 40 mg tablet,delayed 40 mg PO DAILY 90 days #90 tabs 07/05/24 release ubrogepant 100 mg tablet (Ubrelvy) 50 - 100 mg (0.5 - 1 x 100 mg) PO 07/23/24 ONCE PRN migraine headache 30 days #16 tabs lorazepam 1 mg tablet (Ativan) 0.5 mg (1/2 x 1 mg) PO ONCE PRN 08/02/24 anxiety 30 days #30 tabs Allergies Allergy/AdvReac Type Severity Reaction Status Date / Time No Known Allergies Allergy Verified 08/28/24 07:07 [No Known Allergies*] Review of Systems Review of Systems: Yes all other systems are reviewed and are negative PMFSH Past Medical History Medical History Alcohol use disorder History of benign brain tumor Generalized seizure Bipolar 1 disorder Obesity (BMI 30-39.9) Tobacco abuse GERD (gastroesophageal reflux disease) Anxiety and depression Seizure disorder Surgical History H/O brain surgery Family History Family History Other No family history of coronary artery disease Substance use disorder Social History Social History Household Members: None Housing: Apartment Do you presently have visiting nurse or other home services: No Alcohol intake: former Patient Tobacco Use Status: Former Tobacco user Tobacco use type: Cigarette Cigarette Packs Per Day: 1 Cigarettes Per Day: 20.0 Years Smoked: 15 Smoked in Last 30 Days: No e-Cigarette/Vaping Use: Never Used Second Hand Smoke Exposure: Yes Use of substances other than those prescribed or required for medical reasons: No Substance Use Type: Crack/Cocaine Advance Directives: No Advance Directives Information Provided: No Do you have a plan to hurt others: No Plan service: No Current occupational status: unemployed Sexual orientation: Straight/Heterosexual Cognitive needs: No Hearing needs: No Vision needs: No Physical Exam ED Vital Signs: Vital Signs - 24 hr 08/28/24 07:06 08/28/24 09:38 Temperature 98.6 F 97.6 F Pulse Rate 76 82 Respiratory Rate 20 16 Blood Pressure 109/52 L 117/73 Pulse Oximetry 98 98 Oxygen Delivery Method Room Air Room Air BMI result Body Mass Index 31.2 Appearance: Alert. Oriented X3. No acute distress. Eyes: PERRLA, No Nystagmus ENT: Pharynx normal. Oral Mucosa moist Neck: Normal inspection. Neck supple. CVS: Normal heart rate and rhythm. Pulses normal. Respiratory: No respiratory distress. Equal air entry bilateral, no wheezing/rales/rhonchi Abdomen: Soft and nontender. Bowel sounds are present, no mass palpable, no CVA tenderness Skin: Skin warm and dry. Normal skin color. Normal skin turgor. Extremities: No lower extremity edema. No calf tenderness Neuro: Oriented X 3. No motor deficit. No sensory deficit.No cerebellar signs , cranial nerves II-XII intact Medications Administered Discontinued Medications Generic Name Dose Route Start Last Admin Trade Name Freq PRN Reason Stop Dose Admin Divalproex Sodium 500 mg 08/28/24 07:20 08/28/24 09:30 Divalproex Sodium 500 Mg Tablet.Dr PO 08/28/24 07:21 500 mg ONCE ONE Administration Medical Decision Making Medical Decision Making [facility] Narrative: Patient with frequent seizure plan to see neurosurgeon Depakote level almost therapeutic was given extra dose of Depakote in the ER advised to follow up with neurosurgeon/neurologist Lab Data [facility] Lab Attestation statement: I reviewed the patient's lab results. Labs: Lab Results 08/28/24 Range/Units 07:51 Valproic Acid 51.8 (50.0-100.0) mcg/mL Radiology Impression Discussion of test interpretation with radiology: I have reviewed the radiologist's reading. Discharge Plan Discharge Clinical Impression: Seizure disorder Patient Disposition: Home, Self-Care Instructions: Epilepsy (ED) Additional Instructions: Continue your prescribed medications follow with your neurologist Prescriptions: No Action levetiracetam [Keppra] 1,000 mg tablet 1,500 mg PO BID 30 Days Qty: 90 6RF meloxicam 15 mg tablet 15 mg PO DAILY Qty: 30 0RF divalproex 250 mg tablet,delayed release (DR/EC) 750 mg PO BID 30 Days Qty: 180 2RF pantoprazole 40 mg tablet,delayed release (DR/EC) 40 mg PO DAILY 90 Days Qty: 90 0RF lorazepam [Ativan] 1 mg tablet 0.5 mg PO ONCE MDD 1 tab PRN (Reason: anxiety) 30 Days Qty: 30 0RF Ubrelvy 100 mg tablet 50 - 100 mg PO ONCE PRN (Reason: migraine headache) 30 Days Qty: 16 3RF Rx Instructions: take at onset of migraine, may repeat in 2hrs (may take w/ Ibuprofen) Stand Alone Forms: Work/School Release Interventions: ED Discharge Assessment Last Done: 08/28/24 09:38 Discharge Date/Time: 08/28/24 09:39 Print Language: Jamaican
[2024-08-28 08:17] LABS: Valproate 51.8 mcg/mL (50.0-100.0)
[2024-08-28] MEDS: Divalproex Sodium 500 MG TABLET.DR PO (09:30)
[2024-08-28 09:38] VITALS: BP 117/73; PULSE 82; RESP 16; TEMP 36.4; O2SAT 98
== END 2024-08-28 09:39 | disposition home or self-care (01) ==
PROVIDERS: Emergency Provider Internal Medicine; PCP Internal Medicine
DX: G40.909 Epilepsy, unspecified, not intractable, without status epilepticus (principal); Z87.891 Personal history of nicotine dependence; Z79.899 Other long term (current) drug therapy
CPT/HCPCS: 36415; 70450; 80164; 99284

== ENCOUNTER 2024-09-02 12:32 | Emergency (ER) | payer OTHER, SELFPAY ==
--- NOTE | 2024-09-02 | ECG_ITS ---
Test Reason : SEIZURE Blood Pressure : / mmHG Vent. Rate : 070 BPM Atrial Rate : 070 BPM P-R Int : 176 ms QRS Dur : 104 ms QT Int : 370 ms P-R-T Axes : 038 042 037 degrees QTc Int : 399 ms Normal sinus rhythm Normal ECG When compared with ECG of 24-AUG-2024 06:30, No significant change was found Referred By: Generic ED Physician Electronically Signed By:VELIA ALMANZAR MD
--- NOTE | ~2024-09-02 | XR_ITS ---
EXAMINATION: XR CHEST CLINICAL INFORMATION: Seizure. COMPARISON: Chest radiograph dated May 29, 2023. TECHNIQUE: Frontal view of the chest was obtained. FINDINGS: The heart is normal in size. The lungs are clear. No pleural effusion. No pneumothorax. No acute osseous abnormality. XR/XR chest 1V IMPRESSION: No acute cardiopulmonary disease. Electronically signed by: Edin Herring DO 09/02/2024 03:25 PM EDT
[2024-09-02 12:47] VITALS: BP 137/66; PULSE 77; O2SAT 100; BMI 28.5
--- NOTE | 2024-09-02 12:50 | PC.NURSE ---
aidan from home d/t witnessed focal seizure x 7 minutes. has hx. pt was sitting down - had aura (indigestion/dizziness). convulsions to left side of body. postictal upon EMS arrival. recent dose change of keppra. compliant w/ medication. upon ED arrival - a&ox4. vss and up to date. nsr on the blanket cutter hand. pt has no complaints aside from headache. denies change in vision/dizziness/lightheadedness. 20gIV in the [facility] via EMS - patent/intact. labs obtained/sent to lab. ekg performed by tech. seizure pads in place for safety precautions. on RA w/o difficulty. no sob/wob noted. respirations even/unlabored. plan of care ongoing. call andrews placed within reach.
[2024-09-02 12:56] VITALS: BP 119/71; PULSE 73; RESP 16; TEMP 37; O2SAT 98
--- NOTE | 2024-09-02 12:58 | ED_ITS ---
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 Reports seizure aura of nausea/dizziness, and had focal seizure to left side of body. Reports compliance with antiepileptics, and recent dose change of Depakote from 500 mg to 750 mg b.i.d. Admits to more frequent breakthrough seizures, has been seen in our ED on 08/24 and 08/28 for similar symptoms. Denies injury/fall today. Does report headache and nausea at present. Denies chest pain, shortness of breath, abdominal pain, vomiting, fever, illness, dysuria. Patient had brain MRI on 05/31/24 which showed recurrence of oligodendroglioma w/plan to see patients neurosurgeon for further management MD complaint: seizure Seizure History: Yes Related Data Previous Rx's ?Medication ?Instructions ?Recorded levetiracetam 1,000 mg tablet 1,500 mg (1.5 x 1,000 mg) PO BID 04/26/24 (Keppra) 30 days #90 tabs divalproex 250 mg tablet,delayed 750 mg (3 x 250 mg) PO BID 30 days 06/17/24 release #180 tabs meloxicam 15 mg tablet 15 mg PO DAILY #30 tabs 06/17/24 pantoprazole 40 mg tablet,delayed 40 mg PO DAILY 90 days #90 tabs 07/05/24 release ubrogepant 100 mg tablet (Ubrelvy) 50 - 100 mg (0.5 - 1 x 100 mg) PO 07/23/24 ONCE PRN migraine headache 30 days #16 tabs lorazepam 1 mg tablet (Ativan) 0.5 mg (1/2 x 1 mg) PO ONCE PRN 08/31/24 anxiety 30 days #30 tabs dexamethasone 4 mg tablet 4 mg PO BID 5 days #10 tabs 09/02/24 Allergies Allergy/AdvReac Type Severity Reaction Status Date / Time No Known Allergies Allergy Verified 09/02/24 12:49 [No Known Allergies*] Review of Systems 2 Review of Systems: Yes all other systems are reviewed and are negative Constitutional: Constitutional: Reports as per HPI Neurologic: Denies Abnormal speech present [facility] Past Medical History Attestation statement: The following information was validated with the patient. Source: old records reviewed Medical History Alcohol use disorder History of benign brain tumor Generalized seizure Bipolar 1 disorder Obesity (BMI 30-39.9) Tobacco abuse GERD (gastroesophageal reflux disease) Anxiety and depression Seizure disorder Surgical History H/O brain surgery Family History Family History Other No family history of coronary artery disease Substance use disorder Social History Social History Household Members: None Housing: Apartment Do you presently have visiting nurse or other home services: No Alcohol intake: former Patient Tobacco Use Status: Former Tobacco user Tobacco use type: Cigarette Cigarette Packs Per Day: 1 Cigarettes Per Day: 20.0 Years Smoked: 15 Smoked in Last 30 Days: No e-Cigarette/Vaping Use: Never Used Second Hand Smoke Exposure: Yes Use of substances other than those prescribed or required for medical reasons: No Substance Use Type: Crack/Cocaine Advance Directives: No Advance Directives Information Provided: Yes Do you have a plan to hurt others: No Plan service: No Current occupational status: unemployed Sexual orientation: Straight/Heterosexual Cognitive needs: No Hearing needs: No Vision needs: No Physical Exam 2 Vital Signs: Vital Signs: Last Vital Signs Temp 98.6 F 09/02/24 16:09 Pulse 71 09/02/24 16:09 Resp 16 09/02/24 16:09 BP 104/71 09/02/24 16:09 Pulse Ox 97 09/02/24 16:09 O2 Del Method Room Air 09/02/24 16:09 BMI result Body Mass Index 28.5 Const: General: cooperative, healthy appearing and no acute distress O rientation/consciousness: patient oriented x3 Limitations: no limitations HEENT: Other: A&Ox3 but with cognitive issues Head: Yes normal to inspection, Yes atraumatic and No Reed's sign E ars: hearing grossly normal bilaterally General nose exam: Normal external nose present Face and sinus: Yes normal facial exam Mouth: Normal oral and palatal mucosa present Throat: Yes posterior oropharynx normal and Yes uvula midline Eyes: General: appearance normal, both eyes and all related structures P upils: Equal, round and reactive pupils present EOM: EOMs intact bilaterally Neck: Neck: Yes normal visual inspection and Yes no meningeal signs Resp: Effort & Inspection: normal respiratory effort and no respiratory distress Auscultation: clear to auscultation bilaterally Cardio: Rate: regular rate Heart sounds: S1 normal heart sound present and S2 normal heart sound present GI: Inspection: Yes normal to inspection Palpation (GI): Soft to palpation, nontender, no guarding and not rigid : General: Yes no CVA tenderness Back/Spine/Pelvis: Back: no CVA tenderness Skin: Rashes: no rashes Wounds: no wounds Neuro: General: patient oriented x3, tone normal, moves all extremities, no meningeal signs, no focal motor deficits and CN's II-XI intact bilaterally C ranial nerves: Yes CN's II-XII intact bilaterally, Yes Equal, round and reactive pupils present and Yes Bilaterally intact EOM present Speech: No Abnormal speech present Gait exam (Neuro): Normal gait present Motor exam (neuro): 5/5 motor strength present throughout Extrem: General: Yes normal to inspection Course Course Course Narrative: -labs reassuring. UA negative. Valproic acid level therapeutic -viral studies negative -CXR unremarkable > spoke with patient's neurologist, SUMIT Parsons recommended starting the patient on dexamethasone and continuing Depakote at 750 mg b.i.d. She ordered follow-up MRI brain with and without to be done at [facility]. Will discharge patient home on low-dose Decadron 4 mg b.i.d. Results discussed with patient including worrisome signs and symptoms and strict return precautions, and when to return to the emergency department. They verbalized understanding and feel safe for discharge at this time. 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 On exam vital signs stable, NAD, A&O x3 however with cognitive difficulties which appears normal for patient postictal per prior notes. No focal neuro deficits. Concern for breakthrough seizures vs possible noncompliance/subtherapeutic levels vs increasing brain mass vs metabolic/infectious etiologies. Lower suspicion for ICH. Patient's Depakote level has been subtherapeutic recently. Also had CT head on 08/28 which showed similar findings to MRI in May Plan: EKG, labs, UA, CXR, viral testing, consult patient's neurologist Please refer to course for remaining clinical decision making, interpretation of labs/imaging results, and discussions with consultants and/or family members. Differential Diagnosis Differential Diagnoses: The differential diagnosis associated with the presentation includes As above Admission/Observation Consideration of admission/observation: Escalation of care including admission/observation considered Consult Healthcare Provider Management of the patient was discussed with: Certified Procedural Coder Lab Data [facility] Lab Attestation statement: I reviewed the patient's lab results. 09/02/24 13:00 09/02/24 13:00 Labs: Lab Results 09/02/24 09/02/24 09/02/24 Range/Units 13:00 13:30 14:38 WBC 5.5 (4.8-10.8) X10*3/uL RBC 4.85 (4.60-5.80) X10*6/uL Hgb 14.8 (14.0-18.0) g/dl Hct 43.2 (42.0-52.0) % MCV 89.1 (80.0-98.0) fL MCH 30.5 (27.0-33.0) pg MCHC 34.3 (31.0-36.0) g/dl RDW 12.2 (11.0-16.0) % Plt Count 268 (160-400) X10*3/uL MPV 9.5 (9.4-12.4) fL Immature Gran % (Auto) 0.2 (0.0-0.4) % Neut % (Auto) 51.7 (45-73) % Lymph % (Auto) 39.7 (20-40) % Wells % (Auto) 7.3 (2-11) % Eos % (Auto) 0.4 (0-4) % Baso % (Auto) 0.7 (0-2) % Lymph # (Auto) 2.2 (1.2-4.9) X10*3/uL [place] # (Auto) 0.4 (0.1-1.2) X10*3/uL Eos # (Auto) 0.0 (0.0-0.4) X10*3/uL Baso # (Auto) 0.0 (0.0-0.2) X10*3/uL Abs Immat Gran (auto) 0.01 (0.00-0.03) X10*3/uL Absolute Neuts (auto) 2.8 (2.0-8.3) x10*3/uL Absolute Nucleated RBC 0.000 (0.0-0.012) X10*3/uL Nucleated RBC % (auto) 0.0 (0.0-0.2) /100WBC Sodium 140 (135-145) mmol/L Potassium 4.0 (3.3-5.1) mmol/L Chloride 106 (96-108) mmol/L Carbon Dioxide 28 (22-29) mmol/L Anion Gap 10 L (12-20) BUN 12 (9-16) mg/dL Creatinine 1.01 (0.5-1.4) mg/dL Estim Creat Clear Calc 108.5 Estimated GFR > 60 Random Glucose 96 (60-115) mg/dL Calcium 9.3 (8.4-10.2) mg/dL Magnesium 1.9 (1.6-2.6) mg/dL Total Bilirubin 0.4 (0.0-1.0) mg/dL AST 11 (5-37) U/L ALT 14 (0-40) U/L Alkaline Phosphatase 36 L (39-117) U/L Total Protein 6.3 L (6.5-8.0) g/dL Albumin 3.6 (3.5-5.0) g/dL Urine Color Yellow Urine Appearance Clear Urine pH 6.0 (5.0-9.0) Ur Specific [place] 1.015 (1.005-1.025) Urine Protein Negative (Neg-Trace) mg/dL Urine Glucose (UA) Negative (Negative) mg/dL Urine Ketones Negative (Negative) mg/dL Urine Blood Negative (Negative) Urine Nitrite Negative (Negative) Ur Leukocyte Esterase Negative (Negative) Valproic Acid 65.7 (50.0-100.0) mcg/mL Influenza Type A (PCR) NEGATIVE (Negative) Influenza Type B (PCR) NEGATIVE (Negative) RSV RNA Qual (PCR) NEGATIVE (Negative) SARS-CoV-2 RNA (RT-PCR) NEGATIVE (Negative) Independent Interpretation I performed an independent interpretation of an: EKG (My interpretation EKG normal sinus rhythm rate of 70. FL interval 176. QTC 399. No significant change when compared to prior. No STEMI), Plain X-Ray and CT Scan Radiology Impression Discussion of test interpretation with radiology: I have reviewed the radiologist's reading. Independent Historian Clinical information obtained from an independent historian. History obtained from or confirmed by: EMS External Record Review External record reviewed: Inpatient record, Office record, Outpatient record, Prior outpatient labs, Prior outpatient radiology, Primary care record and Outside ED record Tests considered The following testing was considered but not selected: As above Chronic Conditions Patient?s care impacted by: Other (Brain mass, seizure disorder) Discharge Plan Discharge Clinical Impression: Breakthrough seizure Patient Disposition: Home, Self-Care Instructions: Recurrent Seizures in Adults (ED) Additional Instructions: Your blood work was reassuring today in the emergency department We gave you a dose of IV steroids and are discharging you home on oral steroids. Please take as prescribed Please call your neurologist for very close follow-up. If your symptoms persist or worsen, you have recurrent seizures please return to the emergency department Prescriptions: New dexamethasone 4 mg tablet 4 mg PO BID 5 Days Qty: 10 0RF No Action levetiracetam [Keppra] 1,000 mg tablet 1,500 mg PO BID 30 Days Qty: 90 6RF meloxicam 15 mg tablet 15 mg PO DAILY Qty: 30 0RF divalproex 250 mg tablet,delayed release (DR/EC) 750 mg PO BID 30 Days Qty: 180 2RF pantoprazole 40 mg tablet,delayed release (DR/EC) 40 mg PO DAILY 90 Days Qty: 90 0RF lorazepam [Ativan] 1 mg tablet 0.5 mg PO ONCE MDD 1 tab PRN (Reason: anxiety) 30 Days Qty: 30 3RF Ubrelvy 100 mg tablet 50 - 100 mg PO ONCE PRN (Reason: migraine headache) 30 Days Qty: 16 3RF Rx Instructions: take at onset of migraine, may repeat in 2hrs (may take w/ Ibuprofen) Referrals: Jeannette Parsons FNP [Nurse Practitioner] - 1 day Interventions: ED Discharge Assessment Last Done: 09/02/24 16:09 Discharge Date/Time: 09/02/24 16:09 Print Language: Japanese
[2024-09-02 13:04] LABS: MANUAL DIFF FLAG NO
[2024-09-02 13:06] LABS: Basophils Percent Auto 0.7 % (0-2); Eosinophils Percent Auto 0.4 % (0-4); Hematocrit 43.2 % (42.0-52.0); Hemoglobin 14.8 g/dl (14.0-18.0); Imm Gran Abs Auto 0.01 X10*3/uL (0.00-0.03); Imm Gran Pct Auto 0.2 % (0.0-0.4); Lymphocytes Absolute Auto 2.2 X10*3/uL (1.2-4.9); Lymphocytes Percent Auto 39.7 % (20-40); Mean Corpuscular HGB Conc 34.3 g/dl (31.0-36.0); Mean Corpuscular Hemoglobin 30.5 pg (27.0-33.0); Mean Corpuscular Volume 89.1 fL (80.0-98.0); Mean Platelet Volume 9.5 fL (9.4-12.4); Monocytes Absolute Auto 0.4 X10*3/uL (0.1-1.2); Monocytes Percent Auto 7.3 % (2-11); Neutrophils Absolute Auto 2.8 x10*3/uL (2.0-8.3); Neutrophils Percent Auto 51.7 % (45-73); Platelet Count 268 X10*3/uL (160-400); Red Blood Count 4.85 X10*6/uL (4.60-5.80); Red Cell Distribution Width 12.2 % (11.0-16.0); White Blood Count 5.5 X10*3/uL (4.8-10.8)
--- NOTE | 2024-09-02 13:06 | PC.NURSE ---
Seizure pads in place, Primary RN notified
[2024-09-02] MEDS: LORazepam 2 MG/ML VIAL 1 MG IVPUSH (13:21)
[2024-09-02 13:23] LABS: Valproate 65.7 mcg/mL (50.0-100.0)
[2024-09-02 13:25] LABS: Alanine Aminotransferase 14 U/L (0-40); Albumin Level 3.6 g/dL (3.5-5.0); Alkaline Phosphatase 36 U/L (39-117); Anion Gap 10 (12-20); Aspartate Amino Transferase 11 U/L (5-37); Bilirubin Total 0.4 mg/dL (0.0-1.0); Blood Urea Nitrogen 12 mg/dL (9-16); Calcium 9.3 mg/dL (8.4-10.2); Carbon Dioxide 28 mmol/L (22-29); Chloride 106 mmol/L (96-108); Creatinine Clr Calc Pharmacy 108.5; Estimated Glomerular Filt Rate > 60; Glucose Random 96 mg/dL (60-115); Magnesium 1.9 mg/dL (1.6-2.6); Sodium 140 mmol/L (135-145); Total Protein 6.3 g/dL (6.5-8.0)
[2024-09-02 13:37] LABS: Appearance Urine Clear; Color Urine Yellow; Glucose Urine UA Negative (Negative); Leukocyte Esterase Urine Negative (Negative); Nitrite Urine Negative (Negative); Specific Gravity - Urine 1.015 (1.005-1.025); Urine Blood Negative (Negative); Urine Ketones Negative (Negative); Urine Protein Negative (Neg-Trace)
[2024-09-02 14:36] VITALS: BP 100/70; PULSE 67; RESP 16; TEMP 37.1; O2SAT 97
--- NOTE | 2024-09-02 14:37 | PC.NURSE ---
vss and up to date. nsr on the cardiac surgeon. pt denies any pain - only reporting drowsiness. neuros remain intact. swab obtained/sent to lab. no sob/wob noted. respirations remain even/unlabored. plan of care ongoing. call andrews placed within reach.
[2024-09-02 15:24] LABS: Influenza A PCR NEGATIVE (Negative); Influenza B PCR NEGATIVE (Negative); Resp Syncy Virus RNA Qual PCR NEGATIVE (Negative); SARS COV2 PCR INHOUSE NEGATIVE (Negative)
[2024-09-02] MEDS: dexAMETHasone sod phosphate 10 MG/ML VIAL IVPUSH (16:05)
[2024-09-02 16:07] VITALS: BP 104/71; PULSE 71; RESP 16; TEMP 37; O2SAT 97
[2024-09-02 16:09] VITALS: BP 104/71; PULSE 71; RESP 16; TEMP 37; O2SAT 97
[2024-09-05 22:24] LABS: Levetiracetam Keppra 25.1 mcg/mL (6.0-46.0)
== END 2024-09-02 16:09 | disposition home or self-care (01) ==
PROVIDERS: Physician Assistant; Emergency Provider Emergency Medicine; PCP Internal Medicine
DX: R56.9 Unspecified convulsions (principal); R11.2 Nausea with vomiting, unspecified; Z03.818 Encounter for observation for suspected exposure to other biological agents ruled out; Z79.899 Other long term (current) drug therapy
CPT/HCPCS: 0241U; 36415; 71045; 80053; 80164; 80177; 81003; 83735; 85025; 93005; 96374; 96375; 99284; J1100; J2060

== ENCOUNTER → 2024-09-02 13:03 | Outpatient (BNV) | payer OTHER, SELFPAY | PROVIDERS: Emergency Provider Emergency Medicine; PCP Internal Medicine; Visit Provider Internal Medicine Cardiovascular Disease | DX: G40.89 Other seizures (principal) | CPT/HCPCS: 93010 ==

== ENCOUNTER 2024-09-16 14:38 | Emergency (ER) | payer OTHER, SELFPAY ==
--- NOTE | 2024-09-16 | ECG_ITS ---
Test Reason : SEIZURE Blood Pressure : / mmHG Vent. Rate : 077 BPM Atrial Rate : 077 BPM P-R Int : 156 ms QRS Dur : 104 ms QT Int : 362 ms P-R-T Axes : 036 037 053 degrees QTc Int : 409 ms Normal sinus rhythm Nonspecific T wave abnormality Abnormal ECG When compared with ECG of 02-SEP-2024 13:03, No significant change was found Referred By: Generic ED Physician Electronically Signed By:Andi Kincaid
--- NOTE | ~2024-09-16 | CT_ITS ---
EXAMINATION: CT HEAD WITH CONTRAST CLINICAL INFORMATION: Increased seizures. Brain mass. COMPARISON: CT head dated August 28, 2024. Brain MRI dated May 31, 2024. TECHNIQUE: Contiguous axial imaging was performed from the skull base to vertex following the administration of 100 mL of Omnipaque [address] examination was performed using dose optimization techniques as appropriate, variously including the following: *Automated exposure control *Adjustment of mA and/or kV according to patient size (this includes techniques or standardized protocols for targeted exams where dose is matched to indication/reason for exam; i.e. extremities or head) *Use of iterative reconstruction technique DLP: 1526 mGy-cm FINDINGS: There is a small right frontal craniotomy defect. There is a small surgical cavity subjacent to the craniotomy defect. There is a slightly expansile mass at the superior aspect of the surgical cavity which contains intralesional calcifications. The appearance is similar to that seen on the August 28, [address] There is no midline shift. No hydrocephalus. No acute intracranial hemorrhage. No evidence of acute/subacute cerebral or cerebellar infarction. The paranasal sinuses and mastoid air cells are well-aerated. CT/CT head/brain w IV con IMPRESSION: Grossly stable appearance of a small surgical cavity located within the right frontal lobe. There is a stable slightly expansile mass at the superior margin of the surgical cavity containing intralesional calcifications. Electronically signed by: Edin Herring DO 09/16/2024 05:56 PM EDT
[2024-09-16 14:53] VITALS: BP 118/76; BP 125/69; PULSE 69; PULSE 80; RESP 15; TEMP 36.9; O2SAT 96; O2SAT 98; BMI 31.7
--- NOTE | 2024-09-16 15:00 | ED_ITS ---
HPI - Seizure General Chief Complaint: Seizure Stated Complaint: SZ PER EMS Time Seen by Provider: 09/16/24 15:00 Source: patient and EMS Mode of arrival: EMS Limitations: no limitations History of Present Illness ED Provider: BRYN CARBAJAL PA-C HPI Narrative: 39 year old male with pmhx significant for epilepsy, GERD, anxiety, depression, bipolar 1 disorder, and etoh abuse presents to the ED via EMS from home for evaluation of witnessed seizure occurring [employer] in ED. Patient states that while sitting at home vaping and scrolling on his phone he began to feel a seizure come on. Reports shaking to the left side of his body which lasted approximately 3 minutes per his friend who was home with him. Patient recalls the entire incident. No LOC. Denies tongue bite or bowel/ bladder incontinence. His friend then called EMS for further eval. Patient states he was recently diagnosed with a brain tumor and has surgery scheduled for this at [facility]. Reports attending a follow up appointment with his neurologist this morning prior to seizure. States he takes depakote, keppra, and dexamethasone daily with ativan as needed. Admits to feeling anxious regarding the new brain tumor diagnosis and feels overwhelmed with the amount of medications he has to take. Admits he has not been taking his ativan. He reports compliance with all other medications. Admits to history of etoh abuse. States he has not consumed etoh in months. Denies //TH. Seizure History: Yes Related Data Previous Rx's ?Medication ?Instructions ?Recorded levetiracetam 1,000 mg tablet 1,500 mg (1.5 x 1,000 mg) PO BID 04/26/24 (Keppra) 30 days #90 tabs divalproex 250 mg tablet,delayed 750 mg (3 x 250 mg) PO BID 30 days 06/17/24 release #180 tabs meloxicam 15 mg tablet 15 mg PO DAILY #30 tabs 06/17/24 pantoprazole 40 mg tablet,delayed 40 mg PO DAILY 90 days #90 tabs 07/05/24 release ubrogepant 100 mg tablet (Ubrelvy) 50 - 100 mg (0.5 - 1 x 100 mg) PO 07/23/24 ONCE PRN migraine headache 30 days #16 tabs lorazepam 1 mg tablet (Ativan) 0.5 mg (1/2 x 1 mg) PO ONCE PRN 10/08/24 anxiety 30 days #30 tabs dexamethasone 4 mg tablet 4 mg PO BID 30 days #60 tabs 09/06/24 Allergies Allergy/AdvReac Type Severity Reaction Status Date / Time No Known Allergies Allergy Verified 09/16/24 14:57 [No Known Allergies*] Review of Systems 2 Review of Systems: Constitutional: No fever, chills, fatigue, night sweats, weight changes ENT/Mouth: No ear pain, hearing loss, nasal congestion, sinus pain, rhinorrhea, sore throat Eyes: No eye pain, swelling, redness, vision changes, discharge Cardio: No chest pain, palpitations, PATINO, orthopnea, peripheral edema Pulm: No SOB, cough, sputum, wheezing, dyspnea, hemoptysis GI: No nausea, vomiting, hematemesis, abdominal pain, diarrhea, constipation, hematochezia, melena : No irregular bleeding, dysuria, frequency, urgency, hesitancy, hematuria, flank pain, urinary flow changes, urinary incontinence or retention MSK: No back pain, neck pain, joint pain, myalgias Skin: No lesions, rashes Neuro: No weakness, numbness, paresthesias, LOC, dizziness, headache Psych: No depression, SI/HI, AH/VH, +anxiety All other systems reviewed and are negative. [facility] Past Medical History Attestation statement: The following information was validated with the patient. Source: old records reviewed and nursing notes reviewed Medical History Alcohol use disorder History of benign brain tumor Generalized seizure Bipolar 1 disorder Obesity (BMI 30-39.9) Tobacco abuse GERD (gastroesophageal reflux disease) Anxiety and depression Seizure disorder Surgical History H/O brain surgery Family History Family History Other No family history of coronary artery disease Substance use disorder Social History Social History Household Members: None Housing: Apartment Do you presently have visiting nurse or other home services: No Alcohol intake: former Patient Tobacco Use Status: Former Tobacco user Tobacco use type: Cigarette Cigarette Packs Per Day: 1 Cigarettes Per Day: 20.0 Years Smoked: 15 Smoked in Last 30 Days: Yes e-Cigarette/Vaping Use: Never Used Second Hand Smoke Exposure: Yes Use of substances other than those prescribed or required for medical reasons: No Substance Use Type: Crack/Cocaine Advance Directives: No Advance Directives Information Provided: Yes service: No Current occupational status: unemployed Sexual orientation: Straight/Heterosexual Cognitive needs: No Hearing needs: No Vision needs: No Physical Exam 2 Vital Signs: Vital Signs: Last Vital Signs Temp 97.8 F 09/16/24 18:37 Pulse 76 09/16/24 18:37 Resp 16 09/16/24 18:37 BP 103/70 09/16/24 18:37 Pulse Ox 96 09/16/24 18:37 O2 Del Method Room Air 09/16/24 18:37 BMI result Body Mass Index 31.7 vital signs stable General: Well appearing, in no acute distress. Skin: Warm, dry, intact. No rashes or lesions. Head: Normocephalic, atraumatic. EENT: Hearing is intact b/l. Conjunctiva clear. PERRLA. EOM intact. Moist mucous membranes.?no tongue laceration. Neck: Supple without LAD Cardiac: Chest wall symmetric. RRR Lungs: Normal respiratory effort without accessory muscle use. CTA bilaterally. No rales, rhonchi, or wheezes.? Abdomen: Soft, non-tender, non-distended. No rebound tenderness or guarding Back: No midline spinous or paraspinal tenderness. No step off deformity. Ext: Upper and lower extremities atraumatic, without tenderness, deformity, swelling or erythema. Full ROM throughout. Pulses 2+ equal and bilateral. Neuro: AOx3. Normal speech. Strength 5/5 intact throughout. Sensation intact to light touch. NV intact distally. Reflexes 2+ bilaterally. Ambulating with steady gait. Psych: Appropriate mood and affect. Responds appropriately to questions. Course Course Course Narrative: CBC with slight leukocytosis to 11.5 without left shift. No anemia. H&H stable. Chemistry without acute electrolyte abnormality requiring intervention. No ETHEL. ESR and CRP WNL. Urine without infection. Urine toxicology negative. Negative for flu, COVID, RSV. EKG showing normal sinus rhythm with a rate of 77 beats per minute, QT 362, QTC 409, no acute ischemic changes or ST elevations. Valproic acid within therapeutic level. keppra level pending. CT head showing grossly stable appearance of a small surgical cavity located within the right frontal lobe with stable slightly expansile mass at the superior margin of the surgical cavity containing intralesional calcifications. This is stable when compared to recent brain MRI. On my interpretation, I do not appreciate any midline shift or edema. I have suspicion that patient had breakthrough seizure this morning as he stopped taking his Ativan yesterday. Patient takes his dexamethasone twice daily as prescribed. I had a conversation with patient regarding medication compliance. Advised him to continue Keppra, Depakote and Ativan as prescribed. I informed him that if he does not take these as prescribed that he can continue having breakthrough seizures. Advised him to follow up with his neurologist as scheduled. Patient has remained stable throughout ED visit today. Discussed worrisome signs and symptoms and when to return to the ED. All questions answered at this time. Patient is agreeable with disposition and stable for discharge. Medications Administered Discontinued Medications Generic Name Dose Route Start Last Admin Trade Name Freq PRN Reason Stop Dose Admin Iohexol 100 ml 09/16/24 15:55 09/16/24 15:55 Iohexol 350 Mg/Ml 100 Ml Infus..Btl IV 09/16/24 15:56 85 ml ONCE ONE Administration Lorazepam 1 mg 09/16/24 15:09 09/16/24 15:21 Lorazepam 2 Mg/Ml Vial IVPUSH 09/16/24 15:10 1 mg ONCE ONE Administration Medical Decision Making Medical Decision Making [facility] Narrative: 39 year old male with pmhx significant for epilepsy, GERD, anxiety, depression, bipolar 1 disorder, and etoh abuse presents to the ED via EMS from home for evaluation of witnessed seizure occurring [employer] in ED. Vitals stable. He is nontoxic appearing and in NAD however appears anxious. AOX3. head is normocephalic atraumatic. No tongue laceration. Normal tone. moves all extremities. exam is nonfocal. Differential diagnosis includes breakthrough seizure, anemia, electrolyte abnormality, dehydration, brain mass, ICH/other brain bleed, medication noncompliance. Plan for labs, UA, viral serology, CT head Differential Diagnosis Differential Diagnoses: The differential diagnosis associated with the presentation includes as above. Admission/Observation Consideration of admission/observation: Escalation of care including admission/observation considered admission considered Lab Data [facility] Lab Attestation statement: I reviewed the patient's lab results. as above. 09/16/24 15:28 09/16/24 15:28 Labs: Lab Results 09/16/24 Range/Units 15:28 WBC 11.5 H (4.8-10.8) X10*3/uL RBC 4.98 (4.60-5.80) X10*6/uL Hgb 15.2 (14.0-18.0) g/dl Hct 43.0 (42.0-52.0) % MCV 86.3 (80.0-98.0) fL MCH 30.5 (27.0-33.0) pg MCHC 35.3 (31.0-36.0) g/dl RDW 12.8 (11.0-16.0) % Plt Count 303 (160-400) X10*3/uL MPV 9.4 (9.4-12.4) fL Immature Gran % (Auto) 0.5 H (0.0-0.4) % Neut % (Auto) 79.8 H (45-73) % Lymph % (Auto) 14.0 L (20-40) % [place] % (Auto) 5.4 (2-11) % Eos % (Auto) 0.1 (0-4) % Baso % (Auto) 0.2 (0-2) % Lymph # (Auto) 1.6 (1.2-4.9) X10*3/uL [place] # (Auto) 0.6 (0.1-1.2) X10*3/uL Eos # (Auto) 0.0 (0.0-0.4) X10*3/uL Baso # (Auto) 0.0 (0.0-0.2) X10*3/uL Abs Immat Gran (auto) 0.06 H (0.00-0.03) X10*3/uL Absolute Neuts (auto) 9.2 H (2.0-8.3) x10*3/uL Absolute Nucleated RBC 0.000 (0.0-0.012) X10*3/uL Nucleated RBC % (auto) 0.0 (0.0-0.2) /100WBC ESR 2 (0-15) MM/HR PT 11.2 (10.9-12.4) SEC INR 1.0 (0.9-1.1) Sodium 137 (135-145) mmol/L Potassium 4.0 (3.3-5.1) mmol/L Chloride 105 (96-108) mmol/L Carbon Dioxide 28 (22-29) mmol/L Anion Gap 8 L (12-20) BUN 16 (9-16) mg/dL Creatinine 0.95 (0.5-1.4) mg/dL Estim Creat Clear Calc 121.2 Estimated GFR > 60 Random Glucose 115 (60-115) mg/dL Calcium 9.4 (8.4-10.2) mg/dL Magnesium 2.0 (1.6-2.6) mg/dL Total Bilirubin 0.4 (0.0-1.0) mg/dL AST 15 (5-37) U/L ALT 15 (0-40) U/L Alkaline Phosphatase 37 L (39-117) U/L Total Creatine Kinase 33 L (38-174) U/L C-Reactive Protein < 0.04 (< or = 0.50) mg/dL Total Protein 6.4 L (6.5-8.0) g/dL Albumin 3.6 (3.5-5.0) g/dL Lipase 8 (8-78) U/L Urine Color Yellow Urine Appearance Clear Urine pH 7.0 (5.0-9.0) Ur Specific [place] 1.020 (1.005-1.025) Urine Protein Negative (Neg-Trace) mg/dL Urine Glucose (UA) Negative (Negative) mg/dL Urine Ketones Trace (Negative) mg/dL Urine Blood Negative (Negative) Urine Nitrite Negative (Negative) Ur Leukocyte Esterase Negative (Negative) Urine Opiates Screen Not Detected (Not Detect) Ur Buprenorphine Scrn Not Detected (Not Detect) ng/mL Ur Oxycodone Screen Not Detected (Not Detect) ng/mL Urine Methadone Screen Not Detected (Not Detect) ng/mL Urine Fentanyl Screen Not Detected (Not Detect) Ur Barbiturates Screen Not Detected (Not Detect) Valproic Acid 59.9 (50.0-100.0) mcg/mL Ur Phencyclidine Scrn Not Detected (Not Detect) Ur Amphetamines Screen Not Detected (Not Detect) U Benzodiazepines Scrn Not Detected (Not Detect) Urine Cocaine Screen Not Detected (Not Detect) U Marijuana (THC) Screen Not Detected (Not Detect) Ethyl Alcohol < 10 mg/dL Influenza Type A (PCR) NEGATIVE (Negative) Influenza Type B (PCR) NEGATIVE (Negative) RSV RNA Qual (PCR) NEGATIVE (Negative) SARS-CoV-2 RNA (RT-PCR) NEGATIVE (Negative) Independent Interpretation I performed an independent interpretation of an: EKG and CT Scan Interpretation: EKG with normal sinus rhythm, rate 77 beats per minute, QT 362, QTC 409, no acute ischemic changes or ST elevations. CT scan head/brain without midline shift, agree with radiologist's interpretation. Radiology Impression Discussion of test interpretation with radiology: I have reviewed the radiologist's reading. Radiologist Impression: EXAMINATION: CT HEAD WITH CONTRAST CLINICAL INFORMATION: Increased seizures. Brain mass. COMPARISON: CT head dated August 28, 2024. Brain MRI dated May 31, 2024. TECHNIQUE: Contiguous axial imaging was performed from the skull base to vertex following the administration of 100 mL of Omnipaque [address] examination was performed using dose optimization techniques as appropriate, variously including the following: *Automated exposure control *Adjustment of mA and/or kV according to patient size (this includes techniques or standardized protocols for targeted exams where dose is matched to indication/reason for exam; i.e. extremities or head) *Use of iterative reconstruction technique DLP: 1526 mGy-cm FINDINGS: There is a small right frontal craniotomy defect. There is a small surgical cavity subjacent to the craniotomy defect. There is a slightly expansile mass at the superior aspect of the surgical cavity which contains intralesional calcifications. The appearance is similar to that seen on the August 28, [address] There is no midline shift. No hydrocephalus. No acute intracranial hemorrhage. No evidence of acute/subacute cerebral or cerebellar infarction. The paranasal sinuses and mastoid air cells are well-aerated. CT/CT head/brain w IV con IMPRESSION: Grossly stable appearance of a small surgical cavity located within the right frontal lobe. There is a stable slightly expansile mass at the superior margin of the surgical cavity containing intralesional calcifications. Electronically signed by: Edin Herring DO 09/16/2024 05:56 PM EDT Independent Historian Clinical information obtained from an independent historian. History obtained from or confirmed by: EMS External Record Review External record reviewed: Inpatient record, Office record, Outpatient record, Prior outpatient labs, Prior outpatient radiology, Primary care record and Outside ED record Chronic Conditions Patient?s care impacted by: Other (epilepsy, brain tumor) Social Determinants Patient?s care significantly limited by Social Determinants of Health including: Other Social Determinant of Health Critical Care Time Critical Care Time Critical Care Time: Yes Total Critical Care Time: 34 Attestation: Critical care time in the amount of 34 minutes has been provided to the patient in terms of direct patient care, frequent reevaluation, review and interpretation of medical data and results, and management of potentially life- threatening conditions. This is all outside of any medical procedures. Discharge Plan Discharge Clinical Impression: Seizure Patient Disposition: Home, Self-Care Instructions: Lorazepam (By mouth), Levetiracetam (By mouth), Valproic Acid (By mouth), Epilepsy (ED) Additional Instructions: You were evaluated in the ED today after having a seizure. Your blood work today is reassuring. Your urine is negative for infection. You tested negative for COVID, flu, RSV. The CT of your head shows stable appearance of brain mass. The levels of depakote/ keppra in your blood have been sent to the lab to determine if these are within therapeutic levels. You will be contacted with any abnormal results. It is important that you take all home medications as prescribed. Continue dexamethasone twice daily. Continue Keppra, Depakote and Ativan as prescribed. Follow up with neurologist as scheduled. Follow up with PCP as needed. Return with new or worsening symptoms. In the case of an emergency call 911. Prescriptions: No Action levetiracetam [Keppra] 1,000 mg tablet 1,500 mg PO BID 30 Days Qty: 90 6RF meloxicam 15 mg tablet 15 mg PO DAILY Qty: 30 0RF divalproex 250 mg tablet,delayed release (DR/EC) 750 mg PO BID 30 Days Qty: 180 2RF pantoprazole 40 mg tablet,delayed release (DR/EC) 40 mg PO DAILY 90 Days Qty: 90 0RF lorazepam [Ativan] 1 mg tablet 0.5 mg PO ONCE MDD 1 tab PRN (Reason: anxiety) 30 Days Qty: 30 3RF dexamethasone 4 mg tablet 4 mg PO BID 30 Days Qty: 60 0RF Ubrelvy 100 mg tablet 50 - 100 mg PO ONCE PRN (Reason: migraine headache) 30 Days Qty: 16 3RF Rx Instructions: take at onset of migraine, may repeat in 2hrs (may take w/ Ibuprofen) Referrals: Marilyn Myrick MD [Primary Care Provider] - Interventions: ED Discharge Assessment Last Done: 09/16/24 18:37 Discharge Date/Time: 09/16/24 18:37 Print Language: Romansh
[2024-09-16] MEDS: LORazepam 2 MG/ML VIAL 1 MG IVPUSH (15:21)
[2024-09-16 15:36] LABS: MANUAL DIFF FLAG NO
[2024-09-16 15:38] LABS: Basophils Percent Auto 0.2 % (0-2); Eosinophils Percent Auto 0.1 % (0-4); Hemoglobin 15.2 g/dl (14.0-18.0); Imm Gran Abs Auto 0.06 X10*3/uL (0.00-0.03); Imm Gran Pct Auto 0.5 % (0.0-0.4); Lymphocytes Absolute Auto 1.6 X10*3/uL (1.2-4.9); Mean Corpuscular HGB Conc 35.3 g/dl (31.0-36.0); Mean Corpuscular Hemoglobin 30.5 pg (27.0-33.0); Mean Corpuscular Volume 86.3 fL (80.0-98.0); Mean Platelet Volume 9.4 fL (9.4-12.4); Monocytes Absolute Auto 0.6 X10*3/uL (0.1-1.2); Monocytes Percent Auto 5.4 % (2-11); Neutrophils Absolute Auto 9.2 x10*3/uL (2.0-8.3); Neutrophils Percent Auto 79.8 % (45-73); Platelet Count 303 X10*3/uL (160-400); Red Blood Count 4.98 X10*6/uL (4.60-5.80); Red Cell Distribution Width 12.8 % (11.0-16.0); White Blood Count 11.5 X10*3/uL (4.8-10.8)
[2024-09-16 15:40] LABS: Appearance Urine Clear; Color Urine Yellow; Glucose Urine UA Negative (Negative); Leukocyte Esterase Urine Negative (Negative); Nitrite Urine Negative (Negative); Urine Blood Negative (Negative); Urine Ketones Trace mg/dL (Negative); Urine Protein Negative (Neg-Trace)
[2024-09-16 15:43] LABS: Prothrombin Time 11.2 SEC (10.9-12.4)
[2024-09-16 15:51] LABS: Amphetamine Screen Urine Not Detected (Not Detect); Barbiturates, Urine Not Detected (Not Detect); Benzodiazepines Screen Urine Not Detected (Not Detect); Buprenorphine Scr Not Detected (Not Detect); Cannabinoid Screen Urine Not Detected (Not Detect); Cocaine Screen Urine Not Detected (Not Detect); Fentanyl, urine Not Detected (Not Detect); Methadone Screen, Urine Not Detected (Not Detect); Opiate Screen Urine Not Detected (Not Detect); Oxycodone Screen Urine Not Detected (Not Detect); Phencyclidine Screen Urine Not Detected (Not Detect)
[2024-09-16 15:55] LABS: Valproate 59.9 mcg/mL (50.0-100.0)
[2024-09-16] MEDS: iohexoL 350 MG/ML 100 ML INFUS..BTL IV (15:55)
[2024-09-16 15:56] LABS: Ethanol < 10 mg/dL
[2024-09-16 16:00] LABS: Alanine Aminotransferase 15 U/L (0-40); Albumin Level 3.6 g/dL (3.5-5.0); Alkaline Phosphatase 37 U/L (39-117); Anion Gap 8 (12-20); Aspartate Amino Transferase 15 U/L (5-37); Bilirubin Total 0.4 mg/dL (0.0-1.0); Blood Urea Nitrogen 16 mg/dL (9-16); C Reactive Protein < 0.04 mg/dL (< or = 0.50); Calcium 9.4 mg/dL (8.4-10.2); Carbon Dioxide 28 mmol/L (22-29); Chloride 105 mmol/L (96-108); Creatinine Clr Calc Pharmacy 121.2; Estimated Glomerular Filt Rate > 60; Glucose Random 115 mg/dL (60-115); Lipase 8 U/L (8-78); Sodium 137 mmol/L (135-145); Total Protein 6.4 g/dL (6.5-8.0)
[2024-09-16 16:06] VITALS: BP 116/67; PULSE 74; RESP 16; TEMP 36.6; O2SAT 95
[2024-09-16 16:24] LABS: Erythrocyte Sedimentation Rate 2 MM/HR (0-15)
[2024-09-16 16:28] LABS: Influenza A PCR NEGATIVE (Negative); Influenza B PCR NEGATIVE (Negative); Resp Syncy Virus RNA Qual PCR NEGATIVE (Negative); SARS COV2 PCR INHOUSE NEGATIVE (Negative)
[2024-09-16 18:35] VITALS: BP 103/70; PULSE 76; RESP 16; TEMP 36.6; O2SAT 96
[2024-09-16 18:37] VITALS: BP 103/70; PULSE 76; RESP 16; TEMP 36.6; O2SAT 96
[2024-09-21 19:53] LABS: Levetiracetam Keppra 21.8 mcg/mL (6.0-46.0)
== END 2024-09-16 18:37 | disposition home or self-care (01) ==
PROVIDERS: Physician Assistant Medical; Emergency Provider Emergency Medicine; PCP Internal Medicine
DX: R56.9 Unspecified convulsions (principal); R94.31 Abnormal electrocardiogram [ECG] [EKG]; Z03.818 Encounter for observation for suspected exposure to other biological agents ruled out; Z79.899 Other long term (current) drug therapy; Z91.148 Patient's other noncompliance with medication regimen for other reason; Z51.81 Encounter for therapeutic drug level monitoring
CPT/HCPCS: 0241U; 36415; 70460; 80053; 80164; 80177; 80307; 81003; 82550; 83690; 83735; 85025; 85610; 85652; 86140; 93005; 96374; 99284; 99285; J2060; Q9967

== ENCOUNTER → 2024-09-16 14:40 | Outpatient (BNV) | payer OTHER, SELFPAY | PROVIDERS: Emergency Provider Emergency Medicine; PCP Internal Medicine; Visit Provider Internal Medicine Cardiovascular Disease | DX: R94.31 Abnormal electrocardiogram [ECG] [EKG] (principal) | CPT/HCPCS: 93010 ==

== ENCOUNTER 2024-09-21 02:50 | Emergency (ER) | payer OTHER, SELFPAY ==
--- NOTE | 2024-09-21 | ECG_ITS ---
Test Reason : SEIZURE Blood Pressure : / mmHG Vent. Rate : 073 BPM Atrial Rate : 073 BPM P-R Int : 162 ms QRS Dur : 104 ms QT Int : 372 ms P-R-T Axes : 032 045 046 degrees QTc Int : 409 ms Normal sinus rhythm Incomplete right bundle branch block Borderline ECG When compared with ECG of 16-SEP-2024 14:40, Incomplete right bundle branch block is now Present Referred By: Generic ED Physician Electronically Signed By:MARILIA JOLLEY
[2024-09-21 02:54] VITALS: BP 106/86; BP 121/77; PULSE 77; PULSE 78; RESP 16; TEMP 37.1; O2SAT 95; O2SAT 98; BMI 30.9
[2024-09-21 03:05] LABS: MANUAL DIFF FLAG NO
[2024-09-21 03:07] LABS: Basophils Percent Auto 0.2 % (0-2); Eosinophils Percent Auto 0.2 % (0-4); Hematocrit 43.1 % (42.0-52.0); Hemoglobin 15.2 g/dl (14.0-18.0); Imm Gran Abs Auto 0.04 X10*3/uL (0.00-0.03); Imm Gran Pct Auto 0.3 % (0.0-0.4); Lymphocytes Absolute Auto 3.5 X10*3/uL (1.2-4.9); Lymphocytes Percent Auto 27.9 % (20-40); Mean Corpuscular HGB Conc 35.3 g/dl (31.0-36.0); Mean Corpuscular Volume 87.8 fL (80.0-98.0); Mean Platelet Volume 9.1 fL (9.4-12.4); Monocytes Absolute Auto 0.8 X10*3/uL (0.1-1.2); Monocytes Percent Auto 6.5 % (2-11); Neutrophils Percent Auto 64.9 % (45-73); Platelet Count 326 X10*3/uL (160-400); Red Blood Count 4.91 X10*6/uL (4.60-5.80); Red Cell Distribution Width 13.1 % (11.0-16.0); White Blood Count 12.4 X10*3/uL (4.8-10.8)
--- NOTE | 2024-09-21 03:08 | PC.NURSE ---
pt biba from home. pt a&ox4, respirations even and unlabored, vss. pt post ictal from 3 min seizure. pt has hx of epilepsy and frontal lobe tumor. pt normal sinus on tele 68-72 bpm. 18g placed in r forearm. pt reports headache with pain /10. seizure precautions in place
[2024-09-21 03:24] LABS: Alanine Aminotransferase 16 U/L (0-40); Albumin Level 3.4 g/dL (3.5-5.0); Alkaline Phosphatase 35 U/L (39-117); Anion Gap 14 (12-20); Aspartate Amino Transferase 24 U/L (5-37); Bilirubin Total 0.2 mg/dL (0.0-1.0); Blood Urea Nitrogen 16 mg/dL (9-16); Calcium 8.9 mg/dL (8.4-10.2); Carbon Dioxide 22 mmol/L (22-29); Chloride 106 mmol/L (96-108); Creatinine Clr Calc Pharmacy 114.9; Estimated Glomerular Filt Rate > 60; Glucose Random 117 mg/dL (60-115); Potassium 4.6 mmol/L (3.3-5.1); Sodium 137 mmol/L (135-145); Total Protein 6.5 g/dL (6.5-8.0)
--- NOTE | 2024-09-21 03:57 | ED_ITS ---
HPI - Seizure General Chief Complaint: Seizure Stated Complaint: seizure Time Seen by Provider: 09/21/24 03:40 Source: patient and EMS Mode of arrival: EMS Limitations: no limitations History of Present Illness ED Provider: Dr. Barbie Kasper HPI Narrative: Patient comes to the emergency room complaining of having a seizure. According to the patient, he had a seizure that lasted for about 3 minutes. Patient states that he had an aura, stated that before he had the seizure he could feel it coming. Patient states that sometimes he is able to calm himself down and not have a seizure. Patient states that this time he had a seizure, states that the weird things that he was awake the whole time, remembers everything. Even though he reports having a tonic-clonic seizure. Patient's friend reports that the patient was postictal, by the time the patient arrived to emergency room, patient was completely alert and oriented. 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 Patient states that he was here a few days ago, patient's Keppra was increased and states that he has been feeling more nauseous since then. Patient also reports that for months he has not been able to sleep, suffers of insomnia, only sleeps 3-4 hours a day. Patient denies using alcohol or drugs. Seizure History: Yes Related Data Previous Rx's ?Medication ?Instructions ?Recorded levetiracetam 1,000 mg tablet 1,500 mg (1.5 x 1,000 mg) PO BID 04/26/24 (Keppra) 30 days #90 tabs divalproex 250 mg tablet,delayed 750 mg (3 x 250 mg) PO BID 30 days 06/17/24 release #180 tabs meloxicam 15 mg tablet 15 mg PO DAILY #30 tabs 06/17/24 pantoprazole 40 mg tablet,delayed 40 mg PO DAILY 90 days #90 tabs 07/05/24 release ubrogepant 100 mg tablet (Ubrelvy) 50 - 100 mg (0.5 - 1 x 100 mg) PO 07/23/24 ONCE PRN migraine headache 30 days #16 tabs lorazepam 1 mg tablet (Ativan) 0.5 mg (1/2 x 1 mg) PO ONCE PRN 08/31/24 anxiety 30 days #30 tabs dexamethasone 4 mg tablet 4 mg PO BID 30 days #60 tabs 09/06/24 lorazepam 0.5 mg tablet (Ativan) 0.5 mg PO TID PRN aura #10 tabs 09/21/24 Allergies Allergy/AdvReac Type Severity Reaction Status Date / Time No Known Allergies Allergy Verified 09/21/24 02:57 [No Known Allergies*] Review of Systems 2 Review of Systems: Constitutional : No Weight loss, No Fever, No Chills, No Night Sweats, No Fatigue, No Malaise ENT/Mouth : No Hearing loss, No Ear Pain, No Nasal Congestion, No Sinus Pain, No Hoarseness, No sore throat, No Rhinorrhea, No Swallowing Difficulty Eyes: No Eye Pain, No Swelling, No Redness, No Foreign Body, No Discharge, No Vision Changes Cardiovascular : No Chest Pain, No SOB, No Dyspnea on Exertion, No Orthopnea, No Edema, No Palpitations Respiratory : No Cough, No Sputum, No Wheezing, No Smoke Exposure, No Dyspnea Gastrointestinal : No Nausea, No Vomiting, No Diarrhea, No Constipation, No abdominal Pain, No Hematochezia, No Melena Genitourinary : no irregular bleeding, No Dysuria, No Urinary Frequency, No Hematuria, No Urinary Incontinence, No Urgency, No Flank Pain, No Urinary Flow Changes, No Hesitancy Musculoskeletal : No joint pain, No Myalgias, No Joint Swelling Skin : No Skin Lesions, No rash Neuro : Complaining of having a seizure which was tonic-clonic, however patient states that he was awake the whole time? No Weakness, No Numbness, No Paresthesias, No Loss of Consciousness, No Dizziness, No Headache Psych : No Anxiety/Panic, No Depression, No SI/HI/AH/VH, denies using alcohol drugs, Heme/Lymph: No Bruising, No Bleeding,No Lymphadenopathy Endocrine : No Polyuria, No Polydipsia, No Temperature Intolerance PMFSH Past Medical History Medical History Alcohol use disorder History of benign brain tumor Generalized seizure Bipolar 1 disorder Obesity (BMI 30-39.9) Tobacco abuse GERD (gastroesophageal reflux disease) Anxiety and depression Seizure disorder Surgical History H/O brain surgery Family History Family History Other No family history of coronary artery disease Substance use disorder Social History Social History Household Members: None Housing: Apartment Do you presently have visiting nurse or other home services: No Alcohol intake: former Patient Tobacco Use Status: Former Tobacco user Tobacco use type: Cigarette Cigarette Packs Per Day: 1 Cigarettes Per Day: 20.0 Years Smoked: 15 Smoked in Last 30 Days: No e-Cigarette/Vaping Use: Never Used Second Hand Smoke Exposure: Yes Use of substances other than those prescribed or required for medical reasons: No Substance Use Type: Crack/Cocaine Advance Directives: No Advance Directives Information Provided: Yes Do you have a plan to hurt others: No Plan service: No Current occupational status: unemployed Sexual orientation: Straight/Heterosexual Cognitive needs: No Hearing needs: No Vision needs: No Physical Exam 2 Vital Signs: Vital Signs: Last Vital Signs Temp 97.9 F 09/21/24 04:24 Pulse 70 09/21/24 04:24 Resp 16 09/21/24 04:24 BP 102/59 L 09/21/24 04:24 Pulse Ox 96 09/21/24 04:24 O2 Del Method Room Air 09/21/24 04:24 BMI result Body Mass Index 30.9 Const: Other: Appearance: Alert. Oriented X3. No acute distress. Well-appearing Eyes: Pupils equal, round and reactive to light. ENT: Pharynx normal. Neck: Normal inspection. Neck supple. No lymph nodes noted. No crepitus CVS: Normal heart rate and rhythm. Pulses normal. Normal S1 and S2 Respiratory: No respiratory distress. Breath sounds normal. No Wheezing. No rales Abdomen: Soft and nontender. No rigidity. No distention. Skin: Skin warm and dry. Normal skin color. Normal skin turgor. Extremities: No lower extremity edema. No Lacerations. No Rash Neuro: Oriented X 3. No motor deficit. No sensory deficit. Moving all extremities. No slurred speech. CN 2 through 12 grossly intact Psych: calm, cooperative, normal affect Course Course Course Narrative: All of patient's labs pending Medications Administered Generic Name Dose Route Start Last Admin Trade Name Freq PRN Reason Stop Dose Admin Levetiracetam 1,000 mg in 100 mls @ 400 mls/hr 09/21/24 04:15 09/21/24 04:29 Keppra IV 400 mls/hr 0600,1800 BREANNA Administration Discontinued Medications Generic Name Dose Route Start Last Admin Trade Name Lizzy PRN Reason Stop Dose Admin Ondansetron HCl 4 mg 09/21/24 04:04 09/21/24 04:29 Ondansetron Hcl 4 Mg/2 Ml Vial IVPUSH 09/21/24 04:05 4 mg ONCE ONE Administration Medical Decision Making Medical Decision Making [facility] Narrative: My interpretation of labs: Patient's white blood cell count 12.4, chemistry within normal limits. Lactic acid within normal limits -reviewing patient's labs from last visit, valproic acid has not resolved yet, Depakote level within normal limits/therapeutic. -patient's lactic acid within normal limits. Here in the emergency room, patient has been well-appearing, playing on his phone, no seizure-like activity. Patient received 1000 mg of IV Keppra. -I discussed the labs with the patient. Patient states that he feels completely back to normal. Patient has surgery next week for the brain lesion. Patient states that usually he takes lorazepam when he feels the or us coming and most of the time it helps. However, patient states that he is reducing the dose because he is running low. I discussed with the patient that he will be provided with a small prescription of Ativan. Patient will call his neurologist today. -patient's lactic acid today was normal, patient states that while he was having seizures he was completely awake and was aware of what was happening. Unlikely this was a full tonic-clonic seizure. Patient will follow-up with his neurologist. Patient is already on maximum dose of Keppra. -since patient arrived to emergency room, patient had been awake, alert and oriented x3, not postictal Differential Diagnosis Differential Diagnoses: The differential diagnosis associated with the presentation includes (Epileptic Seizure, pseudo-seizure, breakthrough seizure) Admission/Observation Consideration of admission/observation: Escalation of care including admission/observation considered (Given patient's breakthrough seizures, observation was considered.) Lab Data [facility] Lab Attestation statement: I reviewed the patient's lab results. 09/21/24 03:01 09/21/24 03:01 Labs: Lab Results 09/21/24 09/21/24 09/21/24 Range/Units 03:01 03:55 03:59 WBC 12.4 H (4.8-10.8) X10*3/uL RBC 4.91 (4.60-5.80) X10*6/uL Hgb 15.2 (14.0-18.0) g/dl Hct 43.1 (42.0-52.0) % MCV 87.8 (80.0-98.0) fL MCH 31.0 (27.0-33.0) pg MCHC 35.3 (31.0-36.0) g/dl RDW 13.1 (11.0-16.0) % Plt Count 326 (160-400) X10*3/uL MPV 9.1 L (9.4-12.4) fL Immature Gran % (Auto) 0.3 (0.0-0.4) % Neut % (Auto) 64.9 (45-73) % Lymph % (Auto) 27.9 (20-40) % [place] % (Auto) 6.5 (2-11) % Eos % (Auto) 0.2 (0-4) % Baso % (Auto) 0.2 (0-2) % Lymph # (Auto) 3.5 (1.2-4.9) X10*3/uL [place] # (Auto) 0.8 (0.1-1.2) X10*3/uL Eos # (Auto) 0.0 (0.0-0.4) X10*3/uL Baso # (Auto) 0.0 (0.0-0.2) X10*3/uL Abs Immat Gran (auto) 0.04 H (0.00-0.03) X10*3/uL Absolute Neuts (auto) 8.0 (2.0-8.3) x10*3/uL Absolute Nucleated RBC 0.000 (0.0-0.012) X10*3/uL Nucleated RBC % (auto) 0.0 (0.0-0.2) /100WBC Sodium 137 (135-145) mmol/L Potassium 4.6 (3.3-5.1) mmol/L Chloride 106 (96-108) mmol/L Carbon Dioxide 22 (22-29) mmol/L Anion Gap 14 (12-20) BUN 16 (9-16) mg/dL Creatinine 0.99 (0.5-1.4) mg/dL Estim Creat Clear Calc 114.9 Estimated GFR > 60 Random Glucose 117 H (60-115) mg/dL Lactic Acid 1.0 (0.5-2.0) mmol/L Calcium 8.9 (8.4-10.2) mg/dL Total Bilirubin 0.2 (0.0-1.0) mg/dL AST 24 (5-37) U/L ALT 16 (0-40) U/L Alkaline Phosphatase 35 L (39-117) U/L Total Protein 6.5 (6.5-8.0) g/dL Albumin 3.4 L (3.5-5.0) g/dL Valproic Acid 38.3 L (50.0-100.0) mcg/mL Ethyl Alcohol < 10 mg/dL Critical Care Time Critical Care Time Critical Care Time: Yes Total Critical Care Time: 60 Attestation: I have personally provided critical care time. Time includes review of lab data, radiology results, discussion with consultants, and monitoring for potential decompensation. Intervention performed as documented. Discharge Plan Discharge Clinical Impression: Breakthrough seizure Patient Disposition: Home, Self-Care Instructions: Recurrent Seizures in Adults (ED) Additional Instructions: Please follow-up with your primary care physician tomorrow. If you have any worsening or new symptoms, please return to the emergency room or call 911 Prescriptions: New lorazepam [Ativan] 0.5 mg tablet 0.5 mg PO TID PRN (Reason: aura) Qty: 10 0RF No Action levetiracetam [Keppra] 1,000 mg tablet 1,500 mg PO BID 30 Days Qty: 90 6RF meloxicam 15 mg tablet 15 mg PO DAILY Qty: 30 0RF divalproex 250 mg tablet,delayed release (DR/EC) 750 mg PO BID 30 Days Qty: 180 2RF pantoprazole 40 mg tablet,delayed release (DR/EC) 40 mg PO DAILY 90 Days Qty: 90 0RF lorazepam [Ativan] 1 mg tablet 0.5 mg PO ONCE MDD 1 tab PRN (Reason: anxiety) 30 Days Qty: 30 3RF dexamethasone 4 mg tablet 4 mg PO BID 30 Days Qty: 60 0RF Ubrelvy 100 mg tablet 50 - 100 mg PO ONCE PRN (Reason: migraine headache) 30 Days Qty: 16 3RF Rx Instructions: take at onset of migraine, may repeat in 2hrs (may take w/ Ibuprofen) Print Language: Kinyarwanda
[2024-09-21 04:12] LABS: Ethanol < 10 mg/dL
[2024-09-21 04:24] VITALS: BP 102/59; PULSE 70; RESP 16; TEMP 36.6; O2SAT 96
[2024-09-21] MEDS: levETIRAcetam in NaCl (iso-os) 1,000 MG/100 ML PIGGYBACK 400 MG IV (04:29)
[2024-09-21] MEDS: ondansetron HCL 4 MG/2 ML VIAL IVPUSH (04:29)
[2024-09-21 04:31] LABS: Valproate 38.3 mcg/mL (50.0-100.0)
[2024-09-21 05:18] VITALS: BP 102/59; PULSE 70; RESP 16; TEMP 36.6; O2SAT 96
[2024-09-26 20:19] LABS: Levetiracetam Keppra 12.2 mcg/mL (6.0-46.0)
== END 2024-09-21 05:19 | disposition home or self-care (01) ==
PROVIDERS: Emergency Provider Emergency Medicine
DX: R56.9 Unspecified convulsions (principal); R94.31 Abnormal electrocardiogram [ECG] [EKG]; Z51.81 Encounter for therapeutic drug level monitoring; Z79.899 Other long term (current) drug therapy
CPT/HCPCS: 36415; 80053; 80164; 80177; 80307; 83605; 85025; 93005; 96365; 96375; 99284; 99285; J1953; J2405

== ENCOUNTER → 2024-09-21 02:56 | Outpatient (BNV) | payer OTHER, SELFPAY | PROVIDERS: Emergency Provider Emergency Medicine; Visit Provider Internal Medicine | DX: I45.10 Unspecified right bundle-branch block (principal) | CPT/HCPCS: 93010 ==

== ENCOUNTER 2024-10-15 10:13 | Emergency (ER) | payer OTHER, SELFPAY ==
--- NOTE | ~2024-10-15 | XR_ITS ---
EXAMINATION: XR CHEST CLINICAL INFORMATION: seizure COMPARISON: Radiographs 09/02/2024 TECHNIQUE: Frontal view of the chest was obtained. FINDINGS: Linear atelectasis at the left lung base. Lungs appear otherwise clear. Stable cardiomediastinal silhouette. XR/XR chest 1V IMPRESSION: Linear atelectasis at the left lung base. Electronically signed by: Ector Aguilar MD 10/15/2024 02:22 PM JAYSON
[2024-10-15 10:21] VITALS: BP 115/76; PULSE 86; RESP 16; TEMP 36.6; O2SAT 98; BMI 28.3
--- NOTE | 2024-10-15 11:28 | ECG_ITS ---
Test Reason : WITHDRAWAL Blood Pressure : / mmHG Vent. Rate : 078 BPM Atrial Rate : 078 BPM P-R Int : 162 ms QRS Dur : 102 ms QT Int : 366 ms P-R-T Axes : 037 033 035 degrees QTc Int : 417 ms Normal sinus rhythm Normal ECG When compared with ECG of 21-SEP-2024 02:56, Incomplete right bundle branch block is no longer Present Referred By: Faina Arauz Electronically Signed By:VELIA ALMANZAR MD
[2024-10-15] MEDS: LORazepam 1 MG TABLET PO (11:42)
[2024-10-15 11:53] LABS: MANUAL DIFF FLAG NO
--- NOTE | 2024-10-15 11:53 | ED.GENADULT ---
HPI - General Adult General Chief complaint: General Medical Stated complaint: withdrawls Time Seen by Provider: 10/15/24 11:09 Source: patient, RN notes reviewed and old records reviewed Mode of arrival: ambulatory History of Present Illness ED Provider: Faina Arauz PA-C HPI narrative: 39-year-old male with a past medical history of ETOH use disorder, brain tumor s/p excision, bipolar, GERD, anxiety and depression, seizure disorder on Keppra, Valproate, and Ativan, presenting to the ED complaining of feeling unwell since last night. Admits to having breakthrough seizure last night without head trauma. Reports compliance with antiepileptics. Last took Ativan last night, reports taking about 4 mg of Ativan daily, split up (Rx 1mg tabs), states he ran out of his medication, called his doctor today and there will be a refill at the pharmacy however was feeling too unwell to wait for the prescription. Does report mild cough/ URI symptoms. Denies CP/SOB, headache, nausea /vomiting, weakness Related Data Previous Rx's ?Medication ?Instructions ?Recorded levetiracetam 1,000 mg tablet 1,500 mg (1.5 x 1,000 mg) PO BID 04/26/24 (Keppra) 30 days #90 tabs divalproex 250 mg tablet,delayed 750 mg (3 x 250 mg) PO BID 30 days 06/17/24 release #180 tabs meloxicam 15 mg tablet 15 mg PO DAILY #30 tabs 06/17/24 pantoprazole 40 mg tablet,delayed 40 mg PO DAILY 90 days #90 tabs 07/05/24 release ubrogepant 100 mg tablet (Ubrelvy) 50 - 100 mg (0.5 - 1 x 100 mg) PO 07/23/24 ONCE PRN migraine headache 30 days #16 tabs dexamethasone 4 mg tablet 4 mg PO BID 30 days #60 tabs 09/06/24 lorazepam 0.5 mg tablet (Ativan) 0.5 mg PO TID PRN aura #10 tabs 09/21/24 lorazepam 1 mg tablet (Ativan) 1 mg PO BID PRN seizure activity 7 09/26/24 days #14 tabs Allergies Allergy/AdvReac Type Severity Reaction Status Date / Time No Known Allergies Allergy Verified 10/15/24 10:22 [No Known Allergies*] Review of Systems Review of Systems: Yes all other systems are reviewed and are negative Constitutional: Constitutional: Reports as per HPI Neurologic: Denies Abnormal speech present PMFSH Past Medical History Attestation statement: The following information was validated with the patient. Source: old records reviewed Medical History Alcohol use disorder History of benign brain tumor Generalized seizure Bipolar 1 disorder Obesity (BMI 30-39.9) Tobacco abuse GERD (gastroesophageal reflux disease) Anxiety and depression Seizure disorder Surgical History H/O brain surgery Family History Family History Other No family history of coronary artery disease Substance use disorder Social History Social History Household Members: None Housing: Apartment Do you presently have visiting nurse or other home services: No Alcohol intake: former Patient Tobacco Use Status: Former Tobacco user Tobacco use type: Cigarette Cigarette Packs Per Day: 1 Cigarettes Per Day: 20.0 Years Smoked: 15 Smoked in Last 30 Days: No e-Cigarette/Vaping Use: Never Used Second Hand Smoke Exposure: Yes Use of substances other than those prescribed or required for medical reasons: No Substance Use Type: Crack/Cocaine Advance Directives: No Advance Directives Information Provided: Yes Do you have a plan to hurt others: No Plan service: No Current occupational status: unemployed Sexual orientation: Straight/Heterosexual Cognitive needs: No Hearing needs: No Vision needs: No Physical Exam ED Vital Signs: Vital Signs - 24 hr 10/15/24 10:21 10/15/24 12:30 10/15/24 14:13 Temperature 97.8 F 98.1 F 97.4 F Pulse Rate 86 59 72 Respiratory Rate 16 16 16 Blood Pressure 115/76 175/78 H 103/65 Pulse Oximetry 98 98 96 Oxygen Delivery Method Room Air Room Air Room Air 10/15/24 14:14 Temperature 97.4 F Pulse Rate 72 Respiratory Rate 16 Blood Pressure 103/65 Pulse Oximetry 96 Oxygen Delivery Method Room Air BMI result Body Mass Index 28.3 Const General: cooperative, healthy appearing and no acute distress Orientation/consciousness: patient oriented x3 Limitations: no limitations HENMT Head: Yes normal to inspection and Yes atraumatic Ears: hearing grossly normal bilaterally General nose exam: Normal external nose present Face and sinus: Yes normal facial exam Mouth: Normal oral and palatal mucosa present Throat: Yes posterior oropharynx normal Eyes General: appearance normal, both eyes and all related structures Pupils: Equal, round and reactive pupils present EOM: EOMs intact bilaterally Neck Neck: Yes normal visual inspection and Yes no meningeal signs Resp Effort & Inspection: normal respiratory effort and no respiratory distress Auscultation: clear to auscultation bilaterally, no crackles, no rhonchi and no wheezes Cardio Rate: regular rate Heart sounds: S1 normal heart sound present and S2 normal heart sound present GI Inspection: Yes normal to inspection Palpation (GI): Soft to palpation, nontender, no guarding and not rigid General: Yes no CVA tenderness Back/Spine/Pelvis Other: No midline cervical/thoracic/lumbar spinous tenderness/step-off or deformity Back: no CVA tenderness Skin Rashes: no rashes Wounds: no wounds Neuro General: patient oriented x3, gait normal, tone normal, moves all extremities, no meningeal signs, no focal motor deficits and CN's II-XI intact bilaterally Cranial nerves: Yes CN's II-XII intact bilaterally, Yes Equal, round and reactive pupils present and Yes Bilaterally intact EOM present Cognition (Neuro): normal cognition Speech: No Abnormal speech present Gait exam (Neuro): Normal gait present Motor exam (neuro): 5/5 motor strength present throughout Extrem General: Yes normal to inspection Course Course Course Narrative: - labs reassuring, UA negative - valproic acid level therapeutic. Tox screen positive for oxycodone, not positive for benzos - ethanol -- viral studies negative >> chest x-ray still pending, patient would like to leave prior to official x-ray results. Have already reached out to [place] [facility] for official read. Patient will leave without completing treatment Results discussed with patient including worrisome signs and symptoms and strict return precautions, and when to return to the emergency department. They verbalized understanding and feel safe for discharge at this time. 7385--XR chest 1V IMPRESSION: Linear atelectasis at the left lung base. Medications Administered Discontinued Medications Generic Name Dose Route Start Last Admin Trade Name Freq PRN Reason Stop Dose Admin Lorazepam 1 mg 10/15/24 11:28 10/15/24 11:42 Lorazepam 1 Mg Tablet PO 10/15/24 11:29 1 mg ONCE ONE Administration Medical Decision Making Medical Decision Making [facility] Narrative: 39-year-old male with a past medical history of ETOH use disorder, brain tumor s/p excision, bipolar, GERD, anxiety and depression, seizure disorder on Keppra, Valproate, and Ativan, presenting to the ED complaining of feeling unwell since last night. Admits to having breakthrough seizure last night without head trauma. on exam vital signs stable, NAD, nontoxic appearing, no focal neuro deficits, exam otherwise benign. Concern for breakthrough seizure vs infectious/metabolic etiologies vs Ativan abuse/miss use vs ?potential withdrawal. Low suspicion for ICH /fractures Plan: EKG, labs, UA, tox screen, CXR, viral studies, re-evaluate On mass pat review patient filled 30 tabs, (60 day supply) of 1 mg Ativan on 10/02/2024 Please refer to course for remaining clinical decision making, interpretation of labs/imaging results, and discussions with consultants and/or family members. Differential Diagnosis Differential Diagnoses: The differential diagnosis associated with the presentation includes As above Admission/Observation Consideration of admission/observation: Escalation of care including admission/observation considered Lab Data [facility] Lab Attestation statement: I reviewed the patient's lab results. 10/15/24 11:48 10/15/24 11:48 Labs: Lab Results 10/15/24 10/15/24 Range/Units 11:48 12:12 WBC 7.1 (4.8-10.8) X10*3/uL RBC 5.18 (4.60-5.80) X10*6/uL Hgb 15.8 (14.0-18.0) g/dl Hct 45.3 (42.0-52.0) % MCV 87.5 (80.0-98.0) fL MCH 30.5 (27.0-33.0) pg MCHC 34.9 (31.0-36.0) g/dl RDW 12.3 (11.0-16.0) % Plt Count 273 (160-400) X10*3/uL MPV 9.1 L (9.4-12.4) fL Immature Gran % (Auto) 0.4 (0.0-0.4) % Neut % (Auto) 48.3 (45-73) % Lymph % (Auto) 42.5 H (20-40) % Warren % (Auto) 7.0 (2-11) % Eos % (Auto) 1.4 (0-4) % Baso % (Auto) 0.4 (0-2) % Lymph # (Auto) 3.0 (1.2-4.9) X10*3/uL Warren # (Auto) 0.5 (0.1-1.2) X10*3/uL Eos # (Auto) 0.1 (0.0-0.4) X10*3/uL Baso # (Auto) 0.0 (0.0-0.2) X10*3/uL Abs Immat Gran (auto) 0.03 (0.00-0.03) X10*3/uL Absolute Neuts (auto) 3.4 (2.0-8.3) x10*3/uL Absolute Nucleated RBC 0.000 (0.0-0.012) X10*3/uL Nucleated RBC % (auto) 0.0 (0.0-0.2) /100WBC Sodium 137 (135-145) mmol/L Potassium 4.0 (3.3-5.1) mmol/L Chloride 101 (96-108) mmol/L Carbon Dioxide 32 H (22-29) mmol/L Anion Gap 8 L (12-20) BUN 11 (9-16) mg/dL Creatinine 1.03 (0.5-1.4) mg/dL Estim Creat Clear Calc 109.4 Estimated GFR > 60 Random Glucose 81 (60-115) mg/dL Calcium 9.1 (8.4-10.2) mg/dL Magnesium 1.8 (1.6-2.6) mg/dL Total Bilirubin 0.4 (0.0-1.0) mg/dL Direct Bilirubin 0.1 (0.0-0.5) mg/dL AST 16 (5-37) U/L ALT 16 (0-40) U/L Alkaline Phosphatase 37 L (39-117) U/L Total Protein 6.2 L (6.5-8.0) g/dL Albumin 3.4 L (3.5-5.0) g/dL Hold Yellow Top See Note Urine Color Yellow Urine Appearance Clear Urine pH 7.0 (5.0-9.0) Ur Specific [place] 1.010 (1.005-1.025) Urine Protein Negative (Neg-Trace) mg/dL Urine Glucose (UA) Negative (Negative) mg/dL Urine Ketones Negative (Negative) mg/dL Urine Blood Negative (Negative) Urine Nitrite Negative (Negative) Ur Leukocyte Esterase Negative (Negative) Urine Opiates Screen Not Detected (Not Detect) Ur Buprenorphine Scrn Not Detected (Not Detect) ng/mL Ur Oxycodone Screen Positive H (Not Detect) ng/mL Urine Methadone Screen Not Detected (Not Detect) ng/mL Urine Fentanyl Screen Not Detected (Not Detect) Ur Barbiturates Screen Not Detected (Not Detect) Valproic Acid 62.8 (50.0-100.0) mcg/mL Ur Phencyclidine Scrn Not Detected (Not Detect) Ur Amphetamines Screen Not Detected (Not Detect) U Benzodiazepines Scrn Not Detected (Not Detect) Urine Cocaine Screen Not Detected (Not Detect) U Marijuana (THC) Screen Not Detected (Not Detect) Ethyl Alcohol 14 mg/dL Influenza Type A (PCR) NEGATIVE (Negative) Influenza Type B (PCR) NEGATIVE (Negative) RSV RNA Qual (PCR) NEGATIVE (Negative) SARS-CoV-2 RNA (RT-PCR) NEGATIVE (Negative) Independent Interpretation I performed an independent interpretation of an: EKG and Plain X-Ray Radiology Impression Discussion of test interpretation with radiology: I have reviewed the radiologist's reading. External Record Review External record reviewed: Inpatient record, Office record, Outpatient record, Prior outpatient labs, Prior outpatient radiology, Primary care record and Outside ED record Tests considered The following testing was considered but not selected: As above Chronic Conditions Patient?s care impacted by: Other ( seizures) Social Determinants Patient?s care significantly limited by Social Determinants of Health including: Alcoholism and drug addiction in family, Problems related to primary support group and Other Social Determinant of Health Discharge Plan Discharge Clinical Impression: Seizure disorder Patient Disposition: Home, Self-Care Instructions: Epilepsy (DC) Additional Instructions: your blood work and urine are reassuring Continue home prescribed medications Please avoid alcohol and drug use Follow-up with her doctor, please call your neurologist If her symptoms persist or worsen you have continued breakthrough seizures return to the ED immediately Prescriptions: No Action levetiracetam [Keppra] 1,000 mg tablet 1,500 mg PO BID 30 Days Qty: 90 6RF meloxicam 15 mg tablet 15 mg PO DAILY Qty: 30 0RF divalproex 250 mg tablet,delayed release (DR/EC) 750 mg PO BID 30 Days Qty: 180 2RF pantoprazole 40 mg tablet,delayed release (DR/EC) 40 mg PO DAILY 90 Days Qty: 90 0RF dexamethasone 4 mg tablet 4 mg PO BID 30 Days Qty: 60 0RF lorazepam [Ativan] 1 mg tablet 1 mg PO BID MDD 2 tabs PRN (Reason: seizure activity) 7 Days Qty: 14 0RF lorazepam [Ativan] 0.5 mg tablet 0.5 mg PO TID PRN (Reason: aura) Qty: 10 0RF Ubrelvy 100 mg tablet 50 - 100 mg PO ONCE PRN (Reason: migraine headache) 30 Days Qty: 16 3RF Rx Instructions: take at onset of migraine, may repeat in 2hrs (may take w/ Ibuprofen) Referrals: Po,Marilyn Sesay MD [Primary Care Provider] - 3 days Interventions: ED Discharge Assessment Last Done: 10/15/24 14:14 Discharge Date/Time: 10/15/24 14:15 Print Language: Telugu
[2024-10-15 11:57] LABS: Appearance Urine Clear; Color Urine Yellow; Glucose Urine UA Negative (Negative); Leukocyte Esterase Urine Negative (Negative); Nitrite Urine Negative (Negative); Urine Blood Negative (Negative); Urine Ketones Negative (Negative); Urine Protein Negative (Neg-Trace)
[2024-10-15 12:01] LABS: Basophils Percent Auto 0.4 % (0-2); Eosinophils Absolute Auto 0.1 X10*3/uL (0.0-0.4); Eosinophils Percent Auto 1.4 % (0-4); Hematocrit 45.3 % (42.0-52.0); Hemoglobin 15.8 g/dl (14.0-18.0); Imm Gran Abs Auto 0.03 X10*3/uL (0.00-0.03); Imm Gran Pct Auto 0.4 % (0.0-0.4); Lymphocytes Percent Auto 42.5 % (20-40); Mean Corpuscular HGB Conc 34.9 g/dl (31.0-36.0); Mean Corpuscular Hemoglobin 30.5 pg (27.0-33.0); Mean Corpuscular Volume 87.5 fL (80.0-98.0); Mean Platelet Volume 9.1 fL (9.4-12.4); Monocytes Absolute Auto 0.5 X10*3/uL (0.1-1.2); Neutrophils Absolute Auto 3.4 x10*3/uL (2.0-8.3); Neutrophils Percent Auto 48.3 % (45-73); Platelet Count 273 X10*3/uL (160-400); Red Blood Count 5.18 X10*6/uL (4.60-5.80); Red Cell Distribution Width 12.3 % (11.0-16.0); White Blood Count 7.1 X10*3/uL (4.8-10.8)
--- NOTE | 2024-10-15 12:07 | PC.NURSE ---
a&ox4. vss and up to date. nsr on the personnel monitor. seizure pads in place for safety precautions. pt presents to the ED today s/p unwitnessed seizure at home last night. denies headstrike/incontinence/trauma. pt endorses being compliant w/ epileptic medication. recent surgery to right side of brain x last week. pt notes he was prescribed ativan to help w/ breakthrough seizures. pt reports instead of using it PRN, he has been using it more frequently than he should. pt states he has a new rx that can be picked up tomorrow but he presents today d/t feeling generally unwell. 20gIV placed in the left AC - labs obtained/sent to lab. medication administered per provider order. chest xray completed. on RA w/o difficulty - no sob/wob noted. respirations even/unlabored. lights dimmed to prevent stimuli. plan of care ongoing. call andrews placed within reach.
[2024-10-15 12:10] LABS: Amphetamine Screen Urine Not Detected (Not Detect); Barbiturates, Urine Not Detected (Not Detect); Benzodiazepines Screen Urine Not Detected (Not Detect); Buprenorphine Scr Not Detected (Not Detect); Cannabinoid Screen Urine Not Detected (Not Detect); Cocaine Screen Urine Not Detected (Not Detect); Fentanyl, urine Not Detected (Not Detect); Methadone Screen, Urine Not Detected (Not Detect); Opiate Screen Urine Not Detected (Not Detect); Oxycodone Screen Urine Positive (Not Detect); Phencyclidine Screen Urine Not Detected (Not Detect)
[2024-10-15 12:13] LABS: Alanine Aminotransferase 16 U/L (0-40); Albumin Level 3.4 g/dL (3.5-5.0); Alkaline Phosphatase 37 U/L (39-117); Anion Gap 8 (12-20); Aspartate Amino Transferase 16 U/L (5-37); Bilirubin Direct 0.1 mg/dL (0.0-0.5); Bilirubin Total 0.4 mg/dL (0.0-1.0); Blood Urea Nitrogen 11 mg/dL (9-16); Calcium 9.1 mg/dL (8.4-10.2); Carbon Dioxide 32 mmol/L (22-29); Chloride 101 mmol/L (96-108); Creatinine Clr Calc Pharmacy 109.4; Estimated Glomerular Filt Rate > 60; Ethanol 14 mg/dL; Glucose Random 81 mg/dL (60-115); Magnesium 1.8 mg/dL (1.6-2.6); Sodium 137 mmol/L (135-145); Total Protein 6.2 g/dL (6.5-8.0)
[2024-10-15 12:30] VITALS: BP 175/78; PULSE 59; RESP 16; TEMP 36.7; O2SAT 98
[2024-10-15 12:31] LABS: Valproate 62.8 mcg/mL (50.0-100.0)
[2024-10-15 12:55] LABS: Influenza A PCR NEGATIVE (Negative); Influenza B PCR NEGATIVE (Negative); Resp Syncy Virus RNA Qual PCR NEGATIVE (Negative); SARS COV2 PCR INHOUSE NEGATIVE (Negative)
[2024-10-15 14:13] VITALS: BP 103/65; PULSE 72; RESP 16; TEMP 36.3; O2SAT 96
--- NOTE | 2024-10-15 14:13 | PC.NURSE ---
pt verbalizing that he does not want to wait for xray results to come back and wants to leave facility. provider notified/aware. discharge vitals obtained. IV access discontinued.
[2024-10-15 14:14] VITALS: BP 103/65; PULSE 72; RESP 16; TEMP 36.3; O2SAT 96
[2024-10-19 21:48] LABS: Levetiracetam Keppra 45.5 mcg/mL (6.0-46.0)
== END 2024-10-15 14:15 | disposition home or self-care (01) ==
PROVIDERS: Physician Assistant; Emergency Provider Emergency Medicine; PCP Internal Medicine
DX: G40.909 Epilepsy, unspecified, not intractable, without status epilepticus (principal); Z03.818 Encounter for observation for suspected exposure to other biological agents ruled out; R05.9 Cough, unspecified; Z87.891 Personal history of nicotine dependence; Z79.899 Other long term (current) drug therapy
CPT/HCPCS: 0241U; 36415; 71045; 80048; 80076; 80164; 80177; 80307; 81003; 83735; 85025; 93005; 99283; 99284

== ENCOUNTER → 2024-10-15 11:28 | Outpatient (BNV) | payer OTHER, SELFPAY | PROVIDERS: Emergency Provider Emergency Medicine; PCP Internal Medicine; Visit Provider Internal Medicine Cardiovascular Disease | DX: F13.230 Sedative, hypnotic or anxiolytic dependence with withdrawal, uncomplicated (principal) | CPT/HCPCS: 93010 ==

== ENCOUNTER 2025-02-04 09:37 | Outpatient (AMB) | payer OTHER, SELFPAY ==
--- NOTE | 2025-02-04 08:57 | MHC.OFFVIS ---
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 Since the last visit, patient reestablished care with Dr. Black neurosurgery at [facility]. He underwent a right frontoparietal craniotomy for resection of recurrent tumor on 09/29/24?by Dr. Black. 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 He is currently followed by Dr Osborn, [facility] Oncology, and Radiation Oncology. Patient is currently undergoing right frontal radiation therapy, which he states he is tolerating well though it can cause some very mild headache or fatigue. Upon completion of radiation, patient is to start chemotherapy. He was advised to have a port placed, however patient decided that he would wait until his radiation therapy was completed. Plan also included obtaining PFTs, however patient stated he did not know about this. He states he will talk to them about this later this week at his follow-up appointment. He was also encouraged to stop smoking, however patient states he was doing good would not smoking, but then became anxious and started smoking again. He endorses havingi multiple boxes of nicotine patches at home. He is not currently followed by a therapist or psychiatrist, although he is open to this. Since the tumor resection, patient states he had 1 episode of feeling out of it that possibly could have been a seizure shortly after the surgical procedure. However, otherwise denies interval seizure activity since tumor resection in September. He denies any significant headaches at this point. He does note some residual left 2nd finger tingling and distal yellowish discoloration. He is compliant with Keppra 1500 mg twice a day and Depakote 750 mg twice a day. He denies any interval headaches, to the extent that he returned the Ubrelvy to his pharmacy. Now using an occasional Tylenol p.r.n. with effect. He does continue to take lorazepam typically 0.5 mg t.i.d., may take 1 extra dose a day. At this point he is using the lorazepam to treat anxiety. Previous HPI, 07/23/2024: Pt reports he has had intentional weight loss- through diet, limiting but not avoiding carbs. Also exercising more- walking, some weight training, calisthenics. 73 EEG was unremarkable. 05/31/24, MR/MR head/brain wo/w con IMPRESSION: There are chronic postoperative changes within the right supratentorial compartment with a surgical resection cavity at the junction of the right frontal and parietal lobes. 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 No pathological enhancement is demonstrated on postcontrast images. Comparison with prior imaging is recommended if available. No substantial intracranial mass effect or hydrocephalus. Upon review of the brain MRI report, we did refer pt back to [facility] neurosurgery. Pt states he has an appt in Aug. It is unclear if this appt is w/ neurosurgery or w/ the epilepsy clinci as pt has started to see them as well. Note at last [facility] neurology visit, pt was asked to have labs/levels drawn, however he has not done these yet. He states he is having increased in his left sided seizures. He states he has been having days w/ up to 4 seizures in a day. After the seizures, he feels jittery and has cognitive difficulties. Pt states he had a seizure during the 2nd day of the EEG. He has not had a full convulsive seizure. He is having more intense right side migraines, like before he had his brain surgery. The migraine headache is a pressure in right side a/w photophobia, phonophobia, nausea, difficult to breathe. The migraine can come before the seizures. lasts 45 minutes if he can sit and relax, or can last all day. Initial HPI, 04/12/24: He describes the milder left sided seizure as: Starts w/ a sense of emilie vu, feels like he is gasping for air, his breathing becomes more shallow, then left side of the body locks up, like a spams not a/w LOC- lasts at most 2-3 minutes, post-ictal left facial numbness and dizziness. If he has repeated attacks, the attacks will be stronger. Triggers for this include stress, lack of sleep, but he is not sure. He is having more of these episodes- up to 4-5 attacks in a day. His describes the grand-mal seizure as: He will feel like he is in a dream, has emilie vu, he will feel dizzy. He has LOC, mouth foaming, left leg shaking, tongue biting. No intraictal incontinence. The seizure lasts a few minutes, Takes him 20-30 minutes or so to come to. He has had 2 attacks in the last couple of weeks. Prior he had 2 attacks in the last year, and prior could go years w/o having grand-mal seizures. [facility] Medical History Alcohol use disorder History of benign brain tumor Generalized seizure Bipolar 1 disorder Obesity (BMI 30-39.9) Tobacco abuse GERD (gastroesophageal reflux disease) Anxiety and depression Seizure disorder Surgical History H/O brain surgery Family History Other No family history of coronary artery disease Substance use disorder Social History Household Members: None Housing: Apartment Do you presently have visiting nurse or other home services: No Alcohol intake: former Patient Tobacco Use Status: Former Tobacco user Tobacco use type: Cigarette Cigarette Packs Per Day: 1 Cigarettes Per Day: 20.0 Years Smoked: 15 e-Cigarette/Vaping Use: Never Used Second Hand Smoke Exposure: Yes Substance Use Type: Crack/Cocaine service: No Current occupational status: unemployed Sexual orientation: Straight/Heterosexual Cognitive needs: No Hearing needs: No Vision needs: No Physical Exam Const General: cooperative and no acute distress Orientation/consciousness: patient oriented x3 Resp Effort & Inspection: normal respiratory effort and able to speak in complete sentences Neuro General: patient oriented x3 Cognition (Neuro): normal cognition Psych Appearance: grossly normal Mental Status: mental status grossly normal Speech and movement: Normal speech and movement present Affect: normal affect Attitude: cooperative Telehealth Telehealth Telehealth Platform: [facility] Location of provider rendering services: practice address Location of patient: address on file Patient Identification confirmed using: Name, : Yes Telehealth method: video Patient verbally consented to treatment: Yes Patient verbally consented to billing insurance company: Yes Patient informed of any privacy concerns related to visit: Yes Minutes spent on Phone/Video with Pt.: 16 Assessment & Plan Assessment & Plan (1) Seizure disorder: Code(s): G40.909 - Epilepsy, unspecified, not intractable, without status epilepticus Category: Medical (2) Migraine without aura: Code(s): G43.009 - Migraine without aura, not intractable, without status migrainosus Category: Medical (3) Oligodendroglioma of brain: Comment: s/p right frontoparietal craniotomy for resection of recurrent tumor on 09/29/[address] 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 Patient encouraged to have port placement as advised. Reviewed risks of tobacco use in regards to cancer risk as well as inflammation and wound healing. Patient will talk to oncology team this week regarding proposed PFTs. We will refer patient for psychotherapy. For seizure disorder: 09/30/2024 Depakote level- 67, WNL, at [facility]. Continue Levetirectam 1500mg bid Continue Valproic acid 750mg bid- may be benefitting headache/migraine as well. Continue Lorazepam 0.5mg t.i.d. and 0.5 mg q.d. p.r.n.- now using primarily for anxiety. Check follow-up CBC and CMP and Depakote level. Future considerations- adjusting levetiracetam with vitamin B6. For acute migraine tx: Improved status post oligodendroglioma resection. Patient has discontinued Ubrogepant (Ubrelvy) 100mg tab. May continue Tylenol 650-a 1000 mg every 4-6 hours as needed. Pt to follow-up in 6 months or sooner prn. Orders: Orders Complete Blood Count Auto Diff Today C71.9 - Malignant neoplasm of brain, unspecified, G40.909 - Epilepsy, unspecified, not intractable, without status epilepticus Comprehensive Met. Panel Today C71.9 - Malignant neoplasm of brain, unspecified, G40.909 - Epilepsy, unspecified, not intractable, without status epilepticus Valproate Today C71.9 - Malignant neoplasm of brain, unspecified, G40.909 - Epilepsy, unspecified, not intractable, without status epilepticus Referrals Psychology Referral C71.9 - Malignant neoplasm of brain, unspecified, F41.9 - Anxiety disorder, unspecified Medications: Refilled levetiracetam (Keppra) 1,500 mg (1.5 x 1,000 mg) PO BID 30 days 90 tabs 6RF lorazepam (Ativan) 0.5 - 1 mg (0.5 - 1 x 1 mg) PO TID 30 days PRN 60 tabs 3RF seizure activity MDD 2 tabs C71.9 - Malignant neoplasm of brain, unspecified, G40.909 - Epilepsy, unspecified, not intractable, without status epilepticus divalproex 750 mg (3 x 250 mg) PO BID 30 days 180 tabs 6RF Discontinued lorazepam (Ativan) Discontinued Reason: Doctor's Order 0.5 mg PO TID PRN 10 tabs 0RF aura ubrogepant (Ubrelvy) take at onset of migraine, may repeat in 2hrs (may take w/ Ibuprofen) Discontinued Reason: Doctor's Order 50 - 100 mg (0.5 - 1 x 100 mg) PO ONCE 30 days PRN 16 tabs 3RF migraine headache Coding Level of Care Code Tele Est Pt Level 4 (74065) Diagnoses Seizure disorder G40.909 Migraine without aura G43.009 Oligodendroglioma of brain C71.9 Nicotine use disorder F17.200 Anxiety F41.9
== END 2025-02-04 12:12 | disposition home or self-care (01) ==
LOC: HO.HSMS 09:37
PROVIDERS: PCP Internal Medicine; Visit Provider Nurse Practitioner Family
DX: G40.909 Epilepsy, unspecified, not intractable, without status epilepticus (principal); G43.009 Migraine without aura, not intractable, without status migrainosus; C71.9 Malignant neoplasm of brain, unspecified; F17.200 Nicotine dependence, unspecified, uncomplicated; F41.9 Anxiety disorder, unspecified
CPT/HCPCS: 99214

== ENCOUNTER 2025-07-28 10:06 | Inpatient (IN) | payer OTHER, SELFPAY ==
[2025-07-28 10:13] VITALS: BP 122/72; PULSE 76; BMI 23.6
[2025-07-28 10:32] VITALS: BP 109/63; PULSE 80; RESP 16; TEMP 37.1; O2SAT 98
--- NOTE | 2025-07-28 10:41 | ECG_ITS ---
Test Reason : RO PROLONG QTC Blood Pressure : */* mmHG Vent. Rate : 73 BPM Atrial Rate : 73 BPM P-R Int : 160 ms QRS Dur : 120 ms QT Int : 390 ms P-R-T Axes : 51 68 57 degrees QTcB Int : 429 ms Normal sinus rhythm Non-specific intra-ventricular conduction delay Borderline ECG When compared with ECG of 15-Oct-2024 11:34, QRS duration has increased Referred By: Liseth Scott Electronically Signed By: Andi Kincaid
--- NOTE | 2025-07-28 10:44 | ED.GENADULT ---
HPI - General Adult General Chief complaint: Psychiatric Symptoms Stated complaint: SI Time Seen by Provider: 07/28/25 10:34 Source: patient and EMS Mode of arrival: EMS Limitations: no limitations History of Present Illness ED Provider: Liseth Scott PA-C HPI narrative: Patient is a 40 year old assigned male at with a history of seizures on keppra + valporic acid, alcohol use, recurrent brain tumor presenting to the emergency department today with suicidal ideation. Patient states that he is feeling suicidal. Patient denies other complaints at this time. Patient states that he took his medication today as prescribed. Related Data Previous Rx's ?Medication ?Instructions ?Recorded pantoprazole 40 mg tablet,delayed 40 mg PO DAILY 90 days #90 tabs 07/05/24 release dexamethasone 4 mg tablet 4 mg PO BID 30 days #60 tabs 09/06/24 divalproex 250 mg tablet,delayed 750 mg (3 x 250 mg) PO BID 30 days 02/04/25 release #180 tabs levetiracetam 1,000 mg tablet 1,500 mg (1.5 x 1,000 mg) PO BID 02/04/25 (Keppra) 30 days #90 tabs lorazepam 1 mg tablet (Ativan) 0.5 - 1 mg (0.5 - 1 x 1 mg) PO TID 06/13/25 PRN seizure activity 30 days #60 tabs Allergies Allergy/AdvReac Type Severity Reaction Status Date / Time No Known Allergies (No Known Allergy Verified 07/28/25 10:31 Allergies*) Review of Systems Constitutional: Constitutional: Reports as per HPI Eyes: Eyes: Reports as per HPI ENT: Reports as per HPI Cardiovascular: Cardiovascular: Reports as per HPI Respiratory: Respiratory: Reports as per HPI Gastrointestinal: Gastrointestinal: Reports as per HPI Genitourinary: Genitourinary: Reports as per HPI Musculoskeletal: Musculoskeletal: Reports as per HPI Integumentary/Breasts: Skin/Breast: Reports as per HPI Neurologic: Reports as per HPI Psychiatric: Psychiatric: Denies homicidal ideation and Reports suicidal ideation Endocrine: Endocrine: Reports as per HPI Hematologic/Lymphatic: Hematologic/Lymphatic: Reports as per HPI Allergic/Immunologic: Allergic/Immunologic: Reports as per HPI [facility] Past Medical History Attestation statement: The following information was validated with the patient. Source: old records reviewed and nursing notes reviewed Medical History Alcohol use disorder History of benign brain tumor Generalized seizure Bipolar 1 disorder Obesity (BMI 30-39.9) Tobacco abuse GERD (gastroesophageal reflux disease) Anxiety and depression Seizure disorder Surgical History H/O brain surgery Family History Family History Other No family history of coronary artery disease Substance use disorder Social History Social History Household Members: None Housing: Apartment Do you presently have visiting nurse or other home services: No Alcohol intake: current Patient Tobacco Use Status: Former Tobacco user Tobacco use type: Cigarette Cigarette Packs Per Day: 1 Cigarettes Per Day: 20.0 Years Smoked: 15 Smoked in Last 30 Days: Yes e-Cigarette/Vaping Use: Never Used Second Hand Smoke Exposure: Yes Use of substances other than those prescribed or required for medical reasons: Yes Substance Use Type: Crack/Cocaine Advance Directives: No Advance Directives Information Provided: Yes service: No Current occupational status: unemployed Sexual orientation: Straight/Heterosexual Cognitive needs: No Hearing needs: No Vision needs: No Physical Exam ED Vital Signs: Vital Signs - 24 hr 07/28/25 10:32 Temperature 98.8 F Pulse Rate 80 Respiratory Rate 16 Blood Pressure 109/63 Pulse Oximetry 98 Oxygen Delivery Method Room Air BMI result Body Mass Index 23.6 Const General: cooperative, no acute distress, alert and awake Nutritional Appearance: well nourished Orientation/consciousness: patient oriented x3 HENMT Head: Yes normal to inspection and Yes atraumatic Ears: hearing grossly normal bilaterally and external ears normal General nose exam: Normal external nose present, no nasal discharge noted and no epistaxis Face and sinus: Yes normal facial exam, No abrasion and No laceration Mouth: Normal oral and palatal mucosa present, no drooling and no muffled voice Eyes General: appearance normal, both eyes and all related structures Periorbital: periorbital findings normal Eyelids: Yes eyelids normal Conjunctivae: conjunctivae normal Pupils: Equal, round and reactive pupils present EOM: EOMs intact bilaterally Neck Neck: Yes normal visual inspection and Yes full ROM Resp Effort & Inspection: normal respiratory effort and able to speak in complete sentences Neuro General: patient oriented x3, moves all extremities and CN's II-XI intact bilaterally Cranial nerves: Yes Equal, round and reactive pupils present Cognition (Neuro): normal cognition Extrem General: Yes normal to inspection, Yes full ROM and Yes capillary refill normal Psych Appearance: grossly normal Mental Status: mental status grossly normal Affect: Labile affect present Thought content: Suicidality present Medications Administered Discontinued Medications Generic Name Dose Route Start Last Admin Trade Name Freq PRN Reason Stop Dose Admin Lorazepam 1 mg 07/28/25 12:13 07/28/25 12:24 Lorazepam 1 Mg Tablet PO 07/28/25 12:14 1 mg ONCE ONE Administration Potassium Chloride 40 meq 07/28/25 11:35 07/28/25 12:08 Potassium Chloride Er 20 Meq Tab.Er.Prt PO 07/28/25 11:36 40 meq ONCE ONE Administration Potassium Chloride 40 meq 07/28/25 11:35 07/28/25 12:08 Potassium Chloride Packet 20 Meq Packet PO 07/28/25 11:36 40 meq ONCE ONE Administration Medical Decision Making Medical Decision Making [facility] Narrative: Patient is a 40 year old assigned male at with a history of seizures on keppra + valporic acid, alcohol use, recurrent brain tumor presenting to the emergency department today with suicidal ideation. Patient's physical exam was as noted in the physical exam portion of this note. Patient's blood work showed a sodium of 129 and a potassium of 2.9. Patient's urine showed no acute process. Patient's EKG was unremarkable. I explained my physical exam findings as well as all test results to the patient. I answered all questions asked by the patient. Patient was given PO potassium. Patient's sodium of 129 should be addressed with PO fluids and increased salty food intake. Patient's disposition is pending CARE team evaluation. Patient in observation as of 1040 pending CARE team evaluation. 07/28/2025 1510 CARE team recommended inpatient level of care and patient was accepted here at [facility] on our psychiatric floor. Differential Diagnosis Differential Diagnoses: The differential diagnosis associated with the presentation includes SI Depression Alcohol use Alcohol abuse Hypokalemia Hyponatremia Admission/Observation Consideration of admission/observation: Escalation of care including admission/observation considered Patient admitted to the psychiatric unit. Consult Healthcare Provider Management of the patient was discussed with: Behavioral Health Provider (Spoke to the CARE team as noted in the MDM Rationale portion of this note. ) Lab Data [facility] Lab Attestation statement: I reviewed the patient's lab results. My interpretation of these results are in the MDM Rationale portion of this note. 07/28/25 11:10 07/28/25 11:10 Labs: Lab Results 07/28/25 07/28/25 07/28/25 Range/Units 11:10 11:25 12:55 WBC 3.7 L (4.8-10.8) X10*3/uL RBC 3.50 L D (4.60-5.80) X10*6/uL Hgb 11.0 L D (14.0-18.0) g/dl Hct 29.5 L D (42.0-52.0) % MCV 85.0 (80.0-98.0) fL MCH 31.4 (27.0-33.0) pg MCHC 37.3 H (31.0-36.0) g/dl RDW 40.9 H (11.0-16.0) % Plt Count 48 L D (160-400) X10*3/uL MPV 10.0 (9.4-12.4) fL Immature Gran % (Auto) 0.3 (0.0-0.4) % Neut % (Auto) 59.7 (45-73) % Lymph % (Auto) 30.4 (20-40) % [place] % (Auto) 8.8 (2-11) % Eos % (Auto) 0.3 (0-4) % Baso % (Auto) 0.5 (0-2) % Lymph # (Auto) 1.1 L (1.2-4.9) X10*3/uL [place] # (Auto) 0.3 (0.1-1.2) X10*3/uL Eos # (Auto) 0.0 (0.0-0.4) X10*3/uL Baso # (Auto) 0.0 (0.0-0.2) X10*3/uL Abs Immat Gran (auto) 0.01 (0.00-0.03) X10*3/uL Absolute Neuts (auto) 2.2 (2.0-8.3) x10*3/uL Absolute Nucleated RBC 0.000 (0.0-0.012) X10*3/uL Nucleated RBC % (auto) 0.0 (0.0-0.2) /100WBC Smear Tech's Comments VERIFIED Sodium 129 L (135-145) mmol/L Potassium 2.9 L* D (3.3-5.1) mmol/L Chloride 91 L (96-108) mmol/L Carbon Dioxide 27 (22-29) mmol/L Anion Gap 14 (12-20) BUN 7 L (9-16) mg/dL Creatinine 0.75 (0.5-1.4) mg/dL Estim Creat Clear Calc 132.2 Estimated GFR > 60 Random Glucose 86 (60-115) mg/dL Calcium 8.8 (8.4-10.2) mg/dL Total Bilirubin 0.8 (0.0-1.0) mg/dL AST 26 (5-37) U/L ALT 22 (0-40) U/L Alkaline Phosphatase 48 (39-117) U/L Total Protein 6.0 L (6.5-8.0) g/dL Albumin 3.7 (3.5-5.0) g/dL Urine Color Yellow Urine Appearance Clear Urine pH 6.5 (5.0-9.0) Ur Specific [place] <= 1.005 (1.005-1.025) Urine Protein Negative (Neg-Trace) mg/dL Urine Glucose (UA) Negative (Negative) mg/dL Urine Ketones Negative (Negative) mg/dL Urine Blood Negative (Negative) Urine Nitrite Negative (Negative) Ur Leukocyte Esterase Negative (Negative) Salicylates < 5.0 L (15-30) mg/dL Urine Opiates Screen Not Detected (Not Detect) Ur Buprenorphine Scrn Not Detected (Not Detect) ng/mL Ur Oxycodone Screen Not Detected (Not Detect) ng/mL Urine Methadone Screen Not Detected (Not Detect) ng/mL Urine Fentanyl Screen Not Detected (Not Detect) Acetaminophen < 3 (<30) mcg/mL Ur Barbiturates Screen Not Detected (Not Detect) Valproic Acid 58.5 (50.0-100.0) mcg/mL Ur Phencyclidine Scrn Not Detected (Not Detect) Ur Amphetamines Screen Not Detected (Not Detect) U Benzodiazepines Scrn Not Detected (Not Detect) Urine Cocaine Screen POSITIVE H (Not Detect) U Marijuana (THC) Screen Not Detected (Not Detect) Ethyl Alcohol 118 mg/dL COVID-19 ([facility]) Negative (Negative) COVID-19 Clin Com See Note Independent Interpretation I performed an independent interpretation of an: EKG Interpretation: I independently interpreted this EKG and am in agreement with the below findings: Vent. Rate: 73 BPM Atrial Rate: 73 BPM P-R Int: 160 ms QRS Dur: 120 ms QT Int: 390 ms P-R-T Axes: 51 68 57 degrees QTcB Int: 429 ms Normal sinus rhythm Non-specific intra-ventricular conduction delay When compared with ECG of 15-Oct-2024 11:34, QRS duration has increased Electronically Signed By: Andi Kincaid Dictated By: Andi Kincaid MD Signed By: Electronically signed by Andi Kincaid MD 07/28/25 1157 Independent Historian Clinical information obtained from an independent historian. History obtained from or confirmed by: EMS (EMS provided additional history and confirmed the history provided by the patient. ) External Record Review External record reviewed: Inpatient record Critical Care Time Critical Care Time Critical Care Time: Yes Total Critical Care Time: 34 Attestation: I spent 34 minutes of Critical Care Time with this patient. This does not include time spent on separately reported billable procedures. Discharge Plan Discharge Clinical Impression: Suicidal ideation, Acute hyponatremia, Acute hypokalemia Patient Disposition: Admitted As Inpatient Interventions: Rush-Suicide Risk Severity Scale Last Done: 07/28/25 10:32
[2025-07-28 11:35] LABS: Alanine Aminotransferase 22 U/L (0-40); Albumin Level 3.7 g/dL (3.5-5.0); Alkaline Phosphatase 48 U/L (39-117); Anion Gap 14 (12-20); Aspartate Amino Transferase 26 U/L (5-37); Blood Urea Nitrogen 7 mg/dL (9-16); Calcium 8.8 mg/dL (8.4-10.2); Carbon Dioxide 27 mmol/L (22-29); Chloride 91 mmol/L (96-108); Creatinine Clr Calc Pharmacy 132.2; Estimated Glomerular Filt Rate > 60; Potassium 2.9 mmol/L (3.3-5.1); Sodium 129 mmol/L (135-145); Total Protein 6.0 g/dL (6.5-8.0)
[2025-07-28 11:37] LABS: Appearance Urine Clear; Glucose Urine UA Negative (Negative); PH 6.5 (5.0-9.0); Specific Gravity - Urine <= 1.005 (1.005-1.025)
[2025-07-28 11:39] LABS: Acetaminophen LAB < 3 mcg/mL (<30); Salicylate < 5.0 mg/dL (15-30)
--- NOTE | 2025-07-28 11:39 | PC.NURSE ---
Addendum entered by Yvonne Ibarra RN 07/28/25 11:40: Patient is a 40 yo male who presents with a history of alcohol use disorder with depression and SI with no curent plan. History of a right frontoparietal craniotomy for resection of recurrent tumor on 09/29/24?by Dr. Black. 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 He is currently followed by Dr Osborn, [facility] Oncology, and Radiation Oncology. Patient is currently undergoing right frontal radiation therapy, which he states he is tolerating well though it can cause some very mild headache or fatigue. Upon completion of radiation, patient is to start chemotherapy. He was advised to have a port placed, however patient decided that he would wait until his radiation therapy was completed. Has been receiving treatment for the past year. Appears sad and withdrawn. Original Note: Medical History Alcohol use disorder History of benign brain tumor Generalized seizure Bipolar 1 disorder Obesity (BMI 30-39.9) Tobacco abuse GERD (gastroesophageal reflux disease) Anxiety and depression Seizure disorder
[2025-07-28 11:59] LABS: COVID-19 Test Negative (Negative); IDNOW Serial# 58CA691E
[2025-07-28] MEDS: Potassium Chloride Packet 20 MEQ PACKET 40 MEQ PO (12:08)
[2025-07-28] MEDS: Potassium Chloride ER 20 MEQ TAB.ER.PRT 40 MEQ PO (12:08)
[2025-07-28 12:14] LABS: Imm Gran Abs Auto 0.01 X10*3/uL (0.00-0.03); Imm Gran Pct Auto 0.3 % (0.0-0.4); Lymphocytes Absolute Auto 1.1 X10*3/uL (1.2-4.9); MANUAL DIFF FLAG SCAN; NRBC Abs Auto 0.000 X10*3/uL (0.0-0.012); NRBC Pct Auto 0.0 /100WBC (0.0-0.2); SCAN SMEAR FLAG 1
[2025-07-28 12:53] LABS: Hemoglobin 11.0 g/dl (14.0-18.0); Platelet Count 48 X10*3/uL (160-400)
[2025-07-28 12:54] LABS: Mean Corpuscular HGB Conc 37.3 g/dl (31.0-36.0); Mean Corpuscular Hemoglobin 31.4 pg (27.0-33.0)
[2025-07-28 12:55] LABS: Mean Corpuscular Volume 85.0 fL (80.0-98.0)
[2025-07-28 12:57] LABS: Hematocrit 29.5 % (42.0-52.0)
[2025-07-28 12:58] LABS: Red Blood Count 3.50 X10*6/uL (4.60-5.80)
[2025-07-28 13:00] LABS: White Blood Count 3.7 X10*3/uL (4.8-10.8)
[2025-07-28 14:48] LABS: Cannabinoid Screen Urine Not Detected (Not Detect)
--- NOTE | 2025-07-28 19:01 | PC.NURSE ---
Patients personal ativan inventoried and sent to the pharmacy
--- NOTE | 2025-07-28 19:29 | PC.NURSE ---
Addendum entered by Laura Loyd RN 07/29/25 05:46: pt rested well throughout the night, did not display and symptoms or behaviors of concern. Original Note: assumed care for pt at this time. pt awake and alert in bed, calm and cooperative. pt requesting nighttime medications. med rec is done per previous RN. MD aware and pending orders at this time. pts needs met, plan of care ongoing.
[2025-07-29 00:29] VITALS: BP 110/82; PULSE 89; RESP 18; O2SAT 97
--- NOTE | 2025-07-29 07:29 | PC.NURSE ---
Pt resting quietly. skin PWD. NAD.
[2025-07-29 08:05] VITALS: BP 118/76; PULSE 76; RESP 16; TEMP 37.3; O2SAT 98
--- NOTE | 2025-07-29 09:21 | PC.NURSE ---
Pt is awake, calm. taking po routine meds. Awaits bed placement and is aware of plan of care. Denies SI.
--- NOTE | 2025-07-29 09:22 | PC.NURSE ---
no obvious signs of internal stimuli.
--- NOTE | 2025-07-29 10:45 | PHA.MEDREC ---
Addendum entered by Ruba Suarez [facility] 07/29/25 11:51: [facility] REVIEWED Addendum entered by Vanna Snow 07/29/25 11:31: Spoke again with pt (pt a little sleepy and got confused about his meds) about his Gleostine 10mg and 100mg tabs and Matulane 50mg caps and pt confirmed he takes both the Gloestine 10 and 100mg tabs together when he gets his infusions every 42 days (pt unsure the last time he had his doses at this time) and his Matulane is taken daily. Original Note: Pharmacy Consult ? Medication Reconciliation Pharmacy reviewed med rec done by nursing. Spoke with pt and he confirmed his medications. Pt confirmed he has not started taken the Citalopram yet, he takes Omeprazole 20mg tabs once daily and not Pantoprazole; that was confirmed by previous nurse and pt confirmed the Senna-Docusate 1 tab daily as needed for constipation.
[2025-07-29 12:09] LABS: Anion Gap 12 (12-20); Blood Urea Nitrogen 12 mg/dL (9-16); Calcium 9.8 mg/dL (8.4-10.2); Carbon Dioxide 26 mmol/L (22-29); Chloride 101 mmol/L (96-108); Creatinine Clr Calc Pharmacy 105.5; Estimated Glomerular Filt Rate > 60; Potassium 4.7 mmol/L (3.3-5.1); Sodium 134 mmol/L (135-145)
[2025-07-29 14:05] VITALS: BP 126/75; PULSE 88; RESP 14; TEMP 36.2; O2SAT 97
--- NOTE | 2025-07-29 15:12 | HO.PSYADMNOT ---
HPI Date of Service: 07/29/25 Chief Complaint: crisis Sources of Information: patient interviewed, chart reviewed and crisis/core team assessment reviewed HPI Subjective Notes: Burns Warning and Conditional Voluntary Narrative: Patient is a 40-year-old male with history of bipolar disorder, PTSD, cocaine use disorder and alcohol use disorder who presented to ER via ambulance due to suicidal ideation secondary to having a brain tumor. Per crisis report, patient reports his brain tumor has reoccurred. He reports using alcohol and cocaine to deal with stressors. History of one prior inpatient psychiatric hospitalization. Patient reports feeling overwhelmed with multiple life stressors which is causing him to have increased depression. Patient is currently receiving chemotherapy and radiation; relapsed on alcohol and substances as a result to his increased depression. Patient reports he does not have outpatient psychiatric providers at this time. Patient reports he called 911 from home after he had been using alcohol heavily. Patient reports he has been in recovery for the last 2 years and recently relapsed on alcohol and cocaine over the past 8 days due to his depression. He reports suicidal ideation without plan. Denies HI/VH. He reports AH stating the voices make me jump . Patient does not appear to be responding to internal stimuli. History of outpatient psychiatric providers through [facility]. History of detox admission. BAL 118 in ER. He reports consuming a handle of vodka, and 5 beers daily along with snorting cocaine. Denies history of SA. During admission assessment, patient presents alert and oriented x3. Calm and cooperative. Guarded. Patient reports feeling depressed ; patient stated, I came here to get away from my thoughts. I'm feeling depressed and exhausted from chemo. I got treatment 2 weeks ago at [facility]. I think I've always been depressed . Patient reports being medication compliant. He reports history of seizures states his last seizure was a few months ago. Patient denies SI/HI/VH/AH. Patient stated, I feel like I can get through it like I have before . He reports sleep and appetite are good. Patient reports he is interested in referrals to outpatient psychiatric providers. Past Psychiatric History: hx of 1 prior inpatient psychiatric hospitalization. hx SA/SIB: denies denies having outpatient psychiatric providers. hx of being connected with [facility]. Medical Evaluation Reviewed: Yes [facility] Medical History (Updated 07/29/25 @ 15:26 by Grecia Lazo NP) Alcohol use disorder History of benign brain tumor Generalized seizure Bipolar 1 disorder Obesity (BMI 30-39.9) Tobacco abuse GERD (gastroesophageal reflux disease) Anxiety and depression Seizure disorder Surgical History H/O brain surgery Family History: parents - alcohol mother - opioids Social History: Lives alone. Single. GED. 2 kids (15, 17 y/o) live with their mother. disability. Substance History: Patient reports daily alcohol and cocaine use for the last 9 days. Trauma History: yes Diagnostics Vital Signs (24Hr): Vital Signs - 24 hr 07/29/25 00:29 07/29/25 08:05 Temperature 99.2 F Pulse Rate 89 76 Respiratory Rate 18 16 Blood Pressure 110/82 118/76 Pulse Oximetry 97 98 Oxygen Delivery Method Room Air Room Air BMI result Body Mass Index 23.6 Labs 07/28/25 11:10 07/29/25 11:33 Labs: Laboratory Results - last 48 hr 07/28/25 07/28/25 07/28/25 11:10 11:25 12:55 WBC 3.7 L RBC 3.50 L D Hgb 11.0 L D Hct 29.5 L D MCV 85.0 MCH 31.4 MCHC 37.3 H RDW 40.9 H Plt Count 48 L D MPV 10.0 Immature Gran % (Auto) 0.3 Neut % (Auto) 59.7 Lymph % (Auto) 30.4 [place] % (Auto) 8.8 Eos % (Auto) 0.3 Baso % (Auto) 0.5 Lymph # (Auto) 1.1 L [place] # (Auto) 0.3 Eos # (Auto) 0.0 Baso # (Auto) 0.0 Abs Immat Gran (auto) 0.01 Absolute Neuts (auto) 2.2 Absolute Nucleated RBC 0.000 Nucleated RBC % (auto) 0.0 Smear Tech's Comments VERIFIED Sodium 129 L Potassium 2.9 L* D Chloride 91 L Carbon Dioxide 27 Anion Gap 14 BUN 7 L Creatinine 0.75 Estim Creat Clear Calc 132.2 Estimated GFR > 60 Random Glucose 86 Calcium 8.8 Total Bilirubin 0.8 AST 26 ALT 22 Alkaline Phosphatase 48 Total Protein 6.0 L Albumin 3.7 Urine Color Yellow Urine Appearance Clear Urine pH 6.5 Ur Specific [place] <= 1.005 Urine Protein Negative Urine Glucose (UA) Negative Urine Ketones Negative Urine Blood Negative Urine Nitrite Negative Ur Leukocyte Esterase Negative Salicylates < 5.0 L Urine Opiates Screen Not Detected Ur Buprenorphine Scrn Not Detected Ur Oxycodone Screen Not Detected Urine Methadone Screen Not Detected Urine Fentanyl Screen Not Detected Acetaminophen < 3 Ur Barbiturates Screen Not Detected Valproic Acid 58.5 Ur Phencyclidine Scrn Not Detected Ur Amphetamines Screen Not Detected U Benzodiazepines Scrn Not Detected Urine Cocaine Screen POSITIVE H U Marijuana (THC) Screen Not Detected Ethyl Alcohol 118 COVID-19 ([facility]) Negative COVID-19 Clin Com See Note 07/29/25 11:33 WBC RBC Hgb Hct MCV MCH MCHC RDW Plt Count MPV Immature Gran % (Auto) Neut % (Auto) Lymph % (Auto) [place] % (Auto) Eos % (Auto) Baso % (Auto) Lymph # (Auto) [place] # (Auto) Eos # (Auto) Baso # (Auto) Abs Immat Gran (auto) Absolute Neuts (auto) Absolute Nucleated RBC Nucleated RBC % (auto) Smear Tech's Comments Sodium 134 L Potassium 4.7 D Chloride 101 Carbon Dioxide 26 Anion Gap 12 BUN 12 Creatinine 0.94 Estim Creat Clear Calc 105.5 Estimated GFR > 60 Random Glucose 100 Calcium 9.8 D Total Bilirubin AST ALT Alkaline Phosphatase Total Protein Albumin Urine Color Urine Appearance Urine pH Ur Specific [place] Urine Protein Urine Glucose (UA) Urine Ketones Urine Blood Urine Nitrite Ur Leukocyte Esterase Salicylates Urine Opiates Screen Ur Buprenorphine Scrn Ur Oxycodone Screen Urine Methadone Screen Urine Fentanyl Screen Acetaminophen Ur Barbiturates Screen Valproic Acid Ur Phencyclidine Scrn Ur Amphetamines Screen U Benzodiazepines Scrn Urine Cocaine Screen U Marijuana (THC) Screen Ethyl Alcohol COVID-19 ([facility]) COVID-19 Clin Com Meds/Allergies Meds Home Medications ?Medication ?Instructions ?Recorded ?Confirmed ?Type sennosides 8.6 mg-docusate sodium 1 tab PO DAILY PRN constipation 07/28/25 07/29/25 History 50 mg tablet (Senexon-S) citalopram 20 mg tablet 20 mg PO DAILY 07/29/25 07/29/25 History lomustine 10 mg capsule (Gleostine) 30 mg PO Q42D 07/29/25 07/29/25 History lomustine 100 mg capsule 200 mg PO Q42D 07/29/25 07/29/25 History (Gleostine) omeprazole magnesium 20 mg 20 mg PO DAILY@0630 07/29/25 07/29/25 History tablet,delayed release ondansetron HCl 8 mg tablet 8 mg PO TID PRN Nausea And Vomiting 07/29/25 07/29/25 History procarbazine 50 mg capsule 50 mg PO DAILY 07/29/25 07/29/25 History (Matulane) Allergies Allergies Allergy/AdvReac Type Severity Reaction Status Date / Time No Known Allergies (No Known Allergy Verified 07/28/25 10:31 Allergies*) Mental Status Exam Mental Status Exam Patient Appearance: Appropriate Patient Orientation: Person, Place, Time and Situation Level of Consciousness: Awake and Alert Patient Behavior: Appropriate, Guarded, Cooperative and Good Eye Contact Mood Description: Depressed Affect Description: Depressed Ability to Follow Directions: Good Speech Pattern: Clear Memory Description: Intact Hallucinations: None Delusions: Not Present Thought Process: Intact Thought Content: positive for Intact Assessment & Plan Assessment & Plan (1) Bipolar 1 disorder: Status: Acute Code(s): F31.9 - Bipolar disorder, unspecified (2) PTSD (post-traumatic stress disorder): Status: Acute Code(s): F43.10 - Post-traumatic stress disorder, unspecified (3) Alcohol use disorder: Status: Acute Code(s): F10.90 - Alcohol use, unspecified, uncomplicated (4) Cocaine use disorder: Status: Acute Code(s): F14.10 - Cocaine abuse, uncomplicated Plan Patient is a 40-year-old male with history of bipolar disorder, PTSD, cocaine use disorder and alcohol use disorder who presented to ER via ambulance due to suicidal ideation secondary to having a brain tumor. Plan: CV 15 minute safety checks Continue home medications obtain collateral referral to outpatient psychiatric providers encourage groups discharge planning Patient educated on: diagnosis and medication risk/benefits Reason for continued inpatient stay Substantial Risk for: harm to self and med/psych decompensation Statement Statement: I have reviewed the history and physical and performed a pertinent examination on my patient. No changes have occurred unless specified. If the History and Physical was not performed prior to admission, the Hospitalist's service will be consulted for completing the admission physical. Time Spent With Patient Time: Total time managing care of this patient today _60___ minutes.
[2025-07-29 17:30] VITALS: BMI 24.6
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
[2025-07-29 20:00] VITALS: BP 123/67; PULSE 89; RESP 18; TEMP 37.4; O2SAT 97
--- NOTE | 2025-07-29 21:17 | PC.NURSE ---
07/29/25 Pt has port in R chest, spoke to Lamar Pacheco DNP, No flush to be used at this time, pt does not do anything when not at treatment. 07/29/25 PRN ativan was given increased anxiety, per pt and Lamar pacheco DNP utilizes for high anxiety which can lead to seizure activity. Per pt he has been taking 0.5 mg TID for over a year
[2025-07-30 07:39] LABS: Alanine Aminotransferase 22 U/L (0-40); Albumin Level 4.0 g/dL (3.5-5.0); Alkaline Phosphatase 52 U/L (39-117); Anion Gap 11 (12-20); Aspartate Amino Transferase 18 U/L (5-37); Blood Urea Nitrogen 12 mg/dL (9-16); Calcium 9.7 mg/dL (8.4-10.2); Carbon Dioxide 28 mmol/L (22-29); Chloride 102 mmol/L (96-108); Cholesterol 145 mg/dL (<200); Creatinine Clr Calc Pharmacy 94.4; Estimated Glomerular Filt Rate > 60; HDL Cholesterol 59 mg/dL (>40); Potassium 4.3 mmol/L (3.3-5.1); Sodium 137 mmol/L (135-145); Total Protein 6.6 g/dL (6.5-8.0); Triglycerides 65 mg/dL (<150)
--- NOTE | 2025-07-30 07:48 | HO.PSYCHPN ---
Subjective Subjective Date of Service: 07/30/25 Reason For Visit: crisis Subjective Notes: Conditional Voluntary Interim History: met with patient. Discussed with Nursing. Noted medical history. Patient reports being eager for discharge. Reports wanting to be back in the community and continue his chemotherapy and radiation. Clarified Ativan dosing is 0.5 mg and he usually takes this 3 times a day but can take it sometimes 4 times per day or anxiety. Denies SI. Denies psychosis. Sleep okay. Educated around 3 day notice process and Burns warning Should he pursue same Medication Compliance: Yes Side effects from medications: No Attending Groups: Intermittent Review of Systems Acute medical concerns: No Review of Systems Review of Systems nothing acute or new Mental Status Exam Mental Status Exam Patient Appearance: Appropriate Patient Orientation: Person, Place, Time and Situation Level of Consciousness: Awake and Alert Patient Behavior: Appropriate, Guarded, Cooperative and Good Eye Contact Mood Description: Withdrawn and Depressed Affect Description: Depressed Ability to Follow Directions: Good Speech Pattern: Clear Memory Description: Intact Hallucinations: None Delusions: Not Present Thought Process: Intact Thought Content: positive for Intact Judgement: Fair Diagnostics Vital Signs (24Hr): Vital Signs - 24 hr 07/29/25 08:05 07/29/25 14:05 07/29/25 20:00 Temperature 99.2 F 97.2 F 99.3 F Pulse Rate 76 88 89 Respiratory Rate 16 14 18 Blood Pressure 118/76 126/75 123/67 Pulse Oximetry 98 97 97 Oxygen Delivery Method Room Air Room Air Room Air BMI result Body Mass Index 24.6 Labs 07/28/25 11:10 07/30/25 07:11 Labs: Laboratory Results - last 48 hr 07/28/25 07/28/25 07/28/25 11:10 11:25 12:55 WBC 3.7 L RBC 3.50 L D Hgb 11.0 L D Hct 29.5 L D MCV 85.0 MCH 31.4 MCHC 37.3 H RDW 40.9 H Plt Count 48 L D MPV 10.0 Immature Gran % (Auto) 0.3 Neut % (Auto) 59.7 Lymph % (Auto) 30.4 [place] % (Auto) 8.8 Eos % (Auto) 0.3 Baso % (Auto) 0.5 Lymph # (Auto) 1.1 L [place] # (Auto) 0.3 Eos # (Auto) 0.0 Baso # (Auto) 0.0 Abs Immat Gran (auto) 0.01 Absolute Neuts (auto) 2.2 Absolute Nucleated RBC 0.000 Nucleated RBC % (auto) 0.0 Smear Tech's Comments VERIFIED Sodium 129 L Potassium 2.9 L* D Chloride 91 L Carbon Dioxide 27 Anion Gap 14 BUN 7 L Creatinine 0.75 Estim Creat Clear Calc 132.2 Estimated GFR > 60 Random Glucose 86 Calcium 8.8 Total Bilirubin 0.8 AST 26 ALT 22 Alkaline Phosphatase 48 Total Protein 6.0 L Albumin 3.7 Triglycerides Cholesterol LDL Cholesterol, Calc HDL Cholesterol Urine Color Yellow Urine Appearance Clear Urine pH 6.5 Ur Specific [place] <= 1.005 Urine Protein Negative Urine Glucose (UA) Negative Urine Ketones Negative Urine Blood Negative Urine Nitrite Negative Ur Leukocyte Esterase Negative Salicylates < 5.0 L Urine Opiates Screen Not Detected Ur Buprenorphine Scrn Not Detected Ur Oxycodone Screen Not Detected Urine Methadone Screen Not Detected Urine Fentanyl Screen Not Detected Acetaminophen < 3 Ur Barbiturates Screen Not Detected Valproic Acid 58.5 Ur Phencyclidine Scrn Not Detected Ur Amphetamines Screen Not Detected U Benzodiazepines Scrn Not Detected Urine Cocaine Screen POSITIVE H U Marijuana (THC) Screen Not Detected Ethyl Alcohol 118 COVID-19 ([facility]) Negative COVID-19 Clin Com See Note 07/29/25 07/30/25 11:33 07:11 WBC RBC Hgb Hct MCV MCH MCHC RDW Plt Count MPV Immature Gran % (Auto) Neut % (Auto) Lymph % (Auto) [place] % (Auto) Eos % (Auto) Baso % (Auto) Lymph # (Auto) [place] # (Auto) Eos # (Auto) Baso # (Auto) Abs Immat Gran (auto) Absolute Neuts (auto) Absolute Nucleated RBC Nucleated RBC % (auto) Smear Tech's Comments Sodium 134 L 137 Potassium 4.7 D 4.3 Chloride 101 102 Carbon Dioxide 26 28 Anion Gap 12 11 L BUN 12 12 Creatinine 0.94 1.05 Estim Creat Clear Calc 105.5 94.4 Estimated GFR > 60 > 60 Random Glucose 100 98 Calcium 9.8 D 9.7 Total Bilirubin 0.7 AST 18 ALT 22 Alkaline Phosphatase 52 Total Protein 6.6 Albumin 4.0 Triglycerides 65 Cholesterol 145 LDL Cholesterol, Calc 73 HDL Cholesterol 59 Urine Color Urine Appearance Urine pH Ur Specific [place] Urine Protein Urine Glucose (UA) Urine Ketones Urine Blood Urine Nitrite Ur Leukocyte Esterase Salicylates Urine Opiates Screen Ur Buprenorphine Scrn Ur Oxycodone Screen Urine Methadone Screen Urine Fentanyl Screen Acetaminophen Ur Barbiturates Screen Valproic Acid Ur Phencyclidine Scrn Ur Amphetamines Screen U Benzodiazepines Scrn Urine Cocaine Screen U Marijuana (THC) Screen Ethyl Alcohol COVID-19 ([facility]) COVID-19 Clin Com Medications Medications Current Medications Acetaminophen (Acetaminophen 325 Mg Tablet) 650 mg PO Q6H PRN PRN Reason: Headache/Pain, Scale 1-10 Al Hydroxide/Mg Hydroxide (Magnesium Hydrox/Alum Hydrox 30 Ml Oral.Susp) 30 ml PO Q6H PRN PRN Reason: Heartburn/Nausea Dexamethasone (Dexamethasone 4 Mg Tablet) 4 mg PO BID [facility] Last Admin: 07/29/25 20:28 Dose: 4 mg Divalproex Sodium (Divalproex Sodium 250 Mg Tablet.) 750 mg PO BID [facility] Last Admin: 07/29/25 20:31 Dose: 750 mg Escitalopram Oxalate (Escitalopram Oxalate 10 Mg Tablet) 10 mg PO DAILY [facility] Last Admin: 07/29/25 16:04 Dose: 10 mg Hydroxyzine HCl (Hydroxyzine Hcl 25 Mg Tablet) 25 mg PO Q6H PRN PRN Reason: mild anxiety Levetiracetam (Levetiracetam 500 Mg Tablet) 1,500 mg PO BID [facility] Last Admin: 07/29/25 20:30 Dose: 1,500 mg Lorazepam (Lorazepam 1 Mg Tablet) 1 mg PO TID PRN PRN Reason: seizure activity Last Admin: 07/29/25 20:27 Dose: 1 mg Magnesium Hydroxide (Milk Of Magnesia 30 Ml Oral.Susp) 30 ml PO DAILY PRN PRN Reason: Constipation Nicotine (Nicotine 21 Mg Patch.Td24) 21 mg TRANSDERMA DAILY [facility] Nicotine Polacrilex (Nicotine Polacrilex 2 Mg Gum) 4 mg BUCCAL Q2H PRN PRN Reason: Nicotine Cravings Omeprazole (Omeprazole 20 Mg Capsule.) 20 mg PO DAILY@0630 [facility] Last Admin: 07/30/25 07:00 Dose: 20 mg Ondansetron HCl (Ondansetron Odt 8 Mg Tab.Rapdis) 8 mg TRANSLINGU TID PRN PRN Reason: Nausea and Vomiting Senna/Docusate Sodium (Sennosides/Docusate Sodium Tablet) 1 tab PO DAILY PRN PRN Reason: Constipation Trazodone HCl (Trazodone Hcl 50 Mg Tablet) 50 mg PO BEDTIME MRX1 PRN PRN Reason: Insomnia Allergies Allergies Allergy/AdvReac Type Severity Reaction Status Date / Time No Known Allergies (No Known Allergy Verified 07/28/25 10:31 Allergies*) Assessment & Plan Assessment & Plan (1) Bipolar 1 disorder: Status: Acute Code(s): F31.9 - Bipolar disorder, unspecified (2) PTSD (post-traumatic stress disorder): Status: Acute Code(s): F43.10 - Post-traumatic stress disorder, unspecified (3) Alcohol use disorder: Status: Acute Code(s): F10.90 - Alcohol use, unspecified, uncomplicated (4) Cocaine use disorder: Status: Acute Code(s): F14.10 - Cocaine abuse, uncomplicated Plan Patient is a 40-year-old male with history of bipolar disorder, PTSD, cocaine use disorder and alcohol use disorder who presented to ER via ambulance due to suicidal ideation secondary to having a brain tumor. Plan: CV 15 minute safety checks Continue home medications obtain collateral referral to outpatient psychiatric providers encourage groups discharge planning 07/30/2025: No changes to current plan and did adjust Ativan dosing to be consistent with preadmission regimen. Educated on three-day notice process should he pursue same Reason for continued inpatient stay Substantial Risk for: harm to self Time Spent With Patient Time: Total time managing care of this patient today ____ minutes.
[2025-07-30 07:55] LABS: Hemoglobin A1C 96.1705 umol/L; Total Hemoglobin (HGBA1C) 3186.6887 umol/L
[2025-07-30 08:20] VITALS: BP 125/80; PULSE 107; RESP 20; TEMP 36.4; O2SAT 98
[2025-07-30] MEDS: Nicotine 21 MG PATCH.TD24 TRANSDERMA (08:58)
--- NOTE | 2025-07-30 14:01 | PC.NURSE ---
Pt signed a 3 day on 07/30, up on Friday 08/03
--- NOTE | 2025-07-30 16:12 | MHC.RECOVRN ---
Met with pt in - after consultation requested from Addiction Medicine for ETOH and Cocaine Use. Chart review completed. Information for this assessment obtained from chart and pt. Pt had presented to the ED on 07/28 with SI. He has a H/O brain tumor with crani. and the tumor has reoccurred. Pt started using ETOH and VISHNU approx 8 days ago after sustaining 2 years of sobriety, due to life stressors and current medical status. Pt was admitted to the mental health floor for stabilization. Pt has h/o seizures and is currently receiving Kepra. No pheno taper ordered. Pt is not reporting W/D sx and none observed by this promotion writer during our visit. Upon assessment pt is laying in bed awake and alert. He is soft spoken but is able to express his needs, concerns and respond to my questions appropriately. Pt reports He had maintained sobriety for 2 years by attending meetings and therapy but fell out of his routine due to increasing medical appointments for chemo and radiation for recurrent brain tumor. Pt recently returned to use and was drinking 1 handle and 5 beers daily and using cocaine; for the last 8 days. ? Pt educated on community supports available. Patient declines [facility]ANSEL initiation? appt for outpatient [facility] treatment due to numerous medical appointments. He also took info on the [facility] but declined referral due to the same reason. He did accept referral and one was placed by t/w. Pt declined any further concerns/needs at this time. ACS available PRN during pt's stay
[2025-07-30 20:00] VITALS: BP 107/66; PULSE 75; RESP 16; TEMP 37.1; O2SAT 99
[2025-07-31 02:38] LABS: Levetiracetam Keppra 34.4 mcg/mL (6.0-46.0)
[2025-07-31 07:59] VITALS: BP 108/58; PULSE 64; RESP 14; TEMP 36.8; O2SAT 98
[2025-07-31] MEDS: Nicotine 21 MG PATCH.TD24 TRANSDERMA (08:31)
--- NOTE | 2025-07-31 11:39 | HO.PSYCHPN ---
Subjective Subjective Date of Service: 07/31/25 Reason For Visit: crisis Interim History: met with patient. Discussed with Nursing. Noted medical history. Reports that mood is improving. Not suicidal. Anxiety under better control. Sleep okay. Reports he does not take Decadron any more after his surgery and has not taken this in over 1 month and therefore will discontinue it. Is looking forward to discharge planning and returning to the community and continuing his outpatient treatment for cancer. Medication Compliance: Yes Side effects from medications: No Attending Groups: Intermittent Review of Systems Acute medical concerns: No Review of Systems Review of Systems nothing acute or new Mental Status Exam Mental Status Exam Patient Appearance: Appropriate Patient Orientation: Person, Place, Time and Situation Level of Consciousness: Awake and Alert Patient Behavior: Appropriate, Cooperative and Good Eye Contact Mood Description: Withdrawn Affect Description: Appropriate Ability to Follow Directions: Good Speech Pattern: Clear Memory Description: Intact Diagnostics Vital Signs (24Hr): Vital Signs - 24 hr 07/30/25 20:00 07/31/25 07:59 Temperature 98.7 F 98.2 F Pulse Rate 75 64 Respiratory Rate 16 14 Blood Pressure 107/66 108/58 L Pulse Oximetry 99 98 Oxygen Delivery Method Room Air Room Air BMI result Body Mass Index 24.6 Labs 07/28/25 11:10 07/30/25 07:11 Labs: Laboratory Results - last 48 hr 07/28/25 07/29/25 07/30/25 12:55 11:33 07:10 Sodium 134 L Potassium 4.7 D Chloride 101 Carbon Dioxide 26 Anion Gap 12 BUN 12 Creatinine 0.94 Estim Creat Clear Calc 105.5 Estimated GFR > 60 Random Glucose 100 Estimat Average Glucose 94 Hemoglobin A1c % 4.9 Calcium 9.8 D Total Bilirubin AST ALT Alkaline Phosphatase Total Protein Albumin Triglycerides Cholesterol LDL Cholesterol, Calc HDL Cholesterol Levetiracetam 34.4 07/30/25 07:11 Sodium 137 Potassium 4.3 Chloride 102 Carbon Dioxide 28 Anion Gap 11 L BUN 12 Creatinine 1.05 Estim Creat Clear Calc 94.4 Estimated GFR > 60 Random Glucose 98 Estimat Average Glucose Hemoglobin A1c % Calcium 9.7 Total Bilirubin 0.7 AST 18 ALT 22 Alkaline Phosphatase 52 Total Protein 6.6 Albumin 4.0 Triglycerides 65 Cholesterol 145 LDL Cholesterol, Calc 73 HDL Cholesterol 59 Levetiracetam Medications Medications Current Medications Acetaminophen (Acetaminophen 325 Mg Tablet) 650 mg PO Q6H PRN PRN Reason: Headache/Pain, Scale 1-10 Last Admin: 07/30/25 20:10 Dose: 650 mg Al Hydroxide/Mg Hydroxide (Magnesium Hydrox/Alum Hydrox 30 Ml Oral.Susp) 30 ml PO Q6H PRN PRN Reason: Heartburn/Nausea Dexamethasone (Dexamethasone 4 Mg Tablet) 4 mg PO BID [facility] Last Admin: 07/31/25 08:33 Dose: Not Given Divalproex Sodium (Divalproex Sodium 250 Mg Tablet.) 750 mg PO BID [facility] Last Admin: 07/31/25 08:33 Dose: 750 mg Escitalopram Oxalate (Escitalopram Oxalate 10 Mg Tablet) 10 mg PO DAILY [facility] Last Admin: 07/31/25 08:33 Dose: 10 mg Hydroxyzine HCl (Hydroxyzine Hcl 25 Mg Tablet) 25 mg PO Q6H PRN PRN Reason: mild anxiety Levetiracetam (Levetiracetam 500 Mg Tablet) 1,500 mg PO BID [facility] Last Admin: 07/31/25 08:33 Dose: 1,500 mg Lorazepam (Lorazepam 0.5 Mg Tablet) 0.5 mg PO Q4H PRN PRN Reason: Anxiety Last Admin: 07/30/25 20:10 Dose: 0.5 mg Magnesium Hydroxide (Milk Of Magnesia 30 Ml Oral.Susp) 30 ml PO DAILY PRN PRN Reason: Constipation Nicotine (Nicotine 21 Mg Patch.Td24) 21 mg TRANSDERMA DAILY [facility] Last Admin: 07/31/25 08:31 Dose: 21 mg Nicotine Polacrilex (Nicotine Polacrilex 2 Mg Gum) 4 mg BUCCAL Q2H PRN PRN Reason: Nicotine Cravings Omeprazole (Omeprazole 20 Mg Capsule.) 20 mg PO DAILY@0630 [facility] Last Admin: 07/31/25 06:33 Dose: 20 mg Ondansetron HCl (Ondansetron Odt 8 Mg Tab.Rapdis) 8 mg TRANSLINGU TID PRN PRN Reason: Nausea and Vomiting Senna/Docusate Sodium (Sennosides/Docusate Sodium Tablet) 1 tab PO DAILY PRN PRN Reason: Constipation Trazodone HCl (Trazodone Hcl 50 Mg Tablet) 50 mg PO BEDTIME MRX1 PRN PRN Reason: Insomnia Allergies Allergies Allergy/AdvReac Type Severity Reaction Status Date / Time No Known Allergies (No Known Allergy Verified 07/28/25 10:31 Allergies*) Assessment & Plan Assessment & Plan (1) Bipolar 1 disorder: Status: Acute Code(s): F31.9 - Bipolar disorder, unspecified (2) PTSD (post-traumatic stress disorder): Status: Acute Code(s): F43.10 - Post-traumatic stress disorder, unspecified (3) Alcohol use disorder: Status: Acute Code(s): F10.90 - Alcohol use, unspecified, uncomplicated (4) Cocaine use disorder: Status: Acute Code(s): F14.10 - Cocaine abuse, uncomplicated Plan Patient is a 40-year-old male with history of bipolar disorder, PTSD, cocaine use disorder and alcohol use disorder who presented to ER via ambulance due to suicidal ideation secondary to having a brain tumor. Plan: CV 15 minute safety checks Continue home medications obtain collateral referral to outpatient psychiatric providers encourage groups discharge planning 07/30/2025: No changes to current plan and did adjust Ativan dosing to be consistent with preadmission regimen. Educated on three-day notice process should he pursue same 07/31/2025: No changes. will formally discontinue Decadron as has not taken that in over a month after his surgery. Hopeful for discharge planning discussions with primary team Reason for continued inpatient stay Substantial Risk for: rapid decompensation Time Spent With Patient Time: Total time managing care of this patient today ____ minutes.
[2025-07-31 20:02] VITALS: BP 115/60; PULSE 61; RESP 16; TEMP 36.9; O2SAT 96
[2025-08-01 07:50] VITALS: BP 113/60; PULSE 55; RESP 18; TEMP 37.4; O2SAT 99
[2025-08-01] MEDS: Nicotine 21 MG PATCH.TD24 TRANSDERMA (08:21)
--- NOTE | 2025-08-01 15:43 | MHC.CLN ---
CONSULT NUTRITION CONSULT-ROUTINE. PATIENT WITH BRAIN TUMOR. VISITED IN ROOM. STATED THAT IS EATING WELL. TAKES ENSURE SUPPLEMENT AT HOME. WOULD LIKE 2 TIMES/DAY. ORDERED ENSURE BID. PROVIDES 700 KCALS, 40 G PROTEIN. CONTINUE REGULAR DIET PLUS ENSURE BID.
--- NOTE | 2025-08-01 15:47 | P.PNPSI_ITS ---
Subjective Subjective Date of Service: 08/01/25 Reason For Visit: crisis Subjective Notes: Conditional Voluntary Healthcare Proxy: No Guardianship: No Medical Problems Affecting Mental Status: No Interim History: Medical record and nursing notes reviewed; case discussed during rounds with team/nursing staff, and met with patient for supportive therapy/psychoeducation, as well as medication management. Patient slept okay, okay appetite, reports that they sent him a lot of food. He feels tired, resting in bed, denies depression, but reports anxiety. He does not want to go to groups. Mostly isolated himself in room but calm and pleasant upon approach. Denies safety concerns hallucinations. We will discuss with patient regarding Keppra and Depakote level which he take it for mood stabilizer and for seizure. Medication Compliance: Yes Side effects from medications: No Attending Groups: No Review of Systems Acute medical concerns: No Medical Review of Systems: unchanged Review of Systems Review of Systems nothing acute or new Yes all other systems are reviewed and are negative Mental Status Exam Mental Status Exam Narrative: Patient is alert and oriented; behavior is cooperative, friendly with mild to moderate anxiety; patient is not in distress; dressed in hospital attire with kempt hair and adequate hygiene; mood is described as anxious and tired and affect congruent; eye contact appropriate; Speech is normal rate, volume and prosody and not pressured; no psychomotor agitation/retardation present; thought process is organized and goal directed; Thought content is WNL, pertinent to relevant topics and without any delusional content, paranoid ideation or grandiosity; denies any SI/SIB/HI. Denies AH and there is no evidence of perceptual disturbance. Patient's insight and judgment fair. Diagnostics Vital Signs (24Hr): Vital Signs - 24 hr 07/31/25 20:02 08/01/25 07:50 Temperature 98.4 F 99.3 F Pulse Rate 61 55 Respiratory Rate 16 18 Blood Pressure 115/60 113/60 Pulse Oximetry 96 99 Oxygen Delivery Method Room Air Room Air BMI result Body Mass Index 24.6 Labs 07/28/25 11:10 07/30/25 07:11 Labs: Laboratory Results - last 48 hr 07/28/25 12:55 Levetiracetam 34.4 Medications Medications Current Medications Acetaminophen (Acetaminophen 325 Mg Tablet) 650 mg PO Q6H PRN PRN Reason: Headache/Pain, Scale 1-10 Last Admin: 07/31/25 12:59 Dose: 650 mg Al Hydroxide/Mg Hydroxide (Magnesium Hydrox/Alum Hydrox 30 Ml Oral.Susp) 30 ml PO Q6H PRN PRN Reason: Heartburn/Nausea Divalproex Sodium (Divalproex Sodium 250 Mg Tablet.) 750 mg PO BID [facility] Last Admin: 08/01/25 09:06 Dose: 750 mg Escitalopram Oxalate (Escitalopram Oxalate 10 Mg Tablet) 10 mg PO DAILY [facility] Last Admin: 08/01/25 08:20 Dose: 10 mg Hydroxyzine HCl (Hydroxyzine Hcl 25 Mg Tablet) 25 mg PO Q6H PRN PRN Reason: mild anxiety Last Admin: 07/31/25 21:11 Dose: 25 mg Levetiracetam (Levetiracetam 500 Mg Tablet) 1,500 mg PO BID [facility] Last Admin: 08/01/25 08:20 Dose: 1,500 mg Lorazepam (Lorazepam 0.5 Mg Tablet) 0.5 mg PO Q4H PRN PRN Reason: Anxiety Last Admin: 08/01/25 08:25 Dose: 0.5 mg Magnesium Hydroxide (Milk Of Magnesia 30 Ml Oral.Susp) 30 ml PO DAILY PRN PRN Reason: Constipation Nicotine (Nicotine 21 Mg Patch.Td24) 21 mg TRANSDERMA DAILY [facility] Last Admin: 08/01/25 08:21 Dose: 21 mg Nicotine Polacrilex (Nicotine Polacrilex 2 Mg Gum) 4 mg BUCCAL Q2H PRN PRN Reason: Nicotine Cravings Omeprazole (Omeprazole 20 Mg Capsule.) 20 mg PO DAILY@0630 [facility] Last Admin: 08/01/25 06:54 Dose: 20 mg Ondansetron HCl (Ondansetron Odt 8 Mg Tab.Rapdis) 8 mg TRANSLINGU TID PRN PRN Reason: Nausea and Vomiting Senna/Docusate Sodium (Sennosides/Docusate Sodium Tablet) 1 tab PO DAILY PRN PRN Reason: Constipation Trazodone HCl (Trazodone Hcl 50 Mg Tablet) 50 mg PO BEDTIME MRX1 PRN PRN Reason: Insomnia Allergies Allergies Allergy/AdvReac Type Severity Reaction Status Date / Time No Known Allergies (No Known Allergy Verified 07/28/25 10:31 Allergies*) Assessment & Plan Assessment & Plan (1) Bipolar 1 disorder: Status: Acute Code(s): F31.9 - Bipolar disorder, unspecified (2) PTSD (post-traumatic stress disorder): Status: Acute Code(s): F43.10 - Post-traumatic stress disorder, unspecified (3) Alcohol use disorder: Status: Acute Code(s): F10.90 - Alcohol use, unspecified, uncomplicated (4) Cocaine use disorder: Status: Acute Code(s): F14.10 - Cocaine abuse, uncomplicated Plan Patient is a 40-year-old male with history of bipolar disorder, PTSD, cocaine use disorder and alcohol use disorder who presented to ER via ambulance due to suicidal ideation secondary to having a brain tumor. Plan: CV 15 minute safety checks Continue home medications obtain collateral referral to outpatient psychiatric providers encourage groups discharge planning 07/30/2025: No changes to current plan and did adjust Ativan dosing to be consistent with preadmission regimen. Educated on three-day notice process should he pursue same 07/31/2025: No changes. will formally discontinue Decadron as has not taken that in over a month after his surgery. Hopeful for discharge planning discussions with primary team. 08/01/25: Patient slept okay, okay appetite, reports that they sent him a lot of food. He feels tired, resting in bed, denies depression, but reports anxiety. He does not want to go to groups. Mostly isolated himself in room but calm and pleasant upon approach. Denies safety concerns hallucinations. We will discuss with patient regarding Keppra and Depakote level which he take it for mood stabilizer and for seizure. Keppra is 34.4. VPA level was 58.5: Both therapeutic. However due to depression/anxiety, patient be benefit for Depakote increase. We will discuss to see if patient is opening for the change. Patient educated on: medication risk/benefits and therapeutic strategies Informed Consent: understands Reason for continued inpatient stay Substantial Risk for: med/psych decompensation Time Spent With Patient Time: Total time managing care of this patient today ____ minutes.
[2025-08-01 19:46] VITALS: BP 109/60; PULSE 65; RESP 16; TEMP 36.7; O2SAT 96
[2025-08-02 07:52] VITALS: BP 101/62; PULSE 62; RESP 16; TEMP 36.7; O2SAT 98
[2025-08-02] MEDS: Nicotine 21 MG PATCH.TD24 TRANSDERMA (08:36)
[2025-08-02 20:00] VITALS: BP 103/55; PULSE 62; RESP 16; TEMP 36.4; O2SAT 98
--- NOTE | 2025-08-02 21:43 | HO.PSYCHPN ---
Subjective Subjective Date of Service: 08/02/25 Reason For Visit: crisis Subjective Notes: 3 Day Healthcare Proxy: No Guardianship: No Medical Problems Affecting Mental Status: No Interim History: Medical record and nursing notes reviewed; case discussed during rounds with team/nursing staff, and met with patient for supportive therapy/psychoeducation, as well as medication management. Patient slept all night, was compliant with medication. Appetite is fair. Patient mostly isolated himself in bed, resting. Reports that he has no refused safety concerns, no suicidal thoughts or hallucinations. No HI. Mild craving for alcohol but not wanting to back to drink. Educate patient on negative effects of alcohol especially when he has chemo treatment. Patient reported that he has nicotine patch and gum at home that he can continue using for nicotine craving. Reports he has Ativan left at home. Therefore no more needed to send more to prefer pharmacy. He has the support from family. Not sure who will able to pick him up tomorrow but he will find out by the end of today. Medication Compliance: Yes Side effects from medications: No Attending Groups: No Review of Systems Acute medical concerns: No Medical Review of Systems: unchanged Review of Systems Review of Systems nothing acute or new Yes all other systems are reviewed and are negative Mental Status Exam Mental Status Exam Narrative: Patient is alert and oriented; behavior is cooperative, friendly with mild to moderate anxiety; patient is not in distress; dressed in hospital attire with kempt hair and adequate hygiene; mood is described as good and affect congruent; eye contact appropriate; Speech is normal rate, volume and prosody and not pressured; no psychomotor agitation/retardation present; thought process is organized and goal directed; Thought content is WNL, pertinent to relevant topics and without any delusional content, paranoid ideation or grandiosity; denies any SI/SIB/HI. Denies AH and there is no evidence of perceptual disturbance. Patient's insight and judgment good. Diagnostics Vital Signs (24Hr): Vital Signs - 24 hr 08/02/25 07:52 Temperature 98.1 F Pulse Rate 62 Respiratory Rate 16 Blood Pressure 101/62 Pulse Oximetry 98 Oxygen Delivery Method Room Air BMI result Body Mass Index 24.6 Labs 07/28/25 11:10 07/30/25 07:11 Medications Medications Current Medications Acetaminophen (Acetaminophen 325 Mg Tablet) 650 mg PO Q6H PRN PRN Reason: Headache/Pain, Scale 1-10 Last Admin: 08/02/25 21:10 Dose: 650 mg Al Hydroxide/Mg Hydroxide (Magnesium Hydrox/Alum Hydrox 30 Ml Oral.Susp) 30 ml PO Q6H PRN PRN Reason: Heartburn/Nausea Divalproex Sodium (Divalproex Sodium 250 Mg Tablet.) 750 mg PO BID [facility] Last Admin: 08/02/25 21:09 Dose: 750 mg Escitalopram Oxalate (Escitalopram Oxalate 10 Mg Tablet) 10 mg PO DAILY [facility] Last Admin: 08/02/25 08:36 Dose: 10 mg Hydroxyzine HCl (Hydroxyzine Hcl 50 Mg Tablet) 50 mg PO Q6H PRN PRN Reason: mild anxiety Last Admin: 08/02/25 21:10 Dose: 50 mg Levetiracetam (Levetiracetam 500 Mg Tablet) 1,500 mg PO BID [facility] Last Admin: 08/02/25 21:09 Dose: 1,500 mg Lorazepam (Lorazepam 0.5 Mg Tablet) 0.5 mg PO Q4H PRN PRN Reason: Anxiety Last Admin: 08/02/25 21:10 Dose: 0.5 mg Magnesium Hydroxide (Milk Of Magnesia 30 Ml Oral.Susp) 30 ml PO DAILY PRN PRN Reason: Constipation Nicotine (Nicotine 21 Mg Patch.Td24) 21 mg TRANSDERMA DAILY [facility] Last Admin: 08/02/25 08:36 Dose: 21 mg Nicotine Polacrilex (Nicotine Polacrilex 2 Mg Gum) 4 mg BUCCAL Q2H PRN PRN Reason: Nicotine Cravings Omeprazole (Omeprazole 20 Mg Capsule.) 20 mg PO DAILY@0630 [facility] Last Admin: 08/02/25 06:36 Dose: 20 mg Ondansetron HCl (Ondansetron Odt 8 Mg Tab.Rapdis) 8 mg TRANSLINGU TID PRN PRN Reason: Nausea and Vomiting Senna/Docusate Sodium (Sennosides/Docusate Sodium Tablet) 1 tab PO DAILY PRN PRN Reason: Constipation Trazodone HCl (Trazodone Hcl 50 Mg Tablet) 50 mg PO BEDTIME MRX1 PRN PRN Reason: Insomnia Allergies Allergies Allergy/AdvReac Type Severity Reaction Status Date / Time No Known Allergies (No Known Allergy Verified 07/28/25 10:31 Allergies*) Assessment & Plan Assessment & Plan (1) Bipolar 1 disorder: Status: Acute Code(s): F31.9 - Bipolar disorder, unspecified (2) PTSD (post-traumatic stress disorder): Status: Acute Code(s): F43.10 - Post-traumatic stress disorder, unspecified (3) Alcohol use disorder: Status: Acute Code(s): F10.90 - Alcohol use, unspecified, uncomplicated (4) Cocaine use disorder: Status: Acute Code(s): F14.10 - Cocaine abuse, uncomplicated Plan Patient is a 40-year-old male with history of bipolar disorder, PTSD, cocaine use disorder and alcohol use disorder who presented to ER via ambulance due to suicidal ideation secondary to having a brain tumor. Plan: CV 15 minute safety checks Continue home medications obtain collateral referral to outpatient psychiatric providers encourage groups discharge planning 07/30/2025: No changes to current plan and did adjust Ativan dosing to be consistent with preadmission regimen. Educated on three-day notice process should he pursue same 07/31/2025: No changes. will formally discontinue Decadron as has not taken that in over a month after his surgery. Hopeful for discharge planning discussions with primary team. 08/01/25: Patient slept okay, okay appetite, reports that they sent him a lot of food. He feels tired, resting in bed, denies depression, but reports anxiety. He does not want to go to groups. Mostly isolated himself in room but calm and pleasant upon approach. Denies safety concerns hallucinations. We will discuss with patient regarding Keppra and Depakote level which he take it for mood stabilizer and for seizure. Keppra is 34.4. VPA level was 58.5: Both therapeutic. However due to depression/anxiety, patient be benefit for Depakote increase. We will discuss to see if patient is opening for the change. 08/02/25: Patient slept all night, was compliant with medication. Appetite is fair. Patient mostly isolated himself in bed, resting. Reports that he has no refused safety concerns, no suicidal thoughts or hallucinations. No HI. Mild craving for alcohol but not wanting to back to drink. Educate patient on negative effects of alcohol especially when he has chemo treatment. Patient reported that he has nicotine patch and gum at home that he can continue using for nicotine craving. Reports he has Ativan left at home. Therefore no more needed to send more to prefer pharmacy. He has the support from family. Not sure who will able to pick him up tomorrow but he will find out by the end of today. Review Depakote and [place] level with patient. Patient do not want any change in terms of mood stabilizer. Patient educated on: diagnosis, medication risk/benefits, substance abuse and therapeutic strategies Informed Consent: understands Reason for continued inpatient stay Substantial Risk for: med/psych decompensation Time Spent With Patient Time: Total time managing care of this patient today ____ minutes.
[2025-08-03 08:19] VITALS: BP 110/58; PULSE 62; RESP 16; TEMP 36.7; O2SAT 100
[2025-08-03] MEDS: Nicotine 21 MG PATCH.TD24 TRANSDERMA (08:25)
--- NOTE | 2025-08-03 09:13 | P.DS_ITS ---
DS: Providers Provider Date of Service: 08/03/25 Date of admission: 07/29/25 13:06 Date of discharge: 08/03/25 Primary care physician: Marilyn Myrick MD Attending physician on admission: Grecia Lazo Consults: 07/29/25 17:58 Addiction Medicine Provider Routine Consulting Provider: Addiction Covering Reason for consultation: Etoh use and cocaine Attending physician on discharge: Lamar Shetty DS: Diagnosis Discharge Diagnosis (1) Bipolar 1 disorder: Status: Acute (2) PTSD (post-traumatic stress disorder): Status: Acute (3) Alcohol use disorder: Status: Acute (4) Cocaine use disorder: Status: Acute DS: Medications Discharge Medications Home Medications: Home Medications ?Medication ?Instructions ?Recorded ?Confirmed sennosides 8.6 mg-docusate sodium 1 tab PO DAILY PRN c onstipation 07/28/25 07/29/25 50 mg tablet (Senexon-S) lomustine 10 mg capsule (Gleostine) 30 mg PO Q42D 04/1707/29/25 lomustine 100 mg capsule 200 mg PO Q42D 07/29/2504/17 (Gleostine) ondansetron HCl 8 mg tablet 8 mg PO TID PRN Nausea And Vomiting 07/29/25 07/29/25 procarbazine 50 mg capsule 50 mg PO DAILY 07/29/2504/17 (Matulane) Previous Rx's ?Medication ?Instructions ?Recorded lorazepam 1 mg tablet (Ativan) 0.5 - 1 mg (0.5 - 1 x 1 mg) PO TID 06/13/25 PRN seizure activity 30 days #60 tabs citalopram 20 mg tablet 10 mg (1/2 x 20 mg) PO DAILY 08/02/25 Depression #30 tabs divalproex 250 mg tablet,delayed 750 mg (3 x 250 mg) P O BID Mood 30 08/02/25 release days #180 tabs hydroxyzine HCl 50 mg tablet 50 mg PO BID PRN mild anx iety #60 08/02/25 tabs levetiracetam 1,000 mg tablet 1,500 mg (1.5 x 1,000 mg ) PO BID 08/02/25 (Keppra) seizure 30 days #90 tabs omeprazole magnesium 20 mg 20 mg PO DAILY@30 #30 tab s 08/02/25 tablet,delayed release Mental Status Exam Mental Status Exam Narrative: Patient presents well-groomed, casually dressed. Affect is euthymic with full range. Speech is clear and coherent. Thought process is linear and logical. Thought content is appropriate and relevant. Patient denies suicidal or homicidal ideation intent or plan. No overt psychotic symptoms elicited. Insight is fair. Judgment is fair Will work his own regarding substance use and alcohol issues. . Data Data Completed and Pending Completed studies during hospitalization [Text1]: 07/28/25 07/28/25 07/28/25 11:10 11:25 12:55 WBC 3.7 L RBC 3.50 L D Hgb 11.0 L D Hct 29.5 L D MCV 85.0 MCH 31.4 MCHC 37.3 H RDW 40.9 H Plt Count 48 L D MPV 10.0 Immature Gran % (Auto) 0.3 Neut % (Auto) 59.7 Lymph % (Auto) 30.4 [place] % (Auto) 8.8 Eos % (Auto) 0.3 Baso % (Auto) 0.5 Lymph # (Auto) 1.1 L [place] # (Auto) 0.3 Eos # (Auto) 0.0 Baso # (Auto) 0.0 Abs Immat Gran (auto) 0.01 Absolute Neuts (auto) 2.2 Absolute Nucleated RBC 0.000 Nucleated RBC % (auto) 0.0 Smear Tech's Comments VERIFIED Sodium 129 L Potassium 2.9 L* D Chloride 91 L Carbon Dioxide 27 Anion Gap 14 BUN 7 L Creatinine 0.75 Estim Creat Clear Calc 132.2 Estimated GFR > 60 Random Glucose 86 Estimat Average Glucose Hemoglobin A1c % Calcium 8.8 Total Bilirubin 0.8 AST 26 ALT 22 Alkaline Phosphatase 48 Total Protein 6.0 L Albumin 3.7 Triglycerides Cholesterol LDL Cholesterol, Calc HDL Cholesterol Urine Color Yellow Urine Appearance Clear Urine pH 6.5 Ur Specific [place] <= 1.005 Urine Protein Negative Urine Glucose (UA) Negative Urine Ketones Negative Urine Blood Negative Urine Nitrite Negative Ur Leukocyte Esterase Negative Salicylates < 5.0 L Urine Opiates Screen Not Detected Ur Buprenorphine Scrn Not Detected Ur Oxycodone Screen Not Detected Urine Methadone Screen Not Detected Urine Fentanyl Screen Not Detected Acetaminophen < 3 Ur Barbiturates Screen Not Detected Valproic Acid 58.5 Levetiracetam 34.4 Ur Phencyclidine Scrn Not Detected Ur Amphetamines Screen Not Detected U Benzodiazepines Scrn Not Detected Urine Cocaine Screen POSITIVE H U Marijuana (THC) Screen Not Detected Ethyl Alcohol 118 COVID-19 ([facility]) Negative COVID-19 Clin Com See Note 07/29/25 07/30/25 07/30/25 11:33 07:10 07:11 WBC RBC Hgb Hct MCV MCH MCHC RDW Plt Count MPV Immature Gran % (Auto) Neut % (Auto) Lymph % (Auto) [place] % (Auto) Eos % (Auto) Baso % (Auto) Lymph # (Auto) [place] # (Auto) Eos # (Auto) Baso # (Auto) Abs Immat Gran (auto) Absolute Neuts (auto) Absolute Nucleated RBC Nucleated RBC % (auto) Smear Tech's Comments Sodium 134 L 137 Potassium 4.7 D 4.3 Chloride 101 102 Carbon Dioxide 26 28 Anion Gap 12 11 L BUN 12 12 Creatinine 0.94 1.05 Estim Creat Clear Calc 105.5 94.4 Estimated GFR > 60 > 60 Random Glucose 100 98 Estimat Average Glucose 94 Hemoglobin A1c % 4.9 Calcium 9.8 D 9.7 Total Bilirubin 0.7 AST 18 ALT 22 Alkaline Phosphatase 52 Total Protein 6.6 Albumin 4.0 Triglycerides 65 Cholesterol 145 LDL Cholesterol, Calc 73 HDL Cholesterol 59 Urine Color Urine Appearance Urine pH Ur Specific [place] Urine Protein Urine Glucose (UA) Urine Ketones Urine Blood Urine Nitrite Ur Leukocyte Esterase Salicylates Urine Opiates Screen Ur Buprenorphine Scrn Ur Oxycodone Screen Urine Methadone Screen Urine Fentanyl Screen Acetaminophen Ur Barbiturates Screen Valproic Acid Levetiracetam Ur Phencyclidine Scrn Ur Amphetamines Screen U Benzodiazepines Scrn Urine Cocaine Screen U Marijuana (THC) Screen Ethyl Alcohol COVID-19 ([facility]) COVID-19 Clin Com DS: Summary Hospital Course Hospital Course: Per admitting providerr note: Patient is a 40-year-old male with history of bipolar disorder, PTSD, cocaine use disorder and alcohol use disorder who presented to ER via ambulance due to suicidal ideation secondary to having a brain tumor. Hospital Course: 07/30/2025: No changes to current plan and did adjust Ativan dosing to be consistent with preadmission regimen. Educated on three-day notice process should he pursue same. 07/31/2025: No changes. will formally discontinue Decadron as has not taken that in over a month after his surgery. Hopeful for discharge planning discussions with primary team. 08/01/25: Patient slept okay, okay appetite, reports that they sent him a lot of food. He feels tired, resting in bed, denies depression, but reports anxiety. He does not want to go to groups. Mostly isolated himself in room but calm and pleasant upon approach. Denies safety concerns hallucinations. We will discuss with patient regarding Keppra and Depakote level which he take it for mood stabilizer and for seizure. Keppra is 34.4. VPA level was 58.5: Both therapeutic. However due to depression/anxiety, patient be benefit for Depakote increase. We will discuss to see if patient is opening for the change. 08/02/25: Patient slept all night, was compliant with medication. Appetite is fair. Patient mostly isolated himself in bed, resting. Reports that he has no refused safety concerns, no suicidal thoughts or hallucinations. No HI. Mild craving for alcohol but not wanting to back to drink. Educate patient on negative effects of alcohol especially when he has chemo treatment. Patient reported that he has nicotine patch and gum at home that he can continue using for nicotine craving. Reports he has Ativan left at home. Therefore no more needed to send more to prefer pharmacy. He has the support from family. Not sure who will able to pick him up tomorrow but he will find out by the end of today. 08/03/25: Reviewed with patient regarding meds sent to preferred pharmacy. He has own Ativan supply, nursing notified to return to patient prior to discharge. Patient is picking up by family. He lives [place] block or two away from the hospital. No safety concerns. Will continue with chemo treatment for medical conditions. Time spent discussing smoking cessation with patient: 3 to 10 minutes Status at Discharge Cognitive/behavioral status at discharge: CONDITION ON DISCHARGE: CURRENT STATUS IT RELATES TO ADMISSION CRITERIA: Stable, improved. Improvements in depression, anxiety, and suicidal ideation. Improvements in sleep, energy, and appetite. and no hallucination or paranoia/delusional thought. Functional status at discharge: independent ambulation Overall status at discharge: patient is back to baseline Time Spent with Patient Time attestation: Total time managing care of this patient today ____ minutes. Time spent: Greater than 30 minutes Discharge Plan Discharge Anticipated Discharge Date/Time: 08/03/25 09:12 Patient Disposition: Home, Self-Care Discharge Diagnosis: Cocaine use d/o, bipolar, PTSD. Referrals: Cardiac Exercise Physiologist ([place]) [Other] - 1 Week Referral Note: *Please reach out to Otilio Siddiqi at the phone number listed above in order to check in regarding your tin recovery worker referral. Chary Verdugo (Therapy) [Other] - 08/09/25 12:00 pm Referral Note: IN OFFICE APPOINTMENT -Please arrive 15 minutes early to your appointment in order to fill out necessary paperwork. -Please bring your insurance card with you to this appointment. Liam Millan (Psychiatry) [Other] - 08/29/25 3:00 pm Referral Note: TELEHEALTH APPOINTMENT -Psychiatric Evaluation Liam Millan (Psychiatry) [Other] - 09/22/25 2:10 pm Referral Note: TELEHEALTH APPOINTMENT -Medication Management Po,Marilyn Sesay MD [Primary Care Provider, Internal Medicine] - 1 Week Referral Note: 08-01-25 Please contact your primary care provider within 7-10 days of discharge to schedule your follow up appt. No release on file. Discharge Medications: New hydroxyzine HCl 50 mg Tablet 50 mg PO BID PRN (Reason: mild anxiety) Qty: 60 0RF Continued lorazepam [Ativan] 1 mg tablet 0.5 - 1 mg PO TID MDD 2 tabs PRN (Reason: seizure activity) 30 Days Qty: 60 2RF sennosides-docusate sodium [Senexon-S] 8.6-50 mg tablet 1 tab PO DAILY PRN (Reason: constipation) Gleostine 100 mg capsule 200 mg PO Q42D Matulane 50 mg capsule 50 mg PO DAILY Gleostine 10 mg capsule 30 mg PO Q42D ondansetron HCl 8 mg tablet 8 mg PO TID PRN (Reason: Nausea And Vomiting) divalproex 250 mg tablet,delayed release (DR/EC) 750 mg PO BID 30 Days Qty: 180 0RF omeprazole magnesium 20 mg tablet,delayed release (DR/EC) 20 mg PO DAILY@0630 Qty: 30 0RF levetiracetam [Keppra] 1,000 mg tablet 1,500 mg PO BID 30 Days Qty: 90 0RF Changed citalopram 20 mg tablet 10 mg PO DAILY Qty: 30 0RF Discharge Orders: Discharge Order (Routine); Ordered 08/03/25 Ordered By: Lamar Shetty Diet: Regular diet Activity on Discharge: As tolerated Stand Alone Forms: Patient Portal Discharge page, Community Support Print Language: Danish Care Plan Goals: Maintain mood and safe behaviors Take medications as prescribed Continue to pursue sobriety Practice coping skills Continue with outpatient providers and reach out to them as needed Health Concerns: Mood stability and behaviors Sobriety Plan of Treatment: Follow up with your PCP, psychiatric provider and other outpatient providers regarding above concerns Take medications as prescribed Assessment: Assessment: Risk assessment at time of discharge: Patient was interviewed prior to discharge and found to be fully oriented and without any SI or HI. Patient has improved insight and judgment and wants to continue treatment. Patient is not in imminent risk of harm to self or others and has a safety plan that includes presenting to the closest ER or calling 911 if feeling unsafe. Patient has been observed closely by nursing and unit staff throughout admission; patient has not engaged in any behaviors that suggest dangerousness to self or others and has demonstrated appropriate behaviors and impulse control Discharge Date/Time: 08/03/25 10:29
== END 2025-08-03 10:29 | disposition home or self-care (01) | DRG 885 ==
LOC: HO.ED 13:46 → HO.PADLT16 15:38 → HO.ED 07-29 09:22 → HO.PADLT16 07-29 13:11
PROVIDERS: Physician Assistant Medical; Admitting Provider Registered Nurse; Emergency Provider Emergency Medicine; PCP Internal Medicine; Visit Provider Psychiatry & Neurology Psychiatry
DX: F31.9 Bipolar disorder, unspecified (principal); R45.851 Suicidal ideations; D49.6 Neoplasm of unspecified behavior of brain; F17.210 Nicotine dependence, cigarettes, uncomplicated; F10.90 Alcohol use, unspecified, uncomplicated; F14.10 Cocaine abuse, uncomplicated; Z71.6 Tobacco abuse counseling; Y90.5 Blood alcohol level of 100-119 mg/100 ml; F43.10 Post-traumatic stress disorder, unspecified; Z20.822 Contact with and (suspected) exposure to COVID-19; Z79.899 Other long term (current) drug therapy
CPT/HCPCS: 36415; 80048; 80053; 80061; 80143; 80164; 80177; 80179; 80307; 81003; 83036; 85025; 87635; 93005; 99285; J8540; S9485

== ENCOUNTER → 2025-07-28 10:41 | Outpatient (BNV) | payer OTHER, SELFPAY | PROVIDERS: PCP Internal Medicine; Visit Provider Internal Medicine Cardiovascular Disease | DX: I45.4 Nonspecific intraventricular block (principal) | CPT/HCPCS: 93010 ==

== ENCOUNTER → 2025-07-29 13:06 | Outpatient (BNV) | payer OTHER, SELFPAY | PROVIDERS: Admitting Provider Registered Nurse; Emergency Provider Emergency Medicine; PCP Internal Medicine; Visit Provider Registered Nurse | DX: F31.9 Bipolar disorder, unspecified (principal); F43.10 Post-traumatic stress disorder, unspecified; F10.90 Alcohol use, unspecified, uncomplicated; F14.10 Cocaine abuse, uncomplicated | CPT/HCPCS: 90792 ==